=== PATIENT | male | born 1935 | race Caucasian/White ===

== ENCOUNTER → 2017-08-07 | Outpatient (CLI) | payer MEDICARE, OTHER | END | disposition home or self-care (01) | LOC: GMAH 10:33 | PROVIDERS: ATTEND Family Medicine | DX: E78.2 Mixed hyperlipidemia (principal); Z12.5 Encounter for screening for malignant neoplasm of prostate | CPT/HCPCS: 84443; 84550; G0103 ==

== ENCOUNTER → 2017-08-13 | Outpatient (CLI) | payer MEDICARE, OTHER ==
--- NOTE | 2017-08-14 10:39 | CT ---
EXAM DESCRIPTION: Chest w/o Contrast CLINICAL HISTORY: 82 years, Male, COPD W/ ACUTE EXACERBATION COMPARISON: August 04, 2016 TECHNIQUE: Thin-section noncontrast axial CT images are obtained according to our protocol. Reconstructed MPR images are created and reviewed as well. This exam was performed according to our departmental dose-optimization program, which includes automated exposure control, adjustment of the mA and/or kV according to patient size and/or use of iterative reconstruction technique. FINDINGS: Noncontrast imaging demonstrates advanced emphysema involving both lungs with modest volume loss in the right hemithorax suggesting prior surgical resection and small pericardial effusion is present with normal sized heart. Extensive vascular calcification without aortic aneurysm and extensive coronary calcification is noted. The thoracic inlet and superior mediastinum are unremarkable and no central hilar masses are seen. Pulmonary window images demonstrate slightly coarsened interstitial and fibrotic markings at the lung bases consistent with mild subpleural fibrotic change and mild bullous change, increased slightly from previous years study. Dense lobar or segmental consolidation or pleural effusion is not apparent. Tiny amount of bronchiectasis at the posterior lateral right lung base is evident. Stable postsurgical changes in the posterior right chest wall are suggested with partial resection of a posterior rib and some deformity of the next rib cephalad. IMPRESSION: 1. Diffuse bilateral advanced emphysematous changes with mild basilar of bullous changes in developing mild honeycombing at each lung base consistent with early basilar pulmonary fibrotic disease. 2. Slightly coarsened interstitial markings at the lung bases, more prominent than July 2016 study consistent with minimal inflammation but no lobar or segmental consolidation seen. 3. Interval development of small pericardial effusion. 4. Extensive aortic, great vessel, and coronary calcification. 5. No pulmonary mass or metastatic disease or cardiac decompensation seen. 6. Modest volume loss right hemithorax, unchanged and most consistent with prior right-sided thoracic surgery Electronically signed by: Walter Peace MD 08/14/2017 10:37 AM CDT
== END | disposition home or self-care (01) ==
LOC: CT 11:00
PROVIDERS: ATTEND Family Medicine
DX: J44.1 Chronic obstructive pulmonary disease with (acute) exacerbation (principal)

== ENCOUNTER → 2017-09-11 | Outpatient (CLI) | payer MEDICARE, OTHER ==
--- NOTE | 2017-09-14 08:18 | US ---
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 FINDINGS: The right carotid system demonstrates severe intimal thickening. The common carotid artery demonstrates severe amount of plaques throughout. And very irregular and mixed. With stenosis up to about 80% cross-sectional reduction at the proximal internal carotid artery. The left carotid system demonstrates severe intimal thickening. The common carotid artery demonstrates large amount irregular mixed plaques as well.. The internal carotid artery demonstrates large amount Plaques resulting up to about a 60-70% cross-sectional area reduction. The right carotid system demonstrates unremarkable waveforms. The right vertebral artery demonstrates antegrade flow. The left carotid system demonstrates unremarkable waveforms. The left vertebral artery demonstrates antegrade flow. On the right, the velocity in the proximal common carotid artery is 95 cm/sec. The proximal internal carotid artery is 148 cm/sec. The ICA/CCA ratio is 1.6 On the left, the velocity in the proximal common carotid artery is 101 cm/sec. The mid internal carotid artery is 132 cm/sec. The ICA/CCA ratio is 1.3. IMPRESSION: Large amount of irregular mixed plaque burden in both carotid systems. Resulting in about 80% cross-sectional reduction the right proximal internal carotid artery and about a 60-70% in the left. Although hemodynamically these do not measure as much. Recommend CT angiography for greater detailed evaluation. Electronically signed by: Renato Michael MD 09/14/2017 8:17 AM CDT
== END | disposition home or self-care (01) ==
LOC: US 10:09
PROVIDERS: ATTEND Family Medicine
DX: I65.23 Occlusion and stenosis of bilateral carotid arteries (principal)

== ENCOUNTER → 2017-10-22 | Outpatient (CLI) | payer MEDICARE, OTHER ==
--- NOTE | 2017-10-23 04:22 | RAD ---
Examination: XR SHOULDER 2 OR MORE VIEWS dated 10/22/2017 7:59 AM [facility] STAFF History: PAIN IN RIGHT SHOULDER Comparison: None Technique: Four views of the right shoulder FINDINGS AND IMPRESSION: Multiple suture anchors are seen within the humeral head. There are mild degenerative changes of the acromioclavicular and glenohumeral joints. No fracture or dislocation. Surgical sutures of the right lung. Electronically signed by: Nicko Nur MD 10/23/2017 4:20 AM [facility] STA[facility]
== END | disposition home or self-care (01) ==
LOC: RAD 08:00
PROVIDERS: ATTEND Orthopaedic Surgery
DX: M25.511 Pain in right shoulder (principal)

== ENCOUNTER → 2018-02-09 | Outpatient (CLI) | payer OTHER | LOC: GMAH 16:43 | PROVIDERS: ATTEND Family Medicine | DX: R07.82 Intercostal pain (principal); R07.89 Other chest pain ==

== ENCOUNTER 2018-05-13 12:02 | Emergency (ER) | payer OTHER ==
[2018-05-13 12:17] VITALS: TEMP 96.7
--- NOTE | 2018-05-13 12:49 | ED.PDOC ---
History of Present Illness - General Chief Complaint: Cardiovascular Problem Stated Complaint: Low heart rate, weakness Time Seen by Provider: 05/13/18 12:33 Source: patient Additional Information: 82 YEAR OLD WHITE MALE WITH KNOWN HISTORY OF CAD HAD STENT SUPPORTED ANGIOPLASTY FOLLOWED BY [facility]ER[facility] VALVULOPLASTY AT [facility] Thursday [place] FIRST 2 DAYS AFTER DISCHARGE SINCE THEN HE HAS BEEN FEELING WEAK DIZZY [place] ON AMBULATION AND HAS NO ENERGY TO MOVE AROUND HE ALSO REPORTS SHORTNESS OF BREATH WITH EXERTION NO SYNCOPAL EPISODE NO CHEST PAIN REPORTED NO SWELLING IN THE LEGS HE WAS SEEN AT HIS DOCTORS OFFICE THIS MORNING DR ROBBINS CALLED HERE AND EAS CONCERNED ABOUT POSSIBLE HEART BLOCK THE EKG DONE AT HIS OFFICE WAS EVIDENT FOR BRADYARRYTHMIA LEFT AXIS DEVIATION AND RBBB - History of Present Illness Timing/Duration: getting worse, changing over time Severity: moderate Associated Symptoms: shortness of breath, weakness Allergies/Adverse Reactions: Allergies NO KNOWN ALLERGY Allergy (Verified 05/13/18 12:17) Home Medications: Ambulatory Orders Allopurinol [Zyloprim] 300 mg PO DAILY 08/09/15 Aspirin [Baby Aspirin] 81 mg PO QD 08/09/15 Bisacodyl [Dulcolax] 5 mg PO BID 08/09/15 Estazolam 1 mg PO BEDTIME 08/09/15 Fiber [Fiber Formula] 1 cap PO QID 08/09/15 Fluticasone Furoate [Veramyst] 50 mcg NA BEDTIME 08/09/15 Gabapentin [Neurontin] 300 mg PO TID 08/09/15 Levothyroxine Sodium 50 mcg PO DAILY 08/09/15 Losartan Potassium 50 mg PO DAILY 08/09/15 Misc Natural Products [Saw [place] Plus] 2 cap PO DAILY 08/09/15 Multiple Vitamins W/ Minerals [Centrum Silver] 1 tab PO DAILY 08/09/15 Omeprazole 20 mg PO DAILY 08/09/15 Simvastatin 20 mg PO BEDTIME 08/09/15 Tamsulosin HCl [Flomax] 0.4 mg PO BEDTIME 08/09/15 Celecoxib 200 mg PO DAILY 08/10/16 Finasteride 5 mg PO BEDTIME 08/10/16 Nu Remedy Plus 1 each PO BEDTIME 08/10/16 Olopatadine HCl [Pataday] 1 drop BOTH_EYES DAILY 08/10/16 Olopatadine HCl [Pazeo] 1 drop BOTH_EYES DAILY 08/10/16 Columbia Xl 1 each PO QID 08/10/16 Ondansetron HCl [Zofran] 4 mg PO Q6H PRN #20 tab 08/10/16 Review of Systems - Review of Systems Constitutional: States: no symptoms reported, weakness EENTM: States: no symptoms reported Respiratory: States: short of breath Cardiology: States: no symptoms reported Gastrointestinal/Abdominal: States: no symptoms reported Genitourinary: States: no symptoms reported Musculoskeletal: States: no symptoms reported Skin: States: no symptoms reported Neurological: States: no symptoms reported Endocrine: States: no symptoms reported Past Medical History (General) - Patient Medical History Hx Seizures: No Hx Stroke: No Hx Dementia: No Hx of COPD: No Hx Cardiac Disorders: Yes - Aortic valve replacement 04/2018; hyperlipidemia Hx Congestive Heart Failure: No Hx Hypertension: Yes Hx Thyroid Disease: Yes Hx Diabetes: No Hx Gastroesophageal Reflux: Yes Hx Cancer: Yes - lung CA (R) 2010 with partial bilat upper lobectomies Hx MRSA: No Surgical History: other - Vaccination History Hx Influenza Vaccination: Yes - 2016 Hx Pneumococcal Vaccination: Yes - 2016 - Social History Hx Tobacco Use: No Family Medical History - Family History Father Family History: No Known Living Status: Cause of : Old age Physical Exam - Physical Exam General Appearance: Alert, Anxious Eye Exam: bilateral normal Ears, Nose, Throat: hearing grossly normal, normal ENT inspection, normal pharynx, abnormal TM (R) Neck: non-tender, full range of motion, supple Respiratory: chest non-tender, lungs clear, normal breath sounds, no respiratory distress, no accessory muscle use Cardiovascular/Chest: normal peripheral pulses, regular rate, rhythm, no edema, no gallop, no JVD, no murmur Peripheral Pulses: radial,right: 2+, radial,left: 2+, femoral,right: 2+, femoral ,left: 2+ Gastrointestinal/Abdominal: normal bowel sounds, non tender, soft, no organomegaly Back Exam: normal inspection, no CVA tenderness, no vertebral tenderness, CVA tenderness (R) Neurologic: city 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-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 nml as tested, no motor/sensory deficits, alert, normal mood/affect, oriented x 3 Progress - Results/Orders Results/Orders: Laboratory Tests 06/28/18 12:32 WBC 9.5 RBC 3.91 L Hgb 9.7 L Hct 30.2 L MCV 77.2 L MCH 24.8 L MCHC 32.2 L RDW 17.1 H Plt Count 117 L MPV 8.2 Absolute Neuts (auto) 6.20 Absolute Lymphs (auto) 2.10 Absolute Monos (auto) 1.00 H Absolute Eos (auto) 0.20 Absolute Basos (auto) 0.10 Neutrophils % 64.9 Lymphocytes % 22.2 Monocytes % 10.5 H Eosinophils % 1.6 Basophils % 0.8 PT 12.7 H INR 1.100 PTT (SP) 29.9 Sodium 139 Potassium 4.5 Chloride 108 Carbon Dioxide 26 Anion Gap 9.5 L BUN 26 H Creatinine 1.38 H BUN/Creatinine Ratio 18.8 Random Glucose 95 Serum Osmolality 282.1 Calcium 8.5 Magnesium 2.3 Creatine Kinase 73 CK-MB (CK-2) 1.3 CK-MB (CK-2) % Not Reportable Troponin I 0.05 B-Natriuretic Peptide 75.[address] DARIUS DAVIES WATER FITNESS INSTRUCTOR AT [facility] HE ACCECPTED THE PATIENT FOR TRANSFER FOR POSSIBLE PACE MAKER DISCUSSED WITH DR ROBBINS OF THE EVENTS WILL ARRANGE TRANSFER - EKG/XRAY/CT Comments: FIRST DEGREE AV BLOCK RBBB LAD XRAY: chest - normal Departure - Departure Clinical Impression: Bradyarrhythmia, First degree atrioventricular block Time of Disposition: 14:18 Disposition: Transfer to Hospital Condition: Good Departure Forms: ED Discharge - Pt. Copy, Patient Portal Self Enrollment Instructions: DI for Chest Pain Referrals: Josias Robbins MD [Primary Care Provider] - 1-2 Weeks Home Medications: Ambulatory Orders Allopurinol [Zyloprim] 300 mg PO DAILY 08/09/15 Aspirin [Baby Aspirin] 81 mg PO QD 08/09/15 Bisacodyl [Dulcolax] 5 mg PO BID 08/09/15 Estazolam 1 mg PO BEDTIME 08/09/15 Fiber [Fiber Formula] 1 cap PO QID 08/09/15 Fluticasone Furoate [Veramyst] 50 mcg NA BEDTIME 08/09/15 Gabapentin [Neurontin] 300 mg PO TID 08/09/15 Levothyroxine Sodium 50 mcg PO DAILY 08/09/15 Losartan Potassium 50 mg PO DAILY 08/09/15 Misc Natural Products [Saw [place] Plus] 2 cap PO DAILY 08/09/15 Multiple Vitamins W/ Minerals [Centrum Silver] 1 tab PO DAILY 08/09/15 Omeprazole 20 mg PO DAILY 08/09/15 Simvastatin 20 mg PO BEDTIME 08/09/15 Tamsulosin HCl [Flomax] 0.4 mg PO BEDTIME 08/09/15 Celecoxib 200 mg PO DAILY 08/10/16 Finasteride 5 mg PO BEDTIME 08/10/16 Nu Remedy Plus 1 each PO BEDTIME 08/10/16 Olopatadine HCl [Pataday] 1 drop BOTH_EYES DAILY 08/10/16 Olopatadine HCl [Pazeo] 1 drop BOTH_EYES DAILY 08/10/16 Columbia Xl 1 each PO QID 08/10/16 Ondansetron HCl [Zofran] 4 mg PO Q6H PRN #20 tab 08/10/16 Comments: PATIENT WILL BE TRANSFERED TO [facility] UNDER THE SERVICE OF WATER FITNESS INSTRUCTOR DR DAVIES
--- NOTE | 2018-05-13 13:13 | RAD ---
EXAM DESCRIPTION: Chest,1 View CLINICAL HISTORY: 82 years Male, Bradycardia, s/p aortic valve replacement COMPARISON: CT chest dated 08/05/2017. TECHNIQUE: AP radiograph of the chest was obtained. FINDINGS: Trachea is midline.The cardiomediastinal silhouette is normal in size. The pulmonary vasculature is within normal limits. Blunting of the right costophrenic secondary to pleural thickening and/or small pleural effusion. No acute consolidation. No evidence of pleural effusions. IMPRESSION: Blunting of the right costophrenic secondary to pleural thickening and/or small pleural effusion. Electronically signed by: Lilibeth Sims MD 05/13/2018 1:12 PM CDT
[2018-05-13 16:19] VITALS: BP 149/95; O2SAT 95
== END 2018-05-13 16:05 | disposition short-term general hospital (02) ==
LOC: ER 12:02
DX: I44.0 Atrioventricular block, first degree (principal); I49.8 Other specified cardiac arrhythmias; E78.5 Hyperlipidemia, unspecified; I10 Essential (primary) hypertension; E07.9 Disorder of thyroid, unspecified; K21.9 Gastro-esophageal reflux disease without esophagitis; Z95.5 Presence of coronary angioplasty implant and graft; Z95.2 Presence of prosthetic heart valve; Z79.82 Long term (current) use of aspirin; Z85.118 Personal history of other malignant neoplasm of bronchus and lung

== ENCOUNTER → 2019-01-19 | Outpatient (CLI) | payer OTHER | LOC: GMAH 10:44 | PROVIDERS: ATTEND Family Medicine | DX: I10 Essential (primary) hypertension (principal); Z12.5 Encounter for screening for malignant neoplasm of prostate | CPT/HCPCS: 84443; 84550; G0103 ==

== ENCOUNTER → 2019-05-10 | Outpatient (CLI) | payer OTHER | LOC: LAB.O 12:09 | PROVIDERS: ATTEND Internal Medicine Interventional Cardiology | DX: Q23.0 Congenital stenosis of aortic valve (principal) ==

== ENCOUNTER → 2020-03-20 | Outpatient (CLI) | payer OTHER | LOC: GMA MATASK 11:05 | PROVIDERS: ATTEND Family Medicine | DX: M79.602 Pain in left arm (principal) ==

== ENCOUNTER → 2020-03-23 | Outpatient (CLI) | payer OTHER | LOC: GMA MATASK 11:42 | PROVIDERS: ATTEND Family Medicine | DX: I11.0 Hypertensive heart disease with heart failure (principal); I50.32 Chronic diastolic (congestive) heart failure ==

== ENCOUNTER → 2020-03-27 | Outpatient (CLI) | payer OTHER | LOC: ECHO 15:56 | PROVIDERS: ATTEND Family Medicine | DX: I50.32 Chronic diastolic (congestive) heart failure (principal); I51.7 Cardiomegaly; Z95.2 Presence of prosthetic heart valve; Z95.0 Presence of cardiac pacemaker ==

== ENCOUNTER 2020-03-29 01:54 | Observation (INO) | payer OTHER ==
[2020-03-29] MEDS ORDERED: ASPIRIN (ENTERIC COATED) 325 MG TAB PO ONE (02:15)
[2020-03-29] MEDS ORDERED: NITROGLYCERIN 0.4 MG 25 EA TAB SL ONE (02:15)
--- NOTE | 2020-03-29 02:19 | ED.PDOC ---
History of Present Illness - General Chief Complaint: Chest Pain/OK Stated Complaint: chest pain to left chest wall and back Time Seen by Provider: 03/29/20 02:15 Additional Information: This is an 84-year-old male patient, with history of coronary artery disease, with history of stents and valve replacement, patient presents to the ER with left-sided chest pain, that woke him up from his sleep, this pain is been an ongoing problem is been going on for 10 days, but today it woke him up from his sleep so he decided to come in and get himself checked Pain is gotten better Patient does not appear in distress Patient denies any nausea vomiting chills shortness of breath no diaphoresis denies any dizziness or headaches or any other concerns - History of Present Illness Severity/Quality: sharp Location: other Chest Pain Radiation: no radiation Activities at Onset: sleep Prior Chest Pain/Cardiac Workup: echocardiography Improving Factors: nothing Worsening Factors: nothing Nitro Today/Relief: no nitro taken today Aspirin Treatment Today: no aspirin today Allergies/Adverse Reactions: Allergies NO KNOWN ALLERGY Allergy (Verified 05/13/18 12:17) Home Medications: Ambulatory Orders Allopurinol [Zyloprim] 300 mg PO DAILY 08/09/15 Aspirin [Baby Aspirin] 81 mg PO QD 08/09/15 Bisacodyl [Dulcolax] 5 mg PO BID 08/09/15 Estazolam 1 mg PO BEDTIME 08/09/15 Fiber [Fiber Formula] 1 cap PO QID 08/09/15 Fluticasone Furoate [Veramyst] 50 mcg NA BEDTIME 08/09/15 Gabapentin [Neurontin] 300 mg PO TID 08/09/15 Levothyroxine Sodium 50 mcg PO DAILY 08/09/15 Losartan Potassium 50 mg PO DAILY 08/09/15 Misc Natural Products [Saw [place] Plus] 2 cap PO DAILY 08/09/15 Multiple Vitamins W/ Minerals [Centrum Silver] 1 tab PO DAILY 08/09/15 Omeprazole 20 mg PO DAILY 08/09/15 Simvastatin 20 mg PO BEDTIME 08/09/15 Tamsulosin HCl [Flomax] 0.4 mg PO BEDTIME 08/09/15 Celecoxib 200 mg PO DAILY 08/10/16 Finasteride 5 mg PO BEDTIME 08/10/16 Nu Remedy Plus 1 each PO BEDTIME 08/10/16 Olopatadine HCl [Pataday] 1 drop BOTH_EYES DAILY 08/10/16 Olopatadine HCl [Pazeo] 1 drop BOTH_EYES DAILY 08/10/16 Lena Xl 1 each PO QID 08/10/16 Ondansetron HCl [Zofran] 4 mg PO Q6H PRN #20 tab 08/10/16 Review of Systems - Review of Systems Constitutional: States: no symptoms reported EENTM: States: no symptoms reported Respiratory: States: no symptoms reported Cardiology: States: chest pain Gastrointestinal/Abdominal: States: no symptoms reported Genitourinary: States: no symptoms reported Musculoskeletal: States: no symptoms reported Skin: States: no symptoms reported Neurological: States: no symptoms reported Endocrine: States: no symptoms reported Hematologic/Lymphatic: States: no symptoms reported Past Medical History (General) - Patient Medical History Hx Seizures: No Hx Stroke: No Hx Dementia: No Hx Asthma: No Hx of COPD: No Hx Cardiac Disorders: Yes - Aortic valve replacement 04/2018; hyperlipidemia, stents Hx Congestive Heart Failure: No Hx Pacemaker: Yes Hx Hypertension: Yes Hx Thyroid Disease: Yes Hx Diabetes: No Hx Gastroesophageal Reflux: Yes Hx Renal Disease: No Hx Cancer: Yes - lung CA (R) 2010 with partial bilat upper lobectomies Hx of HIV: No Hx Hepatitis C: No Hx MRSA: No - Vaccination History Hx Tetanus, Diphtheria Vaccination: Yes - unknown date Hx Influenza Vaccination: Yes - 2016 Hx Pneumococcal Vaccination: Yes - 2017 - Social History Hx Tobacco Use: No Family Medical History - Family History Father Family History: No Known Living Status: Cause of : Old age Physical Exam - Physical Exam General Appearance: Anxious, Well Developed, Well Groomed Eyes, Ears, Nose, Throat Exam: PERRL/EOMI, normal ENT inspection, TMs normal Neck: non-tender, full range of motion, supple, normal inspection Respiratory: chest non-tender, lungs clear, normal breath sounds, no respiratory distress, no accessory muscle use Cardiovascular/Chest: normal peripheral pulses, regular rate, rhythm, no edema, no gallop, no JVD, no murmur Peripheral Pulses: radial,right: 2+, radial,left: 2+ Gastrointestinal/Abdominal: normal bowel sounds, non tender, soft, no organomegaly, no pulsatile mass Extremity: normal range of motion, non-tender, normal inspection, no pedal edema, no calf tenderness, normal capillary refill Neurologic: 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 TECHNIQUE: XR CHEST 1 VIEW 03/29/2020 2:09 AM CDT FINDINGS: The heart is mildly enlarged. Left dual- chamber pacemaker is present. Lungs are clear without consolidation, atelectasis, mass or edema. There is no pleural effusion. There is no pneumothorax. There are no acute osseous findings. IMPRESSION: Clear lungs. 03/29/20 02:35 03/29/20 02:40 This a patient presents to the ER with chest pain, patient has multiple risk factor for coronary artery disease including stents including valve replacement, patient pain got better with aspirin and nitro went from a 7 to a 5, patient chest x-ray did not show evidence of whether we will start him no cephalization no pleural effusions for serial troponins were negative, patient does not appear any distress did receive aspirin nitro in the ER will consult with the hospitalist for admission for chest pain work-up will get a second set of troponin at the 2-hour shanika 03/29/20 02:42 Patient will be admitted for chest pain work-up Departure - Departure Clinical Impression: Chest pain Qualifiers: Chest pain type: unspecified Qualified Code(s): R07.9 - Chest pain, unspecified Disposition: Admit Patient Departure Forms: ED Discharge - Pt. Copy, Patient Portal Self Enrollment Instructions: DI for Chest Pain Referrals: Jamison Malin MD [Primary Care Provider] - 1-2 Weeks Home Medications: Ambulatory Orders Allopurinol [Zyloprim] 300 mg PO DAILY 08/09/15 Aspirin [Baby Aspirin] 81 mg PO QD 08/09/15 Bisacodyl [Dulcolax] 5 mg PO BID 08/09/15 Estazolam 1 mg PO BEDTIME 08/09/15 Fiber [Fiber Formula] 1 cap PO QID 08/09/15 Fluticasone Furoate [Veramyst] 50 mcg NA BEDTIME 08/09/15 Gabapentin [Neurontin] 300 mg PO TID 08/09/15 Levothyroxine Sodium 50 mcg PO DAILY 08/09/15 Losartan Potassium 50 mg PO DAILY 08/09/15 Misc Natural Products [Saw [place] Plus] 2 cap PO DAILY 08/09/15 Multiple Vitamins W/ Minerals [Centrum Silver] 1 tab PO DAILY 08/09/15 Omeprazole 20 mg PO DAILY 08/09/15 Simvastatin 20 mg PO BEDTIME 08/09/15 Tamsulosin HCl [Flomax] 0.4 mg PO BEDTIME 08/09/15 Celecoxib 200 mg PO DAILY 08/10/16 Finasteride 5 mg PO BEDTIME 08/10/16 Nu Remedy Plus 1 each PO BEDTIME 08/10/16 Olopatadine HCl [Pataday] 1 drop BOTH_EYES DAILY 08/10/16 Olopatadine HCl [Pazeo] 1 drop BOTH_EYES DAILY 08/10/16 Lena Xl 1 each PO QID 08/10/16 Ondansetron HCl [Zofran] 4 mg PO Q6H PRN #20 tab 08/10/16 Decision To Admit - Decistion To Admit Decision to Admit Reason: Admit from ER Decision to Admit Date: 03/29/20 Decision to Admit Time: 02:41
--- NOTE | 2020-03-29 02:28 | RAD ---
CLINICAL HISTORY: chest pain COMPARISON: 05/05/2018. TECHNIQUE: XR CHEST 1 VIEW 03/29/2020 2:09 AM CDT FINDINGS: The heart is mildly enlarged. Left dual-chamber pacemaker is present. Lungs are clear without consolidation, atelectasis, mass or edema. There is no pleural effusion. There is no pneumothorax. There are no acute osseous findings. IMPRESSION: Clear lungs. Electronically signed by: Kota Caban MD 03/29/2020 2:27 AM CDT
[2020-03-29] MEDS ORDERED: ACETAMINOPHEN 325 MG TAB PO PRN (05:18)
[2020-03-29] MEDS ORDERED: NITROGLYCERIN 0.4 MG 25 EA TAB SL PRN (05:18)
[2020-03-29] MEDS ORDERED: MORPHINE SULFATE INJ 10 MG/ML VIAL IV PRN (05:18)
[2020-03-29] MEDS ORDERED: SODIUM CHLORIDE 0.9% (FLUSH) 10 ML SYG IV PRN (05:18)
[2020-03-29] MEDS ORDERED: ALBUTEROL SULFATE 2.5 MG/3 ML VIAL NEB PRN (05:27)
[2020-03-29] MEDS ORDERED: IV SET AND CAP CHANGE INJ INJ SCH (05:30)
[2020-03-29] MEDS ORDERED: GABAPENTIN 400 MG CAP ONE (07:27)
[2020-03-29] MEDS ORDERED: LEVOTHYROXINE SODIUM 0.075 MG TAB ONE (07:27)
[2020-03-29] MEDS ORDERED: BISACODYL TAB 5 MG TAB PO SCH (09:00)
[2020-03-29] MEDS ORDERED: SODIUM CHLORIDE 0.9% (FLUSH) 10 ML SYG IV SCH (09:00)
[2020-03-29] MEDS ORDERED: CLOPIDOGREL 75 MG TAB PO SCH (09:00)
[2020-03-29] MEDS ORDERED: POLYETHYLENE GLYCOL 3350 17 GM PCKT PO SCH (09:00)
[2020-03-29] MEDS ORDERED: ENOXAPARIN SODIUM 40 MG/0.4 ML SYG SUBCU SCH (09:00)
[2020-03-29] MEDS ORDERED: ALLOPURINOL 300 MG TAB PO SCH (09:00)
[2020-03-29] MEDS ORDERED: ASPIRIN (CHEWABLE) 81 MG TAB PO SCH (09:00)
[2020-03-29] MEDS ORDERED: LEVOTHYROXINE SODIUM 0.075 MG TAB PO SCH (09:00)
[2020-03-29] MEDS: GABAPENTIN 400 MG CAP PO SCH ×2 (09:19→14:30)
[2020-03-29 14:51] VITALS: BP 126/78; TEMP 98.1; O2SAT 94
[2020-03-29] MEDS ORDERED: FINASTERIDE 5 MG TAB PO SCH (21:00)
[2020-03-29] MEDS ORDERED: FLUTICASONE FUROATE 50 MCG SCH (21:00)
[2020-03-29] MEDS ORDERED: CETIRIZINE HCL 10 MG TAB PO SCH (21:00)
[2020-03-29] MEDS ORDERED: TAMSULOSIN 0.4 MG CAP PO SCH (21:00)
[2020-03-29] MEDS ORDERED: SIMVASTATIN 20 MG TAB PO SCH (21:00)
[2020-03-30] MEDS ORDERED: ASPIRIN TABLET 325 MG TAB PO SCH (09:00)
--- NOTE | 2020-04-10 14:09 | SSS ---
SUPERVISING PHYSICIAN: Quique Meléndez MD DATE OF ADMISSION: 03/29/20 DATE OF DISCHARGE: 03/29/20 DISCHARGE DIAGNOSIS: 1. Left sided chest pain. Acute coronary syndrome has been ruled out with negative serial cardiac enzymes and no EKG changes as well as his chest pain has resolved. 2. Congestive heart failure with mild diastolic etiology. He has an ejection fraction of 50-55% on his echocardiogram completed on 03/27/20. 3. Hypertension on medication. 4. Coronary artery stenosis. 5. Hypothyroidism. HISTORY OF PRESENT ILLNESS: This is an 84-year-old male patient who presented to the Emergency Room due to left sided chest pain. It has been going off and on for several days, but it woke him up during the night and was much worse than it has been. It actually woke him up during his sleep. He presented to the Emergency Room. He actually had an echocardiogram done several days before, but he had not heard the results from it. There was no diaphoresis, nausea or vomiting. He did say that it did radiate up to his left neck, but was not in his back. His initial vital signs showed temperature 98.1, heart rate 80, blood pressure 185/113, respiratory rate 18, O2 saturation 94%. His lab studies showed CBC that was basically unremarkable. Electrolytes were unremarkable with a creatinine of 1.72. His baseline creatinine is 1.2. His initial cardiac enzymes were negative. He had followup cardiac enzymes in 2 hours and were also negative. His urinalysis was unremarkable. His chest x-ray showed clear lungs. His EKG showed normal sinus rhythm with a left bundle branch block. I was called by the ER physician to place the patient in observation. PAST MEDICAL HISTORY: 1. Coronary artery stenosis. 2. Hypertension. 3. Hyperlipidemia. 4. Hypothyroidism. 5. Gout. PAST SURGICAL HISTORY: 1. Right total knee arthroplasty. 2. Rotator cuff repair, bilaterally. 3. Back surgery. 4. Hemorrhoidectomy. 5. Valve replacement. 7. Pacemaker insertion. OUTPATIENT MEDICATIONS: 1. Albuterol sulfate. 2. Ascorbic acid. 3. Fiber. 4. New Remedy Plus. 5. [place] 3 fatty acids. 6. Allopurinol. 7. Aspirin. 8. Bisacodyl. 9. Plavix. 10. Finasteride. 11. Fluticasone nasal spray. 12. Gabapentin. 13. Levothyroxine. 14. Simvastatin. 15. Tamsulosin. ALLERGIES: NO KNOWN DRUG ALLERGIES. FAMILY HISTORY: Noncontributory. SOCIAL HISTORY: He quit smoking in 1995. He denies any ETOH or illicit drug use. He lives at home with his in [place]. REVIEW OF SYSTEMS: GENERAL: Negative for fever, fatigue or weight changes. HEENT: Negative for sinus symptoms, ear pain or sore throat. RESPIRATORY: Negative for wheezing, coughing or shortness of breath. CARDIAC: As per history of present illness. GASTROINTESTINAL: Negative for nausea, vomiting, diarrhea, constipation. MUSCULOSKELETAL: Negative for arthralgias, myalgias. NEUROLOGIC: Negative for headache, dizziness or seizures. PHYSICAL EXAMINATION: VITAL SIGNS: Temperature 98.1. Heart rate 82. Blood pressure 126/78. Respiratory rate 16. O2 saturation 94% on room air. GENERAL: This is an 84-year-old male patient sitting up in his hospital bed. He is in no acute distress. HEENT: Normocephalic, atraumatic. Pupils are equal and reactive. Oropharynx is clear. NECK: Supple without mass. RESPIRATORY: Essentially clear to auscultation bilaterally. CARDIOVASCULAR: Regular rate and rhythm. GASTROINTESTINAL: Abdomen is soft, nondistended, nontender. Bowel sounds are positive. NEUROLOGIC: Awake, alert and oriented times three. Cranial nerves II-XII are grossly intact as tested. SKIN: Warm and dry. LABORATORY: Labs and films are as per history of present illness. His followup serial cardiac enzymes were all negative. His echocardiogram from 03/27/20 shows 1) Mild left atrial enlargement. 2) Mild right atrial enlargement. 3) Pacer wire is noted in the right atrium. 4) Mild concentric left ventricular hypertrophy. 5) Left ventricular ejection fraction 50-55%. 6) Abnormal septal wall motion due to postoperative state. 7) Mechanical valve in the aortic position with normal function, but study was technically difficult. HOSPITAL COURSE: The patient was placed in observation. There were no further complaints of chest pain. Initially, he did not have his echocardiogram report and was quite concerned with that. We were able to get his echocardiogram with results and those have been sent to Dr. Malin's office. He will need further workup by Dr. Malin as well as his orthopaedic surgeon. He will be discharged home in stable condition. DISCHARGE PLAN: The patient will be discharged home in stable condition. He is to resume his previous diet and increase his activity as tolerated. He has a followup with Dr. Malin on 04/02/20 at 9:45 am. He is to resume his home medications. He is to return to the hospital or followup with Dr. Malin for any problems or complications. DISCHARGE MEDICATIONS: 1. Fiber. 2. Aspirin. 3. Levothyroxine. 4. Tamsulosin. 5. Simvastatin. 6. Allopurinol. 7. Gabapentin. 8. Fluticasone nasal spray. 9. Finasteride. 10. [place] 3 fatty acids. 11. New Remedy Plus. 12. Levocetirizine. 13. Plavix. 14. Albuterol sulfate nebulizers. 15. Dulcolax. 16. Vitamin C. #[id number] [facility]
== END 2020-03-29 15:59 | disposition home or self-care (01) ==
LOC: ER 01:54 → MS 04:45
PROVIDERS: ADMIT Nurse Practitioner Acute Care; ATTEND Nurse Practitioner Acute Care
DX: R07.89 Other chest pain (principal); I11.0 Hypertensive heart disease with heart failure; I50.32 Chronic diastolic (congestive) heart failure; I25.10 Atherosclerotic heart disease of native coronary artery without angina pectoris; E03.9 Hypothyroidism, unspecified; E78.5 Hyperlipidemia, unspecified; M10.9 Gout, unspecified; K21.9 Gastro-esophageal reflux disease without esophagitis; I44.7 Left bundle-branch block, unspecified; Z79.02 Long term (current) use of antithrombotics/antiplatelets; Z79.82 Long term (current) use of aspirin; Z79.899 Other long term (current) drug therapy; Z95.2 Presence of prosthetic heart valve; Z95.0 Presence of cardiac pacemaker; Z96.651 Presence of right artificial knee joint; Z87.891 Personal history of nicotine dependence; Z85.118 Personal history of other malignant neoplasm of bronchus and lung; Z90.2 Acquired absence of lung [part of]
CPT/HCPCS: 96372; J1650; 82553 ×4; 80053; 36415 ×2; 81001; 85025; 82550 ×4; 84484 ×4; 83880; 71045; 94760 ×2; 99285; 93005 ×2; G0378

== ENCOUNTER → 2020-05-25 | Outpatient (CLI) | payer OTHER ==
--- NOTE | 2020-05-25 10:30 | CT ---
EXAM DESCRIPTION: Chest w/o Contrast CLINICAL HISTORY: 84 years, Male, THORACIC SPINE PAIN COMPARISON: Previous chest x-ray March 29, 2020, previous CT chest August 13, 2017 TECHNIQUE: Thin-section noncontrast axial CT images are obtained according to our protocol. Reconstructed MPR images are created and reviewed as well. FINDINGS: Lungs: Infiltrative changes are seen in the anterior aspect of the left upper lobe adjacent to extrapleural mass involving the anterior left second rib with subtle cortical erosive changes. The mass involving the anterior chest wall measures 7.5 x 3.8 cm on the axial images. On sagittal reformatted images, this measures approximately 6.2 cm in craniocaudal dimension. The adjacent abnormal lung could be pneumonia or could be infiltration of the lung by neoplastic mass. Lung cancer with chest wall invasion would be a major consideration. Nonmalignant mass such as no cardiac infection might be considered. Metastatic lesion of the rib from elsewhere or lymphoma of the chest wall might also be considered. Correlate with results of biopsy. This abnormality is new compared to the previous chest CT in July 2017 no lung infiltrate was seen at that time. Severe emphysema was present in July 2017. Subpleural fibrotic changes are seen in the upper lobes bilaterally. Infiltrate is seen in the left upper lobe with a reticular pattern with some airspace disease. Cavitary changes are seen in the anterior left upper lobe. Severe emphysema is seen throughout both lungs. Rib deformities on the right consistent with previous thoracic surgery or trauma. Mediastinum: Lymph nodes are normal in size. Cardiac pacer is in place. Prosthetic aortic valve in the heart. Normal vascular contours. Heart size is prominent with no pericardial effusion. Extensive coronary arterial calcification. Lower neck/supraclavicular: No mass or adenopathy. Thyroid gland is small. Upper abdomen: Unremarkable upper abdominal viscera. Coronal and sagittal reformatted images confirm the findings. Patient has a history of T-spine pain. Advanced degenerative disc disease in lower cervical spine and lower thoracic spine. No spinal canal compromise. No bony destructive lesion of the spine or sternum. On the coronal images, the left anterior chest wall tumor is anterior and lateral to the usual site of the pain post tumor and no involvement of the brachial plexus is evident. I called the office and left message on Dr. Malin's office answering machine at the time of image interpretation 10:27 AM on 05/25/2020. 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 Contiguous left upper lobe infiltrate could be malignant or infectious. See above. This exam was performed according to our departmental dose-optimization program, which includes automated exposure control, adjustment of the mA and/or kV according to patient size and/or use of iterative reconstruction technique. Total DLP equals 670.88 mGycm. Electronically signed by: Eduardo Lagos MD 05/25/2020 10:29 AM CDT
== END ==
LOC: CT 09:17
PROVIDERS: ATTEND Family Medicine
DX: R22.2 Localized swelling, mass and lump, trunk (principal); M89.9 Disorder of bone, unspecified

== ENCOUNTER 2020-08-01 09:10 | Inpatient (IN) | payer MEDICARE ==
[2020-08-01] MEDS ORDERED: SODIUM CHLORIDE 0.9% 1000ML 1,000 ML ONE (09:36)
[2020-08-01] MEDS ORDERED: SODIUM CHLORIDE 0.9% 1000ML 1,000 ML IVS ONE (09:37)
[2020-08-01] MEDS ORDERED: metroNIDAZOLE IV PREMIX 500MG 500 MG in PREMIX BAG 1 BAG IVPB ONE (09:38)
[2020-08-01] MEDS ORDERED: SUCRALFATE 1 GM/10 ML 1 GM UD PO ONE (09:50)
[2020-08-01] MEDS ORDERED: ONDANSETRON ODT 8 MG TAB SL ONE (09:50)
--- NOTE | 2020-08-01 11:21 | ED.PDOC ---
History of Present Illness - General Chief Complaint: General Stated Complaint: gen. weakness, N/V, diarrhea Time Seen by Provider: 08/01/20 09:34 Source: patient Exam Limitations: no limitations - History of Present Illness Initial Comments: The patient is a 84-year-old male presented emergency room secondary to persistent diarrhea that started Thursday night or Thursday morning. He is also had a couple episodes of nausea and vomiting. He is feeling dehydrated and a little bit weak. He does have numerous chronic other medical problems including COPD and is oxygen dependent. The patient tested positive for C. difficile colitis Thursday night. He has not yet started treatment for it. No fever. No blood in the stool or the vomitus. No real abdominal pain, just queasiness. No syncope. Questionable near syncopal event however. No chest pain. Chronic shortness of breath. No runny nose or sore throat. Timing/Duration: other - 3 or 4 days Severity: moderate Improving Factors: nothing Worsening Factors: eating Associated Symptoms: loss of appetite, malaise, nausea/vomiting, weakness Allergies/Adverse Reactions: Allergies Morphine Allergy (Verified 08/01/20 09:27) Home Medications: Ambulatory Orders Allopurinol [Zyloprim] 300 mg PO DAILY 08/09/15 Aspirin [Baby Aspirin] 81 mg PO QD 08/09/15 Fiber [Fiber Formula] 1 cap PO .5TIMESDAILY 08/09/15 Fluticasone Furoate [Veramyst] 50 mcg NA BEDTIME 08/09/15 Gabapentin [Neurontin] 400 mg PO TID 08/09/15 Levothyroxine Sodium 75 mcg PO QAM 08/09/15 Simvastatin 20 mg PO BEDTIME 08/09/15 Tamsulosin HCl [Flomax] 0.4 mg PO BEDTIME 08/09/15 Finasteride 5 mg PO BEDTIME 08/10/16 Nu Remedy Plus 1 each PO BEDTIME 08/10/16 [place] Xl 1 each PO QID 08/10/16 Albuterol Sulfate Nebs [Proventil Nebs] 2.5 mg INH PRN 03/29/20 Ascorbic Acid [Vitamin C 500 mg] 1,000 mg PO DAILY 03/29/20 Bisacodyl [Dulcolax] 5 mg PO DAILY 03/29/20 Clopidogrel Bisulfate [Plavix] 75 mg PO QD 03/29/20 Levocetirizine Dihydrochloride [Levocetirizine Dihydrochl] 5 mg PO BEDTIME 03/29/20 Metronidazole 500 mg PO TID #45 tab 08/01/20 Ondansetron Odt [Zofran ODT] 4 mg PO Q8HR PRN #10 tab 08/01/20 Sucralfate Tab [Carafate Tab] 1 gm PO QID #120 tab 08/01/20 Review of Systems - Review of Systems Constitutional: States: malaise, weakness - Generalized EENTM: States: no symptoms reported Respiratory: States: no symptoms reported Cardiology: States: no symptoms reported Gastrointestinal/Abdominal: States: see HPI, diarrhea, nausea Musculoskeletal: States: no symptoms reported Skin: States: no symptoms reported Neurological: States: no symptoms reported - Occasional dizziness Endocrine: States: no symptoms reported All other Systems: No Change from Baseline Past Medical History (General) - Patient Medical History Hx Seizures: No Hx Stroke: No Hx Dementia: No Hx Asthma: No Hx of COPD: No Hx Cardiac Disorders: Yes - Aortic valve replacement 04/2018; hyperlipidemia, stents Hx Congestive Heart Failure: No Hx Pacemaker: Yes Hx Hypertension: Yes Hx Thyroid Disease: Yes Hx Diabetes: No Hx Gastroesophageal Reflux: Yes Hx Renal Disease: No Hx Cancer: Yes - lung CA (R) 2010 with partial bilat upper lobectomies Hx of HIV: No Hx Hepatitis C: No Hx MRSA: No - Vaccination History Hx Tetanus, Diphtheria Vaccination: Yes - unknown date Hx Influenza Vaccination: Yes - 2016 Hx Pneumococcal Vaccination: Yes - 2017 - Social History Hx Tobacco Use: No Hx Alcohol Use: No Hx Substance Use: No Hx Physical Abuse: No Hx Emotional Abuse: No - Activities of Daily Living Hospice Agency (if applicable):: None - Female History Patient is a Female of Child Bearing Age (10 -59 yrs old): No Family Medical History - Family History Father Family History: No Known Living Status: Cause of : Old age Physical Exam - Physical Exam General Appearance: Alert, Ill Appearing Eye Exam: bilateral normal Ears, Nose, Throat: hearing grossly normal, normal pharynx Neck: non-tender, supple Respiratory: lungs clear, normal breath sounds, no respiratory distress, no accessory muscle use Cardiovascular/Chest: normal peripheral pulses, regular rate, rhythm, no edema Peripheral Pulses: radial,right: 2+, radial,left: 2+ Gastrointestinal/Abdominal: soft, other - No rebound or peritoneal signs. No obvious palpable mass. No point tenderness. 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 difficile colitis and dehydration related to it. Laboratory work is reassuring. The patient has responded well to IV fluids and nausea medications. He is going to be placed on metronidazole for 14 days. I do want him to follow back up with his primary care doctor either before the weekend or just after the weekend for repeat evaluation. The patient will likely not be able to attend his chemotherapy tomorrow. It will of course be the decision of him and his oncologist when to resume that. The patient does need to maintain a bland diet. He will be written for Zofran to control nausea and vomiting and he will also be written for Carafate to reduce acid. Obviously if the patient is worsening rather than improving in spite of above measures, then repeat and additional evaluation would be warranted and possibly inpatient treatment. The patient does understand this and agrees to this. ER warnings are given. the patient has been offered admission here today but defers. mireya cochran [id number] - Results/Orders Results/Orders: 08/01/20 09:37 Telemetry .CONTINUOUS Vital Signs-Tilt PRN tilt vitals positive by pulse and drop in blood pressure. 08/01/20 09:45 EKG STAT shows a sinus rhythm with a ventricularly paced beat. 91 bpm. Wider QRS complex. No obvious acute new pathology. Laboratory Results - last 24 hr 08/01/20 08/01/20 09:30 09:30 WBC 6.1 RBC 4.11 L Hgb 11.5 L Hct 34.1 L MCV 83.0 MCH 28.1 MCHC 33.8 RDW 14.9 H Plt Count 258 MPV 7.2 L Absolute Neuts (auto) 4.40 Absolute Lymphs (auto) 1.20 Absolute Monos (auto) 0.40 Absolute Eos (auto) 0.10 Absolute Basos (auto) 0.00 Neutrophils % 72.4 Lymphocytes % 19.2 L Monocytes % 7.0 Eosinophils % 1.1 Basophils % 0.3 Sodium 136 Potassium 3.7 Chloride 103 Carbon Dioxide 24 Anion Gap 12.7 BUN 13 Creatinine 0.96 BUN/Creatinine Ratio 13.5 Random Glucose 138 H Serum Osmolality 274.3 L Calcium 8.3 L Magnesium 1.9 Total Bilirubin 0.6 AST 26 ALT 26 Alkaline Phosphatase 53 D Creatine Kinase 14 L CK-MB (CK-2) 0.8 CK-MB (CK-2) % Not Reportable Troponin I 0.04 B-Natriuretic Peptide 120.0 H Serum Total Protein 6.3 L Albumin 2.6 L Globulin 3.7 H Albumin/Globulin Ratio 0.7 L Amylase 27 L Lipase 26 Departure - Departure Clinical Impression: C. difficile colitis, Orthostasis Disposition: Discharge to Home or Self Care Condition: Fair Departure Forms: ED Discharge - Pt. Copy, Patient Portal Self Enrollment Diet: bland diet Activity: increase activity as tolerated Referrals: Jamison Malin MD [Primary Care Provider] - 1-5 Days Prescriptions: Ondansetron Odt [Zofran ODT] 4 mg PO Q8HR PRN #10 tab PRN Reason: Nausea--Moderate Sucralfate Tab [Carafate Tab] 1 gm PO QID #120 tab Metronidazole 500 mg PO TID #45 tab Home Medications: Ambulatory Orders Allopurinol [Zyloprim] 300 mg PO DAILY 08/09/15 Aspirin [Baby Aspirin] 81 mg PO QD 08/09/15 Fiber [Fiber Formula] 1 cap PO .5TIMESDAILY 08/09/15 Fluticasone Furoate [Veramyst] 50 mcg NA BEDTIME 08/09/15 Gabapentin [Neurontin] 400 mg PO TID 08/09/15 Levothyroxine Sodium 75 mcg PO QAM 08/09/15 Simvastatin 20 mg PO BEDTIME 08/09/15 Tamsulosin HCl [Flomax] 0.4 mg PO BEDTIME 08/09/15 Finasteride 5 mg PO BEDTIME 08/10/16 Nu Remedy Plus 1 each PO BEDTIME 08/10/16 [place] Xl 1 each PO QID 08/10/16 Albuterol Sulfate Nebs [Proventil Nebs] 2.5 mg INH PRN 03/29/20 Ascorbic Acid [Vitamin C 500 mg] 1,000 mg PO DAILY 03/29/20 Bisacodyl [Dulcolax] 5 mg PO DAILY 03/29/20 Clopidogrel Bisulfate [Plavix] 75 mg PO QD 03/29/20 Levocetirizine Dihydrochloride [Levocetirizine Dihydrochl] 5 mg PO BEDTIME 03/29/20 Metronidazole 500 mg PO TID #45 tab 08/01/20 Ondansetron Odt [Zofran ODT] 4 mg PO Q8HR PRN #10 tab 08/01/20 Sucralfate Tab [Carafate Tab] 1 gm PO QID #120 tab 08/01/20 Additional Instructions: The patient is an 84-year-old male presented emergency room secondary to symptoms consistent with his C. difficile colitis and dehydration related to it. Laboratory work is reassuring. The patient has responded well to IV fluids and nausea medications. He is going to be placed on metronidazole for 14 days. I do want him to follow back up with his primary care doctor either before the weekend or just after the weekend for repeat evaluation. The patient will likely not be able to attend his chemotherapy tomorrow. It will of course be the decision of him and his oncologist when to resume that. The patient does need to maintain a bland diet. He will be written for Zofran to control nausea and vomiting and he will also be written for Carafate to reduce acid. Obviously if the patient is worsening rather than improving in spite of above measures, then repeat and additional evaluation would be warranted and possibly inpatient treatment. The patient does understand this and agrees to this. ER warnings are given.
--- NOTE | 2020-08-01 12:20 | HP ---
SUPERVISING PHYSICIAN: Walter Morales M.D. CHIEF COMPLAINT: Nausea and diarrhea. HISTORY OF PRESENT ILLNESS: This is an 84 year-old male patient who came to the Emergency Room secondary to persistent diarrhea that started about Thursday or Thursday. He actually had a pretty bad day on Thursday with multiple loose watery stools as well as some nausea with occasional vomiting. He has a history of several years ago having C-Difficile but he was recently diagnosed with lung cancer and he actually started his radiation treatments on July 18, and started chemotherapy the following week. When he was seeing his interventional radiologist last week he had some complaints of some mild upper respiratory issues with some drainage and some mild coughing. The interventional radiologist prescribed him some Amoxicillin and he took the Amoxicillin for 2 to 3 days when his symptoms started with diarrhea. In the Emergency Room his vital signs showed a temperature of 96.7, heart rate 92, blood pressure 160/76, respiratory rate 22 with an O2 saturation of 89%. Lab studies showed a WBC of 6.1 with a hemoglobin of 11.5, hematocrit of 34.1. Electrolytes are basically within normal limits with the exception of his calcium was slightly low at 8.3. Liver function tests were unremarkable. He does have an albumin of 2.6, serum total protein of 6.3. Amylase is 27, lipase of 26. He actually had had a stool study done on the and he was positive for C-Diff antigen and C-Diff toxin. He had not started any treatment yet. He was given some Flagyl in the Emergency Room as well as some fluids. I was called for hospital admission. PAST MEDICAL HISTORY: 1. Coronary artery stenosis. 2. Hypertension. 3. Hyperlipidemia. 4. Hypothyroidism. 5. Gout. 6. Recent diagnosis of lung cancer. PAST SURGICAL HISTORY: 1. Right total knee arthroplasty. 2. Bilateral rotator cuff repair. 3. Back surgery. 4. Hemorrhoidectomy. 5. Valve replacement. 7. Pacemaker insertion. OUTPATIENT MEDICATIONS: 1. Albuterol sulfate. 2. Ascorbic acid. 3. Fiber. 4. New Remedy Plus. 5. [place] 3 fatty acids. 6. Aspirin. 7. Bisacodyl. 8. Plavix. 9. Finasteride. 10. Fluticasone nasal spray. 11. Gabapentin. 12. Hydrocodone. 13. Levocetirizine. 14. Levothyroxine. 15. Simvastatin. 16. Tamsulosin. ALLERGIES: MORPHINE. FAMILY HISTORY: Noncontributory. SOCIAL HISTORY: He quit smoking in 1995. He denies any ETOH or illicit drug use. He lives in [place]. He is . REVIEW OF SYSTEMS: GENERAL: Positive for fatigue. Negative for fever or weight changes. HEENT: Negative for sinus symptoms, ear pain, vision changes or sore throat. He did have some mild coughing and drippy nose last but has not had any since that time. RESPIRATORY: Negative for wheezing, coughing or shortness of breath. CARDIAC: Negative for chest pain, palpitations or tachycardia. GASTROINTESTINAL: As per History of Present Illness. GENITOURINARY: Negative for hematuria, dysuria or polyuria. MUSCULOSKELETAL: Negative for arthralgias, myalgias. SKIN: Negative for lesions or rashes. NEUROLOGIC: Negative for headaches, weakness or seizures. PHYSICAL EXAMINATION: VITAL SIGNS: Temperature 97.6, heart rate 92, blood pressure 164/67, respiratory rate 22, O2 saturation 98% on 2 liters nasal cannula. GENERAL: This is an 84 year-old male patient lying in his hospital bed. He looks to be moderately sick. HEENT: Normocephalic, atraumatic. Pupils are equal and reactive. Oral mucous membranes are dry. Oropharynx is clear. NECK: Supple without mass. RESPIRATORY: Diminished breath sounds throughout, otherwise clear to auscultation bilaterally. He is a little bit tachypneic and at times is somewhat short of breath, especially with speaking. He speaks in 2 to 3 word phrases. CARDIOVASCULAR: Regular rate and rhythm. GASTROINTESTINAL: Abdomen is soft, nondistended. It is mildly but diffusely tender. Bowel sounds are hyperactive. SKIN: Warm and dry. GENITOURINARY: Deferred. BACK: Deferred. NEUROLOGIC: He is awake, slightly lethargic. Oriented times three. LABORATORY: Labs and films are as per History of Present Illness. ASSESSMENT: 1. C-Difficile colitis with concerns for developing sepsis with a normal white count in a patient with lung cancer. He does have an elevated respiratory rate at 22 and O2 saturation of 89% on room air, and a heart rate grater than 90. 2. Recently diagnosed with lung cancer presently on chemotherapy and radiation. 3. Upper respiratory symptoms approximately 1 week ago that he was treated with Amoxicillin. 4. History of C-Difficile colitis. 5. Hypertension. 6. Hyperlipidemia. 7. Carotid artery stenosis. 8. Hypothyroidism. 9. Gout. PLAN: The patient has been admitted to the hospital. He will have gentle fluids overnight and will treat him with oral Vancomycin and IV Flagyl. He will be on a clear liquid diet and we will adjust that as he tolerates his diet. Will have antiemetics as well as I will resume his home medications. He will have Lovenox for DVT prophylaxis as well as a PPI for ulcer prophylaxis. I have also continued his Albuterol as needed. His will contact Dr. Cao, his oncologist, to reschedule his radiation and chemotherapy treatments. Hopefully he can be discharged in 48 to 72 hours. Will continue to monitor closely and follow as needed. #[id number] [facility]
[2020-08-01] MEDS ORDERED: ALBUTEROL SULFATE 2.5 MG/3 ML VIAL NEB PRN (14:23)
[2020-08-01] MEDS ORDERED: ONDANSETRON INJ 4 MG/2 ML VIAL IV PRN (14:23)
[2020-08-01] MEDS ORDERED: SODIUM CHLORIDE 0.9% (FLUSH) 10 ML SYG IV PRN (14:23)
[2020-08-01] MEDS ORDERED: IV SET AND CAP CHANGE INJ INJ SCH (14:30)
[2020-08-01] MEDS ORDERED: VANCOMYCIN ORAL LIQUID 2,000 MG/80 ML BOTTLE PO SCH (14:30)
[2020-08-01] MEDS: KCL 20MEQ/0.45% NS 1,000 ML IVS PRN (15:13)
[2020-08-01] MEDS: ALBUTEROL SULFATE 2.5 MG/3 ML VIAL NEB SCH ×2 (16:30→20:00)
[2020-08-01] MEDS: VANCOMYCIN ORAL LIQUID 2,000 MG/80 ML BOTTLE PO SCH (17:11)
[2020-08-01] MEDS: metroNIDAZOLE IV PREMIX 500MG 500 MG in PREMIX BAG 1 BAG IVPB SCH (17:30)
[2020-08-01] MEDS: HYDROcodone 5MG/APAP 325MG 1 EA TAB PO PRN ×2 (17:30→22:02)
[2020-08-01] MEDS ORDERED: GABAPENTIN 400 MG CAP ONE (20:06)
[2020-08-01] MEDS: TAMSULOSIN 0.4 MG CAP PO SCH (20:16)
[2020-08-01] MEDS: CETIRIZINE HCL 10 MG TAB PO SCH (20:17)
[2020-08-01] MEDS: GABAPENTIN 300 MG CAP PO SCH (20:17)
[2020-08-01] MEDS: SIMVASTATIN 20 MG TAB PO SCH (20:17)
[2020-08-01] MEDS: ENOXAPARIN SODIUM 40 MG/0.4 ML SYG SUBCU SCH (20:18)
[2020-08-01] MEDS: SODIUM CHLORIDE 0.9% (FLUSH) 10 ML SYG IV SCH (20:18)
[2020-08-01] MEDS: FINASTERIDE 5 MG TAB PO SCH (20:18)
[2020-08-01] MEDS: FLUTICASONE PROP 0.05% NASAL 16 GM BTTL BNAS SCH (20:21)
[2020-08-01] MEDS ORDERED: FLUTICASONE FUROATE 50 MCG SCH (21:00)
[2020-08-01] MEDS ORDERED: NON-FORMULARY MEDICATION 1 EA MIS (Levocetirizine Dihydrochloride [Levocetirizine Dihydroc PO SCH (21:00)
[2020-08-02] MEDS: VANCOMYCIN ORAL LIQUID 2,000 MG/80 ML BOTTLE PO SCH ×5 (00:33→23:34)
[2020-08-02] MEDS: metroNIDAZOLE IV PREMIX 500MG 500 MG in PREMIX BAG 1 BAG IVPB SCH ×3 (01:55→18:14)
[2020-08-02] MEDS: HYDROcodone 5MG/APAP 325MG 1 EA TAB PO PRN ×3 (01:59→20:39)
[2020-08-02] MEDS: KCL 20MEQ/0.45% NS 1,000 ML IVS PRN ×2 (02:10→14:55)
[2020-08-02] MEDS: PANTOPRAZOLE SODIUM IV 40 MG VIAL IV SCH (06:25)
[2020-08-02] MEDS: LEVOTHYROXINE SODIUM 0.075 MG TAB PO SCH (06:26)
[2020-08-02] MEDS ORDERED: LEVOTHYROXINE SODIUM 75 MCG PO SCH (06:30)
[2020-08-02] MEDS ORDERED: GABAPENTIN 400 MG CAP ONE (08:21)
[2020-08-02] MEDS: ALBUTEROL SULFATE 2.5 MG/3 ML VIAL NEB SCH ×4 (08:35→20:20)
[2020-08-02] MEDS: ASPIRIN (CHEWABLE) 81 MG TAB PO SCH (08:48)
[2020-08-02] MEDS: GABAPENTIN 300 MG CAP PO SCH (08:48)
[2020-08-02] MEDS: BISACODYL TAB 5 MG TAB PO SCH (08:48)
[2020-08-02] MEDS: CLOPIDOGREL 75 MG TAB PO SCH (08:48)
[2020-08-02] MEDS: ALLOPURINOL 300 MG TAB PO SCH (08:48)
[2020-08-02] MEDS: SODIUM CHLORIDE 0.9% (FLUSH) 10 ML SYG IV SCH ×2 (08:49→21:25)
[2020-08-02] MEDS: BIFIDOBACTERIUM INFANTIS 4 MG CAP PO SCH (10:32)
[2020-08-02] MEDS: GABAPENTIN 400 MG CAP PO SCH ×2 (14:53→20:39)
[2020-08-02] MEDS: ACETAMINOPHEN 325 MG TAB PO PRN (17:07)
[2020-08-02] MEDS ORDERED: SODIUM CHL 0.9% 50ML MIN-BAG+ 50 ML IVPB ONE (20:27)
[2020-08-02] MEDS ORDERED: cefTRIAXone SODIUM 1 GM VIAL ONE (20:27)
[2020-08-02] MEDS ORDERED: AZITHROMYCIN IV 500 MG in SODIUM CHLORIDE 0.9% 250ML 250 ML IVPB SCH (20:30)
[2020-08-02] MEDS ORDERED: cefTRIAXone SODIUM 1 GM in SODIUM CHL 0.9% 50ML MIN-BAG+ 50 ML IVPB SCH (20:30)
[2020-08-02] MEDS: CETIRIZINE HCL 10 MG TAB PO SCH (20:38)
[2020-08-02] MEDS: TAMSULOSIN 0.4 MG CAP PO SCH (20:38)
[2020-08-02] MEDS: ENOXAPARIN SODIUM 40 MG/0.4 ML SYG SUBCU SCH (20:39)
[2020-08-02] MEDS: FINASTERIDE 5 MG TAB PO SCH (20:39)
[2020-08-02] MEDS: SIMVASTATIN 20 MG TAB PO SCH (20:39)
[2020-08-02] MEDS ORDERED: AZITHROMYCIN IV 500 MG VIAL IVPB ONE (21:17)
[2020-08-02] MEDS ORDERED: SODIUM CHLORIDE 0.9% 250ML 250 ML ONE (21:18)
[2020-08-02] MEDS: KCL 20MEQ/D5NS 1,000 ML IVS PRN (21:33)
[2020-08-02] MEDS ORDERED: FLUTICASONE PROP 0.05% NASAL 16 GM BTTL ONE (21:43)
[2020-08-02] MEDS: FLUTICASONE PROP 0.05% NASAL 16 GM BTTL BNAS SCH (21:44)
--- NOTE | 2020-08-02 22:19 | RAD ---
EXAM DESCRIPTION: Chest,1 View CLINICAL HISTORY: 84 years Male fever, C-Diff positive , s/p chemo. rad for Lung CA COMPARISON: 07/30/2020 FINDINGS: Cardiac size appears unchanged. Aortic valve noted. There is volume loss in the right chest with elevation the right hemidiaphragm and areas of fibrosis similar to the previous. IJ catheter on the right with the tip at the junction of the innominate and SVC. Pacemaker. No interval change. IMPRESSION: Post surgical changes and probable fibrosis in the right hemithorax No evidence of acute process Electronically signed by: Shweta Hernandez MD 08/02/2020 10:17 PM CDT
--- NOTE | 2020-08-02 22:30 | PN ---
SUPERVISING PHYSICIAN: Walter Morales M.D. DATE: 08/02/20 SUBJECTIVE: The patient continues to have multiple frequent stools. He is not really having any abdominal pains, but he continues to have copious amounts of stool at this point. He had run a fever. Discussed with him the plan of care to cover for underlying infection and done multiple cultures, including a chest x-ray and urinalysis to ensure there is not another source for the fever. He has not had any chest pains. Denies any nausea or vomiting. OBJECTIVE: VITAL SIGNS: T max temperature 101.0, pulse 96, blood pressure 122/59, respirations 20, satting 96% on 2 liters nasal cannula. GENERAL: The patient does look ill and tired, but he does not appear to be in any distress. CHEST: Lung sounds were fairly clear with some diminished sounds, more so present on the left compared to the right. No obvious wheezing or rhonchi are noted. HEART: Regular rate and rhythm. ABDOMEN: Soft, non-tender. Positive bowel sounds with bowel sounds being hyperactive. EXTREMITIES: Without any edema. NEUROLOGIC: He is alert and oriented times three. LABORATORY: White count 5,400, hemoglobin 9.2, hematocrit 27.0. There is no left shift noted at this point. Chemistries are showing a little low potassium. Sodium was 134, potassium 3.5, chloride normal at 22, anion gap was a little low at 10.5. BUN 9, creatinine 0.92, lactic acid 1.3, calcium 7.5 corrected for 2.1 albumin up to 8.3. Liver functions were all within normal limits this morning. Urinalysis was still pending. MICROBIOLOGY: Blood cultures are pending. Stool cultures are pending. COVID respiratory panel pending. RADIOLOGY: Chest x-ray is pending. ASSESSMENT: 1. C-Difficile colitis. 2. Sepsis probably related to #1 with the patient being febrile with pancultures completed and pending with the patient having immunocompromised system due to recent chemotherapy and radiation therapy for underlying lung cancer. 3. Left sided lung cancer recently started on chemotherapy and radiation. 4. History of recent use of antibiotics of Amoxicillin for treatment of upper respiratory symptoms at the start of his chemotherapy. 5. Past history of C-Difficile colitis. 6. Chronic hypertension. 7. Hyperlipidemia. 8. Carotid artery stenosis. 9. Hypothyroidism. 10. Gout. PLAN: Will with current plan with oral Vancomycin and IV Flagyl, but given that he is running 101 fever I did panculture him. Will await those results, but I think at this point until I can touch base with Dr. Loza given his immunocompromise from his recent chemotherapy and radiation for treatment of the lung cancer, I am going to give him a dose of Rocephin and azithromycin. Will get a chest x-ray in the morning. Will treat his diarrhea with fluids and hopefully this will start to slow down and resolve with the underlying Vancomycin treatment. He is on breathing treatments and aggressive pulmonary hygiene. I will see if I can talk to Dr. Cao tomorrow after I talk to Dr. Loza just to followup with him and let him know that he was running a low-grade fever and has underlying C-Diff infection. Will also start him on Align due to underlying treatment with antibiotics for C-Difficile infection. Until we can transition to outpatient management will continue to monitor and treat as needed. #[id number] [facility]
[2020-08-03] MEDS: metroNIDAZOLE IV PREMIX 500MG 500 MG in PREMIX BAG 1 BAG IVPB SCH ×3 (01:36→17:34)
[2020-08-03] MEDS: VANCOMYCIN ORAL LIQUID 2,000 MG/80 ML BOTTLE PO SCH ×4 (05:53→23:49)
[2020-08-03] MEDS: LEVOTHYROXINE SODIUM 0.075 MG TAB PO SCH (06:07)
[2020-08-03] MEDS: PANTOPRAZOLE SODIUM IV 40 MG VIAL IV SCH (06:07)
[2020-08-03] MEDS: ALBUTEROL SULFATE 2.5 MG/3 ML VIAL NEB SCH ×4 (08:50→20:00)
[2020-08-03] MEDS ORDERED: ALLOPURINOL 300 MG TAB PO SCH (09:00)
[2020-08-03] MEDS: CLOPIDOGREL 75 MG TAB PO SCH (09:22)
[2020-08-03] MEDS: GABAPENTIN 400 MG CAP PO SCH ×3 (09:22→21:18)
[2020-08-03] MEDS: BIFIDOBACTERIUM INFANTIS 4 MG CAP PO SCH (09:22)
[2020-08-03] MEDS: ALLOPURINOL 300 MG TAB PO SCH (09:22)
[2020-08-03] MEDS: ASPIRIN (CHEWABLE) 81 MG TAB PO SCH (09:22)
[2020-08-03] MEDS: SODIUM CHLORIDE 0.9% (FLUSH) 10 ML SYG IV SCH ×2 (09:23→21:31)
[2020-08-03] MEDS: ACETAMINOPHEN 325 MG TAB PO PRN (09:23)
[2020-08-03] MEDS: BISACODYL TAB 5 MG TAB PO SCH (09:55)
[2020-08-03] MEDS: KCL 20MEQ/D5NS 1,000 ML IVS PRN (19:54)
[2020-08-03] MEDS: HYDROcodone 5MG/APAP 325MG 1 EA TAB PO PRN (19:59)
[2020-08-03] MEDS: ENOXAPARIN SODIUM 40 MG/0.4 ML SYG SUBCU SCH (21:17)
[2020-08-03] MEDS: TAMSULOSIN 0.4 MG CAP PO SCH (21:17)
[2020-08-03] MEDS: SIMVASTATIN 20 MG TAB PO SCH (21:18)
[2020-08-03] MEDS: CETIRIZINE HCL 10 MG TAB PO SCH (21:18)
[2020-08-03] MEDS: FINASTERIDE 5 MG TAB PO SCH (21:18)
[2020-08-03] MEDS: FLUTICASONE PROP 0.05% NASAL 16 GM BTTL BNAS SCH (21:19)
--- NOTE | 2020-08-03 22:49 | PN ---
SUPERVISING PHYSICIAN: Walter Morales M.D. DATE: 08/03/20 SUBJECTIVE: The patient has done well overnight. He has not run a fever now for a little over 18 hours. All of his cultures and lab work were essentially unremarkable that were collected during the fever. He notes his stools numbers have significantly decreased. He is able to tolerate a diet at this point. No other complaints. OBJECTIVE: VITAL SIGNS: T max 101 and that was on 08/02/20. Blood pressure 90/60, heart rate 96, respirations 18, satting 97% on 2 liters nasal cannula. GENERAL: The patient does look ill and tired, but he does not appear to be in any distress. CHEST: Lung sounds were fairly clear with some diminished sounds, more so present on the left compared to the right. No obvious wheezing or rhonchi are noted. HEART: Regular rate and rhythm. ABDOMEN: Soft, non-tender. Positive bowel sounds with bowel sounds being hyperactive. EXTREMITIES: Without any edema. NEUROLOGIC: He is alert and oriented times three. LABORATORY STUDIES: White count is showing to be stable at 5,400, so we did repeat that yesterday. A repeat of his chemistry today showed his potassium was 3.4, normalized on sodium at 134. Creatinine remains stable at 0.86. MICROBIOLOGY: Blood cultures are still negative at 24 hours. Stool culture is still pending. RADIOLOGY: Chest x-ray yesterday again showed no signs of pneumonia. ASSESSMENT: 1. C-Difficile colitis. 2. Sepsis probably related to #1 with the patient being febrile with pancultures completed and pending with the patient having immunocompromised system due to recent chemotherapy and radiation therapy for underlying lung cancer. 3. Left sided lung cancer recently started on chemotherapy and radiation. 4. History of recent use of antibiotics of Amoxicillin for treatment of upper respiratory symptoms at the start of his chemotherapy. 5. Past history of C-Difficile colitis. 6. Chronic hypertension. 7. Hyperlipidemia. 8. Carotid artery stenosis. 9. Hypothyroidism. 10. Gout. PLAN: Will continue with antibiotic coverage with oral Vancomycin and IV Flagyl. He did get 1 dose of Rocephin and azithromycin given the findings on x- ray otherwise administered and his clinical presentation, and the fact that he does have C-Diff, I have not continued those today. Still trying to get hold of Dr. Loza and discuss the case with her, but I have made arrangements to have Vancomycin continued orally with the Pharmacy here in [place]. I discussed with him that if he continues to show good clinical progress overnight, will hopefully be able to discharge home tomorrow. Until we can discharge to transition to outpatient management will continue to monitor and treat as needed. [facility][id number] [facility]
[2020-08-04] MEDS: metroNIDAZOLE IV PREMIX 500MG 500 MG in PREMIX BAG 1 BAG IVPB SCH ×2 (01:49→10:45)
[2020-08-04] MEDS: VANCOMYCIN ORAL LIQUID 2,000 MG/80 ML BOTTLE PO SCH ×2 (05:45→12:25)
[2020-08-04] MEDS: PANTOPRAZOLE SODIUM IV 40 MG VIAL IV SCH (06:01)
[2020-08-04] MEDS: LEVOTHYROXINE SODIUM 0.075 MG TAB PO SCH (06:02)
[2020-08-04] MEDS: BIFIDOBACTERIUM INFANTIS 4 MG CAP PO SCH (09:34)
[2020-08-04] MEDS: CLOPIDOGREL 75 MG TAB PO SCH (09:34)
[2020-08-04] MEDS: ASPIRIN (CHEWABLE) 81 MG TAB PO SCH (09:34)
[2020-08-04] MEDS: GABAPENTIN 400 MG CAP PO SCH (09:34)
[2020-08-04] MEDS: ALLOPURINOL 300 MG TAB PO SCH (09:34)
[2020-08-04] MEDS: BISACODYL TAB 5 MG TAB PO SCH (09:34)
[2020-08-04 09:40] VITALS: BP 95/53; TEMP 97.8; O2SAT 93
[2020-08-04] MEDS: SODIUM CHLORIDE 0.9% (FLUSH) 10 ML SYG IV SCH (09:40)
--- NOTE | 2020-08-06 11:21 | DS ---
SUPERVISING PHYSICIAN: Walter Morales MD ADMISSION DIAGNOSIS: 1. C. difficile colitis with concerns for developing sepsis with a normal white count in a patient with lung cancer. He does have an elevated respiratory rate at 22 and O2 saturation of 89% on room air, and a heart rate grater than 90. 2. Recently diagnosed with lung cancer presently on chemotherapy and radiation. 3. Upper respiratory symptoms approximately 1 week ago that he was treated with Amoxicillin. 4. History of C-Difficile colitis. 5. Hypertension. 6. Hyperlipidemia. 7. Carotid artery stenosis. 8. Hypothyroidism. 9. Gout. DISCHARGE DIAGNOSIS: 1. C. difficile colitis, treated with oral vancomycin. 2. Sepsis secondary to #1, resolving with oral vancomycin. 3. Left sided lung cancer recently started on chemotherapy and radiation. 4. History of recent use of antibiotics of Amoxicillin for treatment of upper respiratory symptoms at the start of his chemotherapy. 5. Past history of C. difficile colitis. 6. Chronic hypertension. 7. Hyperlipidemia. 8. Carotid artery stenosis. 9. Hypothyroidism. 10. Gout. REASON FOR HOSPITALIZATION: This is an 84 year-old male patient who came to the Emergency Room secondary to persistent diarrhea that started about Thursday or Thursday. He actually had a pretty bad day on Thursday with multiple loose watery stools as well as some nausea with occasional vomiting. He has a history of several years ago having C-Difficile but he was recently diagnosed with lung cancer and he actually started his radiation treatments on July 18, and started chemotherapy the following week. When he was seeing his interventional radiologist last week he had some complaints of some mild upper respiratory issues with some drainage and some mild coughing. The interventional radiologist prescribed him some Amoxicillin and he took the Amoxicillin for 2 to 3 days when his symptoms started with diarrhea. In the Emergency Room his vital signs showed a temperature of 96.7, heart rate 92, blood pressure 160/76, respiratory rate 22 with an O2 saturation of 89%. Lab studies showed a WBC of 6.1 with a hemoglobin of 11.5, hematocrit of 34.1. Electrolytes are basically within normal limits with the exception of his calcium was slightly low at 8.3. Liver function tests were unremarkable. He does have an albumin of 2.6, serum total protein of 6.3. Amylase is 27, lipase of 26. He actually had had a stool study done on the and he was positive for C-Diff antigen and C-Diff toxin. He had not started any treatment yet. He was given some Flagyl in the Emergency Room as well as some fluids. I was called for hospital admission. LABORATORY: White count on discharge was 5,400. Left shift was not apparent. Absolute neutrophil count was within normal limits. Hemoglobin 9.2, hematocrit 27.0 and stable. Platelet count 209,000. Chemistries showed sodium 137, potassium 3.4, otherwise other electrolytes were within normal limits. Creatinine 0.86. Calcium 7.8 corrected for 2.1 albumin to 8.2. Urinalysis was within normal limits. MICROBIOLOGY: Blood cultures remained negative after 3 days. Stool cultures showed no enteric pathogens. Respiratory panel was negative for all bacterial and viral targets as tested including COVID and influenza. C. difficile was positive for both antigen and toxin that was done in the ER on 07/30/20. RADIOLOGY: Chest x-ray per radiologic interpretation showed post surgical changes and probable fibrosis in right hemithorax. No acute processes noted. Please see reports for details. HOSPITAL COURSE: Mr. Mcdaniel was admitted for C. difficile colitis. He was started on oral vancomycin and Flagyl IV. He did have near resolution of his loose stools. He was feeling much better, showing to be stable. He did run a mild fever, but blood cultures were negative. He was pancultured, but everything was negative. It was felt that he had received adequate treatment and was clinically stable to continue outpatient management with oral vancomycin. PLAN: Mr. Mcdaniel was discharged on 08/04/20 with instructions to followup with his primary care provider, Dr. Malin on one to five days. He is to call on Thursday to get an appointment. He was given oral vancomycin for a total of 10 days treatment at 125 mg. I did talk to Dr. Loza, Infectious Disease, and she recommended we not continue the Flagyl. He to encourage fluids to prevent dehydration and given instructions and warnings to return to the Emergency Department if he had any concerning symptoms. Diet was to resume usual diet as tolerated. Activity to increase as tolerated. MEDICATIONS PRESCRIBED ON DISCHARGE: 1. Zofran ODT 8 mg tablets as needed, #10, q.8h. 2. Vancomycin 125 mg 4 times a day for a total of 7 days plus hospitalization to equal 10 days, #28 tablets, no refills. All other medications prior to his hospitalization were continued. He was not to take any more antibiotics if he had any left at home from previous treatment. He is to call Dr. Malin's office on Thursday. CONDITION ON DISCHARGE: Stable and improved. DISPOSITION: The patient was discharged home to continue with outpatient management and followup with Dr. Malin. #[id number] [facility]
== END 2020-08-04 13:25 | disposition home or self-care (01) | DRG 872 ==
LOC: ER 09:10 → MS 12:16 → OBSVTOIN 12:16
PROVIDERS: ADMIT Nurse Practitioner Acute Care; ATTEND Nurse Practitioner Family
DX: A41.9 Sepsis, unspecified organism (principal); A04.71 Enterocolitis due to Clostridium difficile, recurrent; C34.92 Malignant neoplasm of unspecified part of left bronchus or lung; E86.0 Dehydration; I10 Essential (primary) hypertension; E78.5 Hyperlipidemia, unspecified; E03.9 Hypothyroidism, unspecified; M10.9 Gout, unspecified; Z96.651 Presence of right artificial knee joint; Z95.2 Presence of prosthetic heart valve; Z95.0 Presence of cardiac pacemaker; Z88.5 Allergy status to narcotic agent; Z79.82 Long term (current) use of aspirin; Z79.02 Long term (current) use of antithrombotics/antiplatelets; Z79.891 Long term (current) use of opiate analgesic; Z79.899 Other long term (current) drug therapy; Z87.891 Personal history of nicotine dependence

== ENCOUNTER → 2020-08-07 | Outpatient (CLI) | payer MEDICARE ==
[~2020-08-07] MED LIST: SODIUM CHLORIDE 0.9% 1000ML 1,000 ML IVS ONE
[2020-08-07 10:47] VITALS: BP 100/60; TEMP 97.9; O2SAT 94
== END ==
LOC: INFRM 09:57
PROVIDERS: ATTEND Family Medicine
DX: E86.0 Dehydration (principal); A04.72 Enterocolitis due to Clostridium difficile, not specified as recurrent
CPT/HCPCS: 96360; 96361; J7030

== ENCOUNTER 2020-08-09 15:27 | Observation (INO) | payer MEDICARE ==
--- NOTE | 2020-08-09 15:28 | HP ---
SUPERVISING PHYSICIAN: PAWEL FRANCISCO MD CHIEF COMPLAINT: Persistent diarrhea, dehydration. HISTORY OF PRESENT ILLNESS: Mr. Mcdaniel is an 84 year-old male patient of Dr. Francisco's who has a previous medical history of recent diagnosis of lung cancer and started on chemo and radiation within the last 30 days. He was in the hospital on 08/01 for C-Difficile colitis and was started on oral vancomycin and discharged home after a few days of hospitalization. He was seen in followup on Thursday after discharge and again the middle part of this week, requiring some fluids because he was having persistent diarrhea. Today, he was once again seen in the clinic and on physical examination was noted to be significant weakened and continues to have multiple episodes of diarrhea and is obviously dehydrated. Dr. Francisco requested the patient be placed in observation overnight for continued fluids and further evaluation in the morning. The patient was admitted in stable condition. PAST MEDICAL HISTORY: 1. Recent diagnosis of lung cancer, on chemo and radiation. 2. Recent diagnosis of C-difficile colitis, currently on treatment with oral vancomycin. 3. Coronary artery stenosis. 4. Hypertension. 5. Hyperlipidemia. 6. Hypothyroidism. 7. Gout. PAST SURGICAL HISTORY: 1. Right total knee arthroplasty. 2. Bilateral rotator cuff repair. 3. Back surgery. 4. Hemorrhoidectomy. 5. Valve replacement. 7. Pacemaker insertion. OUTPATIENT MEDICATIONS: 1. Vancomycin 125 mg b.i.d. p.o. 2. Flomax 0.4 mg. 3. Nystatin 20 mg daily. 4. Zofran as needed, 4 mg. 5. Joshua XL 1 tablet q.i.d. 6. Nu Remedy Plus, 1 at bedtime. 7. Levothyroxine 75 mcg daily. 8. Levocetirizine 5 mg at bedtime. 9. Gabapentin 400 mg daily. 10. Onia 5, one capsule every 4 hours as needed. 11. Veramyst 50 mcg nasal at bedtime. 12. Finasteride 5 mg at bedtime. 13. Fiber capsules, 1 t.i.d. 14. Plavix 75 mg daily. 15. Aspirin 81 mg daily. 16. Vitamin C 500 mg, 1000 g dl. 17. Allopurinol 300 mg daily. 18. Albuterol nebulizer, 3 mLs as needed p.r.n.. ALLERGIES: MORPHINE. FAMILY HISTORY: Noncontributory. SOCIAL HISTORY: He quit smoking in 1995. He denies any alcohol or illicit drug use. He lives in [place]. He is . REVIEW OF SYSTEMS: GENERAL: Positive for general fatigue. Denies fevers or unintentional weight changes. HEENT: Negative for earache, sore throat, nasal congestion, headaches, vision changes.. RESPIRATORY: Negative for wheezing, coughing or shortness of breath. CARDIAC: Negative for chest pain, palpitations or tachycardia. GASTROINTESTINAL: Persistent diarrhea, denies abdominal pains. MUSCULOSKELETAL: Negative for arthralgias, myalgias. SKIN: Negative for lesions or rashes. Right forearm is noted to be swollen with some blistering, possibly related to previous IV infusions. NEUROLOGIC: Negative for headaches, weakness or seizures. HEMATOLOGIC: Denies unexplained bleeding or bruising, no transfusion reactions. PHYSICAL EXAMINATION: VITAL SIGNS: Temperature 98.3, pulse 98, blood pressure 118/73, respiratory rate 22, O2 saturation 99% on 2 liters nasal cannula. GENERAL: The patient does look exhausted and ill. He does not look to be in any distress. HEENT: Tympanic membranes clear bilaterally. Oropharynx is pink, moist, without lesions. Mucous membranes were dry. NECK: Supple, non-tender, full range of motion. No jugular venous distention. RESPIRATORY: Lung sounds a little bit diminished towards the bases, otherwise clear. CARDIOVASCULAR: Regular rate and rhythm without any appreciable murmurs, rubs, or gallops. GASTROINTESTINAL: Abdomen is soft, nondistended. Bowel sounds are hyperactive. SKIN: Warm, pink and dry. Right arm with some blistering, bullous type reaction from the hand to the elbow. EXTREMITIES: Right arm shows some swelling with some mild edema, not pitting, compared to the left involving the hand and elbow with some skin blistering, a bullous reaction. No obvious drainage. NEUROLOGIC: He is alert and oriented 3. Cranial nerves II through XII are grossly intact. LABORATORY: White count 4,500, hemoglobin 10.9, hematocrit 32.3, platelet count 259,000, differential shows to be without a left shift. Chemistries show a potassium of 3.2, otherwise sodium is normal, BUN 10, creatinine 0.84, glucose 120, calcium 7.7 corrected to 8.2 with an albumin of 2.3. Liver functions all within normal limits. RADIOLOGY: None at time of admission. ASSESSMENT: 1. Persistent C-Difficile colitis. . 2. Moderate dehydration secondary to #1. 3. Right upper extremity, right forearm with swelling, etiology uncertain, possibly from previous IV fusions from hospitalization earlier this week. 4. Past history of C-difficile colitis. 5. Hypertension. 6. Hyperlipidemia. 7. Carotid artery stenosis. 8. Hypothyroidism. 9. Gout. PLAN: The patient is going to be placed in observation overnight given his history, his age and underlying comorbidities along with the recent infection and his ongoing chemo and radiation. He will be given fluids overnight cautiously to prevent any fluid overload. He is encouraged oral intake as well. Will continue to his home medications including his oral vancomycin. He will be on breathing treatments as needed with albuterol. He will be on Lovenox for DVT prophylaxis as well as a PPI for ulcer prophylaxis. We will reevaluate him in the morning and possibly getting a CT of his abdomen, certainly evaluate the ongoing colitis and diarrhea as well as possibly get an ultrasound of his right upper extremity given the swelling in his forearm. Until we can transition patient to outpatient management which hopefully will be within the next 24-48 hours, we will continue to monitor and treat as needed #[id number] [facility]
[2020-08-09] MEDS ORDERED: ACETAMINOPHEN 325 MG TAB PO PRN (16:20)
[2020-08-09] MEDS ORDERED: SODIUM CHLORIDE 0.9% (FLUSH) 10 ML SYG IV PRN (16:20)
[2020-08-09] MEDS ORDERED: ONDANSETRON INJ 4 MG/2 ML VIAL IV PRN (16:20)
[2020-08-09] MEDS ORDERED: IV SET AND CAP CHANGE INJ INJ SCH (16:30)
[2020-08-09] MEDS ORDERED: ALBUTEROL SULFATE 2.5 MG/3 ML VIAL NEB PRN (17:02)
[2020-08-09] MEDS ORDERED: HYDROcodone 5MG/APAP 325MG 1 EA TAB PO PRN (17:02)
[2020-08-09] MEDS ORDERED: CLOPIDOGREL 75 MG TAB PO SCH (17:30)
[2020-08-09] MEDS ORDERED: ASPIRIN (CHEWABLE) 81 MG TAB PO SCH (17:30)
[2020-08-09] MEDS: KCL 20MEQ/D5NS 1,000 ML IVS PRN (18:40)
[2020-08-09] MEDS ORDERED: GABAPENTIN 400 MG CAP ONE (19:10)
[2020-08-09] MEDS ORDERED: FLUTICASONE PROP 0.05% NASAL 16 GM BTTL ONE (19:11)
[2020-08-09] MEDS ORDERED: [UNRECOGNIZED DRUG - OTHER] PO SCH (21:00)
[2020-08-09] MEDS ORDERED: ENOXAPARIN SODIUM 40 MG/0.4 ML SYG SUBCU SCH (21:00)
[2020-08-09] MEDS: FLUTICASONE FUROATE 50 MCG SCH ×2 (21:00→21:02)
[2020-08-09] MEDS ORDERED: TAMSULOSIN 0.4 MG CAP PO SCH (21:00)
[2020-08-09] MEDS ORDERED: FINASTERIDE 5 MG TAB PO SCH (21:00)
[2020-08-09] MEDS ORDERED: NON-FORMULARY MEDICATION 1 EA MIS (Levocetirizine Dihydrochloride [Levocetirizine Dihydroc PO SCH (21:00)
[2020-08-09] MEDS ORDERED: SIMVASTATIN 20 MG TAB PO SCH (21:00)
[2020-08-09] MEDS: GABAPENTIN 300 MG CAP PO SCH (21:01)
[2020-08-09] MEDS: FIBER PO SCH (21:02)
[2020-08-09] MEDS: OMEGA PO SCH (21:03)
[2020-08-09] MEDS: VANCOMYCIN HCL 125 MG PO SCH (21:35)
[2020-08-10] MEDS: KCL 20MEQ/D5NS 1,000 ML IVS PRN (03:49)
[2020-08-10] MEDS ORDERED: POTASSIUM CHLORIDE 20 MEQ TAB PO ONE (08:14)
[2020-08-10] MEDS ORDERED: LEVOTHYROXINE SODIUM 0.075 MG TAB ONE (08:40)
[2020-08-10] MEDS ORDERED: GABAPENTIN 400 MG CAP ONE (08:40)
[2020-08-10] MEDS ORDERED: VANCOMYCIN HCL 125 MG PO SCH ×4 (09:00→13:00)
[2020-08-10] MEDS ORDERED: LEVOTHYROXINE SODIUM 75 MCG PO SCH (09:00)
[2020-08-10] MEDS ORDERED: ALLOPURINOL 300 MG TAB PO SCH (09:00)
[2020-08-10] MEDS ORDERED: ASCORBIC ACID 500 MG TAB PO SCH (09:00)
[2020-08-10] MEDS ORDERED: BIFIDOBACTERIUM INFANTIS 4 MG CAP PO SCH (09:00)
[2020-08-10] MEDS: OMEGA PO SCH ×2 (09:29→12:49)
[2020-08-10] MEDS: GABAPENTIN 300 MG CAP PO SCH (09:29)
[2020-08-10] MEDS: FIBER PO SCH ×2 (09:30→14:30)
[2020-08-10] MEDS ORDERED: DAPTOMYCIN 500 MG VIAL IVPB ONE (09:32)
[2020-08-10] MEDS: VANCOMYCIN HCL 125 MG PO SCH (09:33)
[2020-08-10] MEDS ORDERED: HYDROcodone 5MG/APAP 325MG 1 EA TAB ONE (09:54)
[2020-08-10] MEDS ORDERED: LEVOTHYROXINE SODIUM 0.075 MG TAB PO SCH (10:00)
[2020-08-10] MEDS ORDERED: ASPIRIN (CHEWABLE) 81 MG TAB PO SCH (10:00)
[2020-08-10] MEDS ORDERED: CLOPIDOGREL 75 MG TAB PO SCH (10:00)
[2020-08-10] MEDS: GABAPENTIN 400 MG CAP PO SCH ×2 (10:24→14:41)
[2020-08-10] MEDS: HYDROcodone 5MG/APAP 325MG 1 EA TAB PO PRN ×2 (10:25→14:41)
[2020-08-10] MEDS ORDERED: LORATADINE 10 MG TAB PO SCH ×2 (11:00→21:00)
--- NOTE | 2020-08-10 15:57 | US ---
EXAM DESCRIPTION: Venous,Upper Extremity RT: ULTRASOUND. CLINICAL HISTORY: RE edema COMPARISON: None Available. TECHNIQUE: Two -dimensional and doppler sonographic evaluation of the deep venous system of the right upper extremity. FINDINGS: Doppler evaluation shows normal color flow and normal phasicity and augmentation of the right subclavian, jugular, axillary, basilic, cephalic, brachial, radial vein and ulnar vein. The right upper extremity deep veins showed normal occlusion with transducer pressure. Two-dimensional survey showed no echogenic thrombus within these veins. IMPRESSION: Duplex ultrasound evaluation of the right upper extremity deep venous system showing no thrombosis . Electronically signed by: Tawanda Vasquez MD 08/10/2020 3:55 PM CDT
[2020-08-10 17:59] VITALS: BP 122/74; TEMP 97.8; O2SAT 95
[2020-08-10] MEDS ORDERED: FLUTICASONE PROP 0.05% NASAL 16 GM BTTL BNAS SCH (21:00)
--- NOTE | 2020-08-13 10:57 | DS ---
SUPERVISING PHYSICIAN: Jamison Malin MD ADMISSION DIAGNOSIS: 1. Persistent C. difficile colitis. 2. Moderate dehydration secondary to #1. 3. Right upper extremity, right forearm with swelling, etiology uncertain, possibly from previous IV infusions from hospitalization earlier this week. 4. Past history of C. difficile colitis. 5. Hypertension. 6. Hyperlipidemia. 7. Carotid artery stenosis. 8. Hypothyroidism. 9. Gout. DISCHARGE DIAGNOSIS: 1. C. difficile colitis, persistent, on oral therapy. 2. Moderate dehydration secondary to #1, resolved with fluids. 3. Right upper extremity, right forearm swelling, likely from previous IV infusions with ultrasound showing no acute deep venous thrombosis. 4. Past history of C. difficile colitis. 5. Hypertension. 6. Hyperlipidemia. 7. Carotid artery stenosis. 8. Hypothyroidism. 9. Gout. REASON FOR HOSPITALIZATION: Mr. Mcdaniel is an 84 year-old male patient of Dr. Malin's who has a previous medical history of recent diagnosis of lung cancer and started on chemo and radiation within the last 30 days. He was in the hospital on 08/01 for C-Difficile colitis and was started on oral vancomycin and discharged home after a few days of hospitalization. He was seen in followup on Thursday after discharge and again the middle part of this week, requiring some fluids because he was having persistent diarrhea. Today, he was once again seen in the clinic and on physical examination was noted to be significant weakened and continues to have multiple episodes of diarrhea and is obviously dehydrated. Dr. Malin requested the patient be placed in observation overnight for continued fluids and further evaluation in the morning. The patient was admitted in stable condition. LABORATORY: CBC showed a white count of 4,000, hemoglobin 9.7, hematocrit 28.5 on discharge. Platelet count 214,000. Differential was without a left shift. Chemistries showed potassium 3.2, BUN 6, creatinine 0.84. Liver functions were all within normal limits. Calcium 7.3, correct to 8.2 for albumin of 2.3. Urinalysis was within normal limits. MICROBIOLOGY: No specimens were submitted. RADIOLOGY: He had an upper extremity Doppler on the right which showed no thrombus. HOSPITAL COURSE: Mr. Mcdaniel was admitted for dehydration secondary to ongoing C. difficile colitis. He was given fluids overnight and showed good response to treatment. His vital signs were stable. Discharge vital signs showed pulse 84, blood pressure 122/74, respirations 16, saturation 95% on 2 liters nasal cannula. It was felt that he had improved well enough with his dehydration status with fluids overnight to discharge home and he was taking adequate oral intake and could maintain hydration at home. Dr. Malin was able to visit with the patient and further discuss the plan of care. The patient was in agreement to discharge home to continue with outpatient management. It should be noted that he also had 5 days of radiation therapy and weekly chemotherapy which was exacerbating his symptoms and he had hospitalization and missed nearly 2 weeks of therapy. PLAN: The patient was discharged home to followup in the outpatient setting with Dr. Malin. He is to call Dr. Malin's office on Thursday. He was to continue all his previous medications including oral vancomycin. He is to resume his activity as tolerated. He is to wear oxygen as tolerated at home. He was given warnings to return to the ER or call Dr. Malin's office should he have any worsening of symptoms. MEDICATIONS PRESCRIBED ON DISCHARGE: None. All medications as prior to hoarseness were continued. CONDITION ON DISCHARGE: Stable and improved. DISPOSITION: The patient is discharged home with home health. [facility][id number] [facility]
== END 2020-08-10 16:00 | disposition home health service (06) ==
LOC: INTOOBSV 15:27 → MS 15:27
PROVIDERS: ADMIT Nurse Practitioner Family; ATTEND Family Medicine
DX: A04.72 Enterocolitis due to Clostridium difficile, not specified as recurrent (principal); E86.0 Dehydration; R60.0 Localized edema; C34.90 Malignant neoplasm of unspecified part of unspecified bronchus or lung; I10 Essential (primary) hypertension; E78.5 Hyperlipidemia, unspecified; I65.29 Occlusion and stenosis of unspecified carotid artery; E03.9 Hypothyroidism, unspecified; M10.9 Gout, unspecified; I25.10 Atherosclerotic heart disease of native coronary artery without angina pectoris; Z79.82 Long term (current) use of aspirin; Z79.02 Long term (current) use of antithrombotics/antiplatelets; Z79.899 Other long term (current) drug therapy; Z92.21 Personal history of antineoplastic chemotherapy; Z92.3 Personal history of irradiation; Z86.19 Personal history of other infectious and parasitic diseases; Z88.6 Allergy status to analgesic agent; Z95.0 Presence of cardiac pacemaker; Z95.2 Presence of prosthetic heart valve; Z96.651 Presence of right artificial knee joint; Z87.891 Personal history of nicotine dependence
CPT/HCPCS: 96366 ×2; 96365; 96375; 96376; 96372; J2405; J1650; A4216; 80048; 80053; 36415 ×3; 81001; 85025 ×2; 83735; 83605; 93971; 94760 ×2; 97530; 97162; G0378

== ENCOUNTER → 2020-09-24 | Outpatient (CLI) | payer MEDICARE ==
--- NOTE | 2020-09-24 16:42 | RAD ---
EXAM DESCRIPTION: Hip,Left 2 Views CLINICAL HISTORY: pain in left hip COMPARISON: AP pelvis dated 09 May 2016 TECHNIQUE: 2 views left FINDINGS: Acetabular osteophyte formation is observed. Mild loss of joint space is noted. No fracture is detected. The pelvis is intact. IMPRESSION: Degenerative changes are observed in the left hip. No fracturing is detected. Electronically signed by: Renato Russo MD 09/24/2020 4:40 PM [facility]
--- NOTE | 2020-09-24 16:44 | RAD ---
EXAM DESCRIPTION: Chest,2 Views CLINICAL HISTORY: 85 years Male, pain in chest COMPARISON: 02 August 2020 TECHNIQUE: PA/lateral FINDINGS: A pacemaker is observed in place on the left. An [id number] catheter seen with the distal tip in the region of the superior vena cava. Chronic basilar parenchymal changes are observed. There is right-sided volume loss. The heart is within range of normal. No pleural fluid is seen. TAVR is observed in place. No acute parenchymal infiltrate is seen. IMPRESSION: Chronic parenchymal changes are observed in the lung bases. No acute cardiopulmonary pathology is seen. Electronically signed by: Renato Russo MD 09/24/2020 4:42 PM [facility]
== END ==
LOC: RAD 10:23
PROVIDERS: ATTEND Internal Medicine
DX: C34.11 Malignant neoplasm of upper lobe, right bronchus or lung (principal); R91.8 Other nonspecific abnormal finding of lung field; M16.12 Unilateral primary osteoarthritis, left hip

== ENCOUNTER → 2020-11-01 | Outpatient (CLI) | payer MEDICARE ==
--- NOTE | 2020-11-02 16:54 | US ---
EXAM DESCRIPTION: Soft Tissue,Extremity: ULTRASOUND. CLINICAL HISTORY: 85 years Male SWELLING. Palpable for one month. COMPARISON: None Available. TECHNIQUE: Transcutaneous scanning: Bonds-scale and Doppler modes.. Right upper arm, palpable site. FINDINGS: Subcutaneous hypoechoic tissue which is heterogeneous and possible posterior extension. Dimensions are 1.5 x 1.4 x 0.7 cm. Minimally vascular. No distinct cyst or fluid collection. No large calcifications. IMPRESSION: Cellulitis versus early abscess upper right arm. Palpable. Electronically signed by: Tawanda Vasquez MD 11/02/2020 4:52 PM [employer]ITY [employer]
== END ==
LOC: US 13:23
PROVIDERS: ATTEND Family Medicine
DX: R22.31 Localized swelling, mass and lump, right upper limb (principal)

== ENCOUNTER → 2020-11-13 | Outpatient (CLI) | payer MEDICARE ==
--- NOTE | 2020-11-13 15:43 | CT ---
EXAM DESCRIPTION: Head w/wo Contrast CLINICAL HISTORY: PISANO, LUNG CA, UNSTEADY GAIT COMPARISON: Previous CT head November 03, 2013 TECHNIQUE: CT brain is performed prior to and following IV administration of routine adult dose of nonionic iodinated IV contrast. FINDINGS: Ventricles and sulci are prominent on the precontrast images consistent with age-related cerebral volume loss. Extensive chronic white matter ischemic changes of the cerebral white matter. Abnormal left TMJ may be old trauma. Deformity of the nasal skeleton consistent with old fractures. Compared to previous study, nasal skeleton was not included in October 2013. Marked thinning of the soft tissues of the scalp in the right posterior frontal and anterior parietal region. There is no hemorrhage or mass. After IV contrast, repeat axial CT imaging of the brain shows normal enhancement of intracranial vessels. Normal holbrook-white matter differentiation. No enhancing mass within the brain to suggest brain metastasis. The calvarium is unremarkable. The visualized paranasal sinuses and the mastoids are clear. Coronal and sagittal reformatted images postcontrast show no evidence of brain metastasis. Positive intracranial internal carotid arterial calcification. IMPRESSION: No acute intracranial pathologic process. Senescent brain with extensive chronic microvascular ischemic disease of the cerebral white matter. This exam was performed according to our departmental dose-optimization program, which includes automated exposure control, adjustment of the mA and/or kV according to patient size and/or use of iterative reconstruction technique. Electronically signed by: Eduardo Lagos MD 11/13/2020 3:41 PM PARTS DELIVERY DRIVER
--- NOTE | 2020-11-13 21:13 | US ---
EXAM DESCRIPTION: Venous,Upper Extremity RT: ULTRASOUND. CLINICAL HISTORY: LOC SWELLING, MASS AND LUMP, RIGHT UPPER LIMB COMPARISON: None Available. TECHNIQUE: Two -dimensional and doppler sonographic evaluation of the deep venous system of the right upper extremity. FINDINGS: Doppler evaluation shows normal color flow and normal phasicity and augmentation of the right subclavian, jugular, axillary, basilic, cephalic, brachial, radial vein and ulnar vein. The right upper extremity deep veins showed normal occlusion with transducer pressure. Two-dimensional survey showed no echogenic thrombus within these veins. Well-circumscribed hypoechoic mass lateral right wrist measuring 1.2 x 1.1 x 0.5 cm nonvascular. Wider than tall orientation with posterior acoustic enhancement. IMPRESSION: Duplex ultrasound evaluation of the right upper extremity deep venous system showing no thrombosis . Possible ganglion cyst in the lateral right wrist. Electronically signed by: Tawanda Vasquez MD 11/13/2020 9:11 PM CROSS TIE CUTTER
== END ==
LOC: MRI 10:51
PROVIDERS: ATTEND Internal Medicine Medical Oncology
DX: Z01.812 Encounter for preprocedural laboratory examination (principal); R51.9 Headache, unspecified; G31.9 Degenerative disease of nervous system, unspecified; I67.82 Cerebral ischemia; R22.31 Localized swelling, mass and lump, right upper limb; M25.9 Joint disorder, unspecified; C34.11 Malignant neoplasm of upper lobe, right bronchus or lung

== ENCOUNTER 2020-11-27 12:07 | Observation (INO) | payer MEDICARE, OTHER ==
--- NOTE | 2020-11-27 13:07 | ED.PDOC ---
History of Present Illness - General Chief Complaint: General Stated Complaint: cough, stiff neck, dyspnea with activity Time Seen by Provider: 11/27/20 12:14 - History of Present Illness Initial Comments: PATIENT WITH CHRONIC XIAO DUE TO COPD, LUNG CANCER, CHRONIC NECK PAIN AND NOW A HEADACHE FOR 3 WEEKS. HIS DOCTOR OFFICE SENT HIM OVER TO THE ER FOR A COVID TEST ACCORDING TO HIS . DENIES F/C. Quality: mild Recent Head Trauma: no recent headache/trauma Improving Factors: nothing Worsening Factors: nothing Allergies/Adverse Reactions: Allergies Morphine Allergy (Verified 11/27/20 12:37) Home Medications: Ambulatory Orders Aspirin [Baby Aspirin] 81 mg PO QD 08/09/15 Fiber [Fiber Formula] 1 cap PO TID 08/09/15 Fluticasone Furoate [Veramyst] 50 mcg NA BEDTIME 08/09/15 Gabapentin [Neurontin] 400 mg PO TID 08/09/15 Levothyroxine Sodium 75 mcg PO QAM 08/09/15 Simvastatin 20 mg PO BEDTIME 08/09/15 Tamsulosin HCl [Flomax] 0.4 mg PO BEDTIME 08/09/15 Finasteride 5 mg PO BEDTIME 08/10/16 Nu Remedy Plus 1 each PO BEDTIME 08/10/16 [place] Xl 1 each PO QID 08/10/16 Ascorbic Acid [Vitamin C 500 mg] 1,000 mg PO DAILY 03/29/20 Clopidogrel Bisulfate [Plavix] 75 mg PO QD 03/29/20 Levocetirizine Dihydrochloride [Levocetirizine Dihydrochl] 5 mg PO BEDTIME 03/16 03/05 Albuterol Sulfate Nebs [Proventil Nebs] 3 ml NEB QID PRN 08/01/20 Allopurinol 300 mg PO DAILY 08/01/20 HYDROcodone 5MG/APAP 325MG [[place] 5/325] 1 tablet PO Q4HR PRN 08/01/20 Ondansetron Odt [Zofran Odt] 4 mg PO Q8HR PRN #10 tab 08/01/20 Review of Systems - Review of Systems Constitutional: States: no symptoms reported EENTM: States: no symptoms reported Respiratory: States: see HPI Cardiology: States: no symptoms reported Gastrointestinal/Abdominal: States: no symptoms reported Genitourinary: States: no symptoms reported Musculoskeletal: States: no symptoms reported Skin: States: no symptoms reported Neurological: States: no symptoms reported Endocrine: States: no symptoms reported Past Medical History (General) - Patient Medical History Hx Seizures: No Hx Stroke: No Hx Dementia: No Hx Asthma: No Hx of COPD: No Hx Cardiac Disorders: Yes - Aortic valve replacement 04/2018; hyperlipidemia, stents Hx Congestive Heart Failure: No Hx Pacemaker: Yes - 2018 Hx Hypertension: Yes Hx Thyroid Disease: Yes Hx Diabetes: No Hx Gastroesophageal Reflux: Yes Hx Renal Disease: No Hx Cancer: Yes - lung cancer Hx of HIV: No Hx Hepatitis C: No Hx MRSA: No - Vaccination History Hx Tetanus, Diphtheria Vaccination: Yes - unknown date Hx Influenza Vaccination: Yes - 2016 Hx Pneumococcal Vaccination: Yes - 2017 - Social History Hx Tobacco Use: No Hx Alcohol Use: No Hx Substance Use: No Hx Physical Abuse: No Hx Emotional Abuse: No - Activities of Daily Living Hospice Agency (if applicable):: None - Female History Patient is a Female of Child Bearing Age (10 -59 yrs old): No Family Medical History - Family History Father Family History: No Known Living Status: Cause of : Old age Physical Exam - Physical Exam General Appearance: Alert, Comfortable, Well Developed, Well Groomed, Well Hydrated, Well Nourished Eyes, Ears, Nose, Throat Exam: PERRL/EOMI, normal ENT inspection, TMs normal Neck: non-tender, full range of motion, normal inspection, trachea midline Cardiovascular/Chest: normal peripheral pulses, no edema, no gallop, tachycardia Respiratory: chest non-tender, lungs clear, normal breath sounds, no respiratory distress Extremity: normal range of motion, non-tender 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 Copy, Patient Portal Self Enrollment Referrals: Jamison Malin MD [Primary Care Provider] - 1-2 Weeks Home Medications: Ambulatory Orders Aspirin [Baby Aspirin] 81 mg PO QD 08/09/15 Fiber [Fiber Formula] 1 cap PO TID 08/09/15 Fluticasone Furoate [Veramyst] 50 mcg NA BEDTIME 08/09/15 Gabapentin [Neurontin] 400 mg PO TID 08/09/15 Levothyroxine Sodium 75 mcg PO QAM 08/09/15 Simvastatin 20 mg PO BEDTIME 08/09/15 Tamsulosin HCl [Flomax] 0.4 mg PO BEDTIME 08/09/15 Finasteride 5 mg PO BEDTIME 08/10/16 Nu Remedy Plus 1 each PO BEDTIME 08/10/16 [place] Xl 1 each PO QID 08/10/16 Ascorbic Acid [Vitamin C 500 mg] 1,000 mg PO DAILY 03/29/20 Clopidogrel Bisulfate [Plavix] 75 mg PO QD 03/29/20 Levocetirizine Dihydrochloride [Levocetirizine Dihydrochl] 5 mg PO BEDTIME 03/29/20 Albuterol Sulfate Nebs [Proventil Nebs] 3 ml NEB QID PRN 08/01/20 Allopurinol 300 mg PO DAILY 08/01/20 HYDROcodone 5MG/APAP 325MG [[place] 5/325] 1 tablet PO Q4HR PRN 08/01/20 Ondansetron Odt [Zofran Odt] 4 mg PO Q8HR PRN #10 tab 08/01/20
--- NOTE | 2020-11-27 13:08 | RAD ---
XR CHEST 1 VIEW HISTORY: 85 years Male COVID COMPARISON: None. TECHNIQUE: Single AP view of the chest. FINDINGS: Lungs: Hazy attenuation in the lateral right lower lung compatible with airspace disease. Blunting of the right costophrenic angle may represent a small right pleural effusion. Coarse interstitial markings throughout the lungs appears similar. Heart/Mediastinum: Cardiac silhouette again appears mildly enlarged. Atherosclerotic changes are present in the thoracic aorta. Bones: No acute abnormality detected. IMPRESSION: Right lower lobe airspace disease consistent with reported history. Possible small right pleural effusion. Electronically signed by: Eddy Segundo MD 11/27/2020 1:06 PM [facility]
[2020-11-27] MEDS ORDERED: LACTATED RINGERS 1,000 ML IVS ONE (13:38)
[2020-11-27] MEDS ORDERED: cefTRIAXone SODIUM 2 GM in SODIUM CHL 0.9% 100ML MINI-BAG 100 ML IVPB ONE (13:39)
--- NOTE | 2020-11-27 14:47 | CT ---
EXAM DESCRIPTION: Chest w/o Contrast CLINICAL HISTORY: 85 years, Male, LUNG INFILTRATE VERSES MASS COMPARISON: May 25, 2020 CT examination, November 27, 2020 chest x-ray TECHNIQUE: Thin-section noncontrast axial CT images are obtained according to our protocol. Reconstructed MPR images are created and reviewed as well. This exam was performed according to our departmental dose-optimization program, which includes automated exposure control, adjustment of the mA and/or kV according to patient size and/or use of iterative reconstruction technique. FINDINGS: Advanced emphysematous bolus and fibrotic changes in both lungs have significantly involved since prior May examination. Greater degree of tenting of the right hemidiaphragm laterally and elevation of the right lung base noted. Permanent cardiac pacer from a left subclavian route is in place as well as a aortic valve replacement likely on a percutaneous basis. Heart size is within the limits of normal. On the right there is a new pleural-based 1 x 1.5 cm nodule in the posterior right lung base. Additionally a small spiculated nodule in the right lower lobe 1 cm in diameter is new from prior study. Early pleural and/or pulmonary metastatic disease should be considered. On the left partial but incomplete resolution of the left anterior chest wall mass superiorly is noted with adjacent bullous changes in the adjoining lung. Significant reduction in mass effect present. A small pleural-based 1 cm nodule posterior laterally in the left upper lung noted. There is new irregular consolidation with cavitation or a necrotic nodule approximately 1.5 x 3.5 cm at the anterior left lung base and chronic inflammatory or neoplastic disease should be considered. Additionally in the posterior left lung base a spiculated 2 cm nodule suspicious for neoplasm just below the inferior posterior aspect of the left hilum. IMPRESSION: 1. Marked if evolution of pulmonary changes in both lungs with significant resolution of the chest wall mass in the anterior left upper chest wall with underlying bullous changes in the adjacent lung. 2. New small pleural-based nodules both lungs without pleural effusion suspicious for pleural-based metastatic disease. 3. Small 1 cm nodule in the right lower lung field laterally and at least two areas of irregular density suspicious for spiculated primary neoplasms in the left lung one in the anterior lung base and one in the posterior lung base. 4. Significant hilar or mediastinal Central adenopathy is not apparent. Indwelling pacer with aortic valve replacement and extensive coronary calcification noted. 5. Advanced bullous and emphysematous disease throughout both lungs with increased tenting of the right hemidiaphragm laterally. 6. Old defect in right posterior rib, unchanged from prior study. Electronically signed by: Walter Peace MD 11/27/2020 2:46 PM [facility]
--- NOTE | 2020-11-27 15:50 | CT ---
EXAM DESCRIPTION: CTA Chest CLINICAL HISTORY: 85 years Male, R/O PE COMPARISON: 27 November 2020 TECHNIQUE: Transaxial images were obtained with intravenous contrast media. Sagittal and coronal reconstruction was performed. No 3-D reconstruction was performed.This exam was performed according to our departmental dose-optimization program, which includes automated exposure control, adjustment of the mA and/or kV according to patient size and/or use of iterative reconstruction technique. FINDINGS: The thyroid is normal in appearance. A pacemaker is seen in place. No evidence for pulmonary embolus is detected. No pleural fluid is seen. No adrenal masses are detected. Bullous emphysema is observed bilaterally. Fibrotic changes are observed in the right lower lobe. Pleural-based plaque is observed on the left. IMPRESSION: 1. No evidence of pulmonary embolus seen. 2. Advanced bullous emphysema is observed unchanged from the previous exam. Electronically signed by: Renato Russo MD 11/27/2020 3:48 PM [facility]
[2020-11-27] MEDS ORDERED: ACETAMINOPHEN 325 MG TAB PO ONE (15:51)
--- NOTE | 2020-11-27 17:03 | HP ---
SUPERVISING PHYSICIAN: Walter Morales M.D. CHIEF COMPLAINT: General malaise. HISTORY OF PRESENT ILLNESS: This is an 85 year-old male patient who has lung cancer and currently on chemotherapy for this. Apparently somehow the nurse saw him today and thought that he did not look good, so they sent him to the Emergency Room. They actually sent him for a COVID test which was negative. He was tachycardic in the Emergency Room with a low-grade fever. CT scan of the chest was done as well as chest x-ray. There was noted on the CT scan of the chest that he had significant resolution of the chest wall mass in the anterior left upper chest, with underlying bullous changes adjacent to the lung. However, there was a concern for a 1.5 x 3.5 anterior left lung base area that could be inflammatory/infectious process. He did have an elevated D-dimer and therefore he went back and had another CAT scan but it was negative for PE. Due to his tachycardia in the 120s, he was referred for admission. At time of examination, the patient is quite [id number], but alert and does not complain of any significant shortness of breath at this point. PAST MEDICAL HISTORY: 1. Lung cancer currently on chemotherapy and he has finished radiation. 2. Prior C-Diff colitis infection. 3. Coronary artery disease. 4. Hypertension. 5. Hyperlipidemia. 6. Hypothyroidism. 7. Gout. PAST SURGICAL HISTORY: 1. Right total knee arthroplasty. 2. Bilateral rotator cuff surgery. 3. Back surgery. 4. Hemorrhoidectomy. 5. Aortic valve replacement. 6. Pacemaker. CURRENT MEDICATIONS: Please see Med. Rec. list once verified in the computer. ALLERGIES: MORPHINE. FAMILY HISTORY: Reviewed and noncontributory. SOCIAL HISTORY: He quit smoking in 1995. No alcohol and no illicit drugs. REVIEW OF SYSTEMS: CONSTITUTIONAL: Positive for fever, chills and fatigue. No weight loss or weight gain. HEENT: No headaches, vision changes, ear pain, nasal congestion or throat pain. RESPIRATORY: Positive for cough and shortness of breath. No hemoptysis or pleuritic chest pain. CARDIOVASCULAR: No chest pain, palpitations or peripheral edema. GASTROINTESTINAL: No nausea, vomiting, diarrhea, constipation or abdominal pain. GENITOURINARY: No dysuria, frequency or flank pain. SKIN: No rashes or wounds, but he does have an area on the right forearm in the anterior aspect of the right upper arm which is a cyst that he says is going to be removed this week. NEUROLOGIC: No headaches, syncope, paresthesias or seizures. PHYSICAL EXAMINATION: VITAL SIGNS: Blood pressure 121/80, heart rate 93, respiratory rate 16, temperature 98.4, oxygen saturation 98%. GENERAL: Mr. Mcdaniel is an 85 year-old male patient who is in no active distress currently. NEUROLOGIC: The patient is alert but very [id number]. LUNGS: Pretty diminished bilaterally. I do not appreciate any wheezing or rhonchi. CARDIOVASCULAR: Regular rate and rhythm currently which is sinus per the personnel monitor. ABDOMEN: Soft. Positive bowel sounds. EXTREMITIES: Lower extremities with no edema, 2+ pulses. Capillary refill is less than 2 seconds. LABORATORY: As stated before, D-dimer is 3510, hemoglobin 12.8, hematocrit 39.1. White blood cell count 7.7, but he does have 81.9% left shift neutrophils. Chemistry is unremarkable. Lactic acid initially was 2.5 which improved to 1.3. Troponin 0.09 which improved to 0.08. No complaints of chest pain. CRP was 11.6, BNP 973. Chest x-ray and CT scans were reviewed. The chest x-ray showed right lower lobe airspace disease and small right pleural effusion. CT of the chest showed marked evolution of pulmonary changes in both lungs with significant resolution of the chest wall mass in the anterior left upper chest wall with underlying bullous changes in the adjacent lung as well as a few small pleural based nodules in both lungs without pleural effusion suspicious for pleural based metastatic disease. Small 1 cm nodule in the right lower lung field laterally and at least 2 areas of irregular density suspicious for spiculated primary neoplasms in the left lung, one in the anterior lung base and one in the posterior lung base. No significant hilar or mediastinal adenopathy. He did have advanced bullous and emphysematous changes throughout both lungs. CTA of the chest was negative for pulmonary embolism. No other acute changes. ASSESSMENT: 1. Left lower lobe pneumonia. 2. Chronic obstructive pulmonary disease with no exacerbation. 3. Lung cancer on chemotherapy. 4. Neck pain. 5. History of coronary artery disease with no evidence of acute myocardial infarction at this time. 6. Hypertension. PLAN: The patient will be admitted and placed on Levaquin and nebulizer therapies. No need for any kind of steroids at this time due to lack of wheezing. No evidence of exacerbation. Will place him on DVT and GI prophylaxis. Bronchial hygiene has been ordered as well. I am going to go ahead and x-ray his neck in the morning. He states for the last 3 weeks or so he has had some neck pain. He is actually wearing a neck brace as he says it takes some of the strain off of his neck. He has not had any imaging yet, so will start with x-rays. Resume his home medications one they are verified in the computer. Recheck chest x-ray and labs tomorrow as well. #[id number] [facility]
[2020-11-27] MEDS ORDERED: SODIUM CHLORIDE 0.9% (FLUSH) 10 ML SYG IV PRN (19:09)
[2020-11-27] MEDS ORDERED: HYDROcodone 5MG/APAP 325MG 1 EA TAB PO PRN (19:10)
[2020-11-27] MEDS ORDERED: CLOPIDOGREL 75 MG TAB PO SCH (19:30)
[2020-11-27] MEDS ORDERED: levoFLOXacin 750MG IV 750 MG in PREMIX BAG 1 BAG IVPB SCH (19:30)
[2020-11-27] MEDS ORDERED: IV SET AND CAP CHANGE INJ INJ SCH (19:30)
[2020-11-27] MEDS ORDERED: ASPIRIN (CHEWABLE) 81 MG TAB PO SCH (19:30)
[2020-11-27] MEDS ORDERED: ENOXAPARIN SODIUM 40 MG/0.4 ML SYG SUBCU SCH (19:30)
[2020-11-27] MEDS ORDERED: GABAPENTIN 400 MG CAP ONE (19:47)
[2020-11-27] MEDS: GABAPENTIN 300 MG CAP PO SCH (20:02)
[2020-11-27] MEDS ORDERED: OMEGA PO SCH (21:00)
[2020-11-27] MEDS ORDERED: [UNRECOGNIZED DRUG - OTHER] PO SCH (21:00)
[2020-11-27] MEDS ORDERED: TAMSULOSIN 0.4 MG CAP PO SCH (21:00)
[2020-11-27] MEDS ORDERED: FLUTICASONE FUROATE 50 MCG SCH (21:00)
[2020-11-27] MEDS ORDERED: NON-FORMULARY MEDICATION 1 EA MIS (Levocetirizine Dihydrochloride [Levocetirizine Dihydroc PO SCH (21:00)
[2020-11-27] MEDS ORDERED: FINASTERIDE 5 MG TAB PO SCH (21:00)
[2020-11-27] MEDS ORDERED: SIMVASTATIN 20 MG TAB PO SCH (21:00)
[2020-11-27] MEDS: IPRATROPIUM/ALBUTEROL 3 ML VIAL NEB SCH (22:00)
[2020-11-27] MEDS ORDERED: CALCIUM CARBONATE (ANTACID) 500 MG CHEWABLE TAB PO PRN (22:09)
[2020-11-28] MEDS ORDERED: ACETAMINOPHEN 325 MG TAB PO PRN (04:40)
[2020-11-28] MEDS ORDERED: PANTOPRAZOLE SODIUM IV 40 MG VIAL IV SCH (06:30)
--- NOTE | 2020-11-28 07:54 | RAD ---
EXAM DESCRIPTION: Chest,2 Views CLINICAL HISTORY: Pneumonia COMPARISON: November 27, 2020 FINDINGS: Two-view chest x-ray shows mild enlargement of the cardiac silhouette without pulmonary vascular congestion. Left subclavian dual-lead transvenous cardiac pacemaker and right subclavian Mediport are stable.. Aortic valve stent is again seen. The lungs are normally aerated. Peripheral interstitial infiltrates throughout the lungs are similar to slightly increased from previous.. Costophrenic angles are sharp. Moderate disc degenerative changes of the spine are seen. IMPRESSION: Mild interval worsening of bilateral pulmonary infiltrates compatible with pneumonia Electronically signed by: Rusty Weldon MD 11/28/2020 7:52 AM [employer] OFFICER
--- NOTE | 2020-11-28 07:56 | RAD ---
EXAM: Cervical Spine Radiography COMPARISON: None. INDICATION: MAIN neck pain TECHNIQUE: 3 views of the cervical spine. FINDINGS: Odontoid appears intact on the open-mouth view. The lateral masses are in normal anatomic alignment. C1 through C6 are well visualized. C7 is partially visualized. No evidence of acute fracture. Mild loss of normal cervical lordosis may be positional or due to muscular strain or spasm. There is 2 mm anterolisthesis C3 on C4 and C4 on C5. Disc space height loss is greatest at C6-C7. No suspicious osseous lesions. The prevertebral soft tissues are unremarkable. The visualized lung isaacs are unremarkable. A right chest port and left chest pacemaker are noted. Aortic atherosclerosis is present. IMPRESSION: 1. No acute fracture. 2. Chronic-appearing 2 mm anterolisthesis C3 on C4 and C4 on C5. 3. Mild loss of normal cervical lordosis may be positional or due to muscular strain or spasm. 4. Cervical spondylosis. Electronically signed by: Valdez Rodriguez MD 11/28/2020 7:54 AM [facility]
[2020-11-28] MEDS: IPRATROPIUM/ALBUTEROL 3 ML VIAL NEB SCH (08:33)
[2020-11-28 08:38] VITALS: TEMP 98.2
[2020-11-28] MEDS: GABAPENTIN 300 MG CAP PO SCH (08:54)
[2020-11-28] MEDS ORDERED: ALLOPURINOL 300 MG TAB PO SCH (09:00)
[2020-11-28] MEDS ORDERED: LEVOTHYROXINE SODIUM 75 MCG PO SCH (09:00)
[2020-11-28] MEDS ORDERED: ASCORBIC ACID 500 MG TAB PO SCH (09:00)
[2020-11-28] MEDS ORDERED: FLUTICASONE PROP 0.05% NASAL 16 GM BTTL BNAS SCH (10:00)
[2020-11-28 12:17] VITALS: BP 110/81
[2020-11-28 17:09] VITALS: O2SAT 95
[2020-11-28] MEDS ORDERED: BIFIDOBACTERIUM INFANTIS 4 MG CAP PO SCH (21:00)
[2020-11-28] MEDS ORDERED: guaiFENesin ER TAB 600 MG TAB PO SCH (21:00)
[2020-11-28] MEDS ORDERED: LORATADINE 10 MG TAB PO SCH (21:00)
[2020-11-29] MEDS ORDERED: LEVOTHYROXINE SODIUM 0.075 MG TAB PO SCH (10:00)
--- NOTE | 2020-11-29 11:30 | DS ---
SUPERVISING PHYSICIAN: Walter Morales MD DISCHARGE DIAGNOSIS: 1. Left lower lobe pneumonia. 2. Chronic obstructive pulmonary disease with no exacerbation. 3. Lung cancer on chemotherapy. 4. Neck pain. 5. History of coronary artery disease with no evidence of acute myocardial infarction. 6. Hypertension. HISTORY OF PRESENT ILLNESS: This is an 85-year-old male patient who has lung cancer and currently on chemotherapy for this. His nurse saw him on the date of admission and thought that he did not look good, so they sent him to the Emergency Room. They set him up for a COVID test which was negative. He was tachycardic in the Emergency Room with a low-grade fever. CT scan of the chest was done as well as chest x-ray. There was noted on the CT scan of the chest that he had significant resolution of the chest wall mass in the anterior left upper chest, with underlying bullous changes adjacent to the lung. However, there was a concern for a 1.5 x 3.5 cm anterior left lung base area that could be inflammatory/infectious process. He did have an elevated D-dimer and therefore he went back and had another CAT scan but it was negative for PE. Due to his tachycardia, he was referred for admission. At time of admission, had no complaints of shortness of breath, chest pain, nausea or vomiting. HOSPITAL COURSE: The patient was admitted and placed on Levaquin as well as nebulizers. He was placed on DVT and GI prophylaxis. He also had aggressive pulmonary hygiene. His neck was x-rayed due to the complaints of neck pain. His home medications were resumed. Overnight, the patient had no problems. His vital signs remained stable with O2 saturation 94%. He does have oxygen, but he uses oxygen at home. Labs have been stable. He will be discharged home today in stable condition. LABORATORY: WBCs on admission were 7.7 and today 5.9. Yesterday, he had a left shift on his differential. Today, that has normalized. Hemoglobin 10.5, hematocrit 32.5. D-dimer on admission was 3,510. Electrolytes are within normal limits with the exception of his chloride is low at 100 and calcium low at 8.3. Initially, he did have an elevated lipase of 2.5 and after fluids it came to 1.3. Troponin 0.08. C-reactive protein. 11.6 BNP 973. Urinalysis was unremarkable. RADIOLOGY: Cervical spine x-rays shows no acute fracture, chronic appearing 2 mm anterolisthesis, C3 on C4 and C4 on C5. Mild loss of normal cervical lordosis, may be positional or due to muscular strain or spasm. Cervical spondylosis. His chest CTA was negative for pulmonary embolism. His chest x- ray this morning shows mild interval worsening of bilateral pulmonary infiltrates compatible with pneumonia. DISCHARGE PLAN: The patient expressed his wishes to go home and he felt much better. He no longer complained of weakness. He will be discharged home with [facility]. He is in stable condition. He is to resume his previous diet and increase his activity as tolerated. He is to followup with his primary care physician, Dr. Malin in the next 1 to 2 weeks. In addition to his routine home medications, he is to have Levaquin for 5 additional days. He is to return to the hospital or followup with Dr. Malin for any problems or complications. DISCHARGE MEDICATIONS: 1. Aspirin. 2. Levothyroxine. 3. Flomax. 4. Simvastatin. 5. Gabapentin. 6. Veramyst. 7. Finasteride. 8. [place] XL. 9. Nu Remedy. 10. Levocetirizine. 11. Plavix. 12. Vitamin C. 13. Hydrocodone. 14. Albuterol. 15. Allopurinol. 16. Align. 17. Levaquin. 18. Guaifenesin. #[id number] [facility]
== END 2020-11-28 13:50 | disposition home health service (06) ==
LOC: ER 12:07 → MS 17:02
PROVIDERS: ADMIT Nurse Practitioner; ATTEND Nurse Practitioner Acute Care
DX: J18.9 Pneumonia, unspecified organism (principal); J44.9 Chronic obstructive pulmonary disease, unspecified; C34.90 Malignant neoplasm of unspecified part of unspecified bronchus or lung; M47.812 Spondylosis without myelopathy or radiculopathy, cervical region; I25.10 Atherosclerotic heart disease of native coronary artery without angina pectoris; I10 Essential (primary) hypertension; E87.8 Other disorders of electrolyte and fluid balance, not elsewhere classified; E83.51 Hypocalcemia; I45.2 Bifascicular block; E78.5 Hyperlipidemia, unspecified; E03.9 Hypothyroidism, unspecified; M10.9 Gout, unspecified; Z20.822 Contact with and (suspected) exposure to COVID-19; Z92.21 Personal history of antineoplastic chemotherapy; Z92.3 Personal history of irradiation; Z79.02 Long term (current) use of antithrombotics/antiplatelets; Z79.82 Long term (current) use of aspirin; Z79.899 Other long term (current) drug therapy; Z88.6 Allergy status to analgesic agent; Z95.2 Presence of prosthetic heart valve; Z95.0 Presence of cardiac pacemaker; Z95.5 Presence of coronary angioplasty implant and graft; Z96.651 Presence of right artificial knee joint; Z87.891 Personal history of nicotine dependence
CPT/HCPCS: 96365; 96375 ×2; 96372; J0696; J1650 ×2; J7620 ×3; J1956; J7050; J7120; 85379; 80048; 80053; 36415 ×3; 81001; 86140; 85025 ×2; 87040 ×2; 85730; 85610; 84484 ×2; 83880; 83605 ×2; 71045; 71046; 72040; 71250; 71275; 94640 ×3; 94762; 99285; 93005; G0378; 87502; 87635

== ENCOUNTER 2020-11-29 17:31 | Emergency (ER) | payer OTHER ==
--- NOTE | 2020-11-29 18:43 | CT ---
EXAM: Cervical Spine CLINICAL INDICATION: Trauma, patient fell, pain COMPARISON: There is no previous study for comparison. TECHNIQUE: CT scan of the cervical spine was done using contiguous axial 3mm sections through the cervical spine with sagittal and coronal reconstructions. This exam was performed according to our departmental dose-optimization program, which includes automated exposure control, adjustment of the mA and/or kV according to patient size and/or use of iterative reconstruction technique. Findings: There is a lytic lesion within the right lateral mass of the C2 vertebra measuring up to 1.8 x 1.9 cm. There is pathologic fracture through the lytic lesion, see series 3, image 23 and 24. No other fracture or subluxation is identified in the cervical spine. Moderate multilevel degenerative changes are seen in the cervical spine. At C2-C3, there is a diffuse disc bulge and uncovertebral osteophytes leading to moderate left neural foramen narrowing, the central canal and right neural foramen are patent. At C3-C4 there is a diffuse disc bulge, facet arthropathy and uncovertebral osteophytes leading to severe left neural foramen narrowing, the central canal and right neural foramen are patent. At C4-C5 there is a diffuse disc bulge, uncovertebral osteophyte and facet arthropathy leading to severe bilateral neural foramen narrowing with no central stenosis. At C5-C6 there is a diffuse disc bulge, uncovertebral osteophytes and facet arthropathy leading to moderate central canal stenosis with severe bilateral neural foramen narrowing. At C6-C7 there is a diffuse disc bulge, uncovertebral osteophytes and facet arthropathy leading to moderate central canal stenosis and severe bilateral neural foramen narrowing. IMPRESSION: 1. Lytic lesion within the right aspect of the C2 vertebra with associated nondisplaced pathologic fracture. Follow-up MRI of the cervical spine is recommended. 2. Multilevel degenerative changes as described in detail above. No other acute process is identified. I telephoned these findings to Dr. Pandya at 6:41 PM central time on 11/29/2020. Electronically signed by: Meño Quiroz MD 11/29/2020 6:41 PM [facility]
--- NOTE | 2020-11-29 19:04 | ED.PDOC ---
History of Present Illness - General Chief Complaint: Trauma Stated Complaint: fall, worsened neck pain Time Seen by Provider: 11/29/20 17:43 Source: patient, family Exam Limitations: no limitations - History of Present Illness Occurred: just prior to arrival Severity: moderate Pain Location: neck Method of Injury: fall Improving Factors: nothing Worsening Factors: nothing Loss of Consciousness: no loss of consciousness Associated Symptoms (Fall): neck pain Allergies/Adverse Reactions: Allergies Morphine Allergy (Verified 11/27/20 12:37) Zolpidem [From Ambien] Adverse Reaction (Verified 11/29/20 10:55) adhesive tape Allergy (Uncoded 11/29/20 10:55) Home Medications: Ambulatory Orders Aspirin [Baby Aspirin] 81 mg PO QD 08/09/15 Fluticasone Furoate [Veramyst] 50 mcg NA BEDTIME 08/09/15 Gabapentin [Neurontin] 400 mg PO TID 08/09/15 Levothyroxine Sodium 75 mcg PO QAM 08/09/15 Simvastatin 20 mg PO BEDTIME 08/09/15 Tamsulosin HCl [Flomax] 0.4 mg PO BEDTIME 08/09/15 Finasteride 5 mg PO BEDTIME 08/10/16 Nu Remedy Plus 1 each PO BEDTIME 08/10/16 [place] Xl 1 each PO QID 08/10/16 Ascorbic Acid [Vitamin C 500 mg] 1,000 mg PO DAILY 03/29/20 Clopidogrel Bisulfate [Plavix] 75 mg PO QD 03/29/20 Levocetirizine Dihydrochloride [Levocetirizine Dihydrochl] 5 mg PO BEDTIME 03/29/20 Albuterol Sulfate Nebs [Proventil Nebs] 3 ml NEB QID PRN 08/01/20 Allopurinol 300 mg PO DAILY 08/01/20 HYDROcodone 5MG/APAP 325MG [[place] 5/325] 1 tablet PO Q6HR PRN 08/01/20 Bifidobacterium Infantis [Align] 4 mg PO BID cap 11/28/20 guaiFENesin ER TAB [Mucinex Tab] 600 mg PO BID tab 11/28/20 levoFLOXacin [Levaquin] 500 mg PO DAILY #5 tab 11/28/20 Bisacodyl [Dulcolax] 5 mg PO DAILY 11/29/20 Fiber [Fiber Formula] 3 cap PO DAILY 11/29/20 Review of Systems - Review of Systems Constitutional: Denies: chills, fever EENTM: States: other - neck pain . Denies: tearing, nose pain, nose congestion Respiratory: Denies: cough, stridor Cardiology: Denies: chest pain, palpitations, syncope Gastrointestinal/Abdominal: Denies: abdominal pain, diarrhea, nausea Genitourinary: Denies: discharge, frequency, hematuria Musculoskeletal: Denies: back pain, gout, muscle pain, muscle stiffness Skin: Denies: change in color, dryness, lesions Neurological: Denies: anxiety, depressed, headache, numbness, paresthesia, tingling, tremors, weakness Endocrine: Denies: excessive sweating, flushing Hematologic/Lymphatic: Denies: anemia, easy bruising Past Medical History (General) - Patient Medical History Hx Seizures: No Hx Stroke: No Hx Dementia: No Hx Asthma: No Hx of COPD: Yes Hx Cardiac Disorders: No Hx Congestive Heart Failure: No Hx Pacemaker: Yes - 2018 Hx Hypertension: Yes Hx Thyroid Disease: No Hx Diabetes: No Hx Gastroesophageal Reflux: Yes Hx Renal Disease: No Hx Cancer: Yes - lung cancer Hx of HIV: No Hx Hepatitis C: No Hx MRSA: No - Vaccination History Hx Tetanus, Diphtheria Vaccination: Yes - unknown date Hx Influenza Vaccination: Yes - 2017 Hx Pneumococcal Vaccination: Yes - 2017 - Social History Hx Tobacco Use: No Hx Alcohol Use: No Hx Substance Use: No Hx Physical Abuse: No Hx Emotional Abuse: No Family Medical History - Family History Father Family History: No Known Living Status: Cause of : Old age Physical Exam - Physical Exam General Appearance: Alert, Comfortable Head Injury: no evidence of injury Eye Exam: bilateral normal ENT Exam: hearing grossly normal, no evidence of ENT injury, no dental injury Neck Exam: normal alignment, spinous processes tender, tenderness, tender midline Cardiovascular/Respiratory: regular rate, rhythm, normal peripheral pulses, no JVD, normal breath sounds Gastrointestinal/Abdominal: normal bowel sounds, non tender, soft, no organomegaly, no pulsatile mass Genitalia: normal genital exam, normal rectal exam Back Exam: normal inspection, no CVA tenderness, no vertebral tenderness Extremity Exam: no evidence of injury, normal range of motion, non-tender 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 Had prior injury neck x-ray that was normal. States his pain is really bad and cannot move his neck from side to side. CT of the neck showedA lytic lesion and a fracture as described on CT report. Radiologist recommends outpatient follow-up with MRI. C Collar in place . No neurological deficits. Educated on the importance of outpatient follow-up he verbalized understanding 11/29/20 19:00 11/29/20 19:05 E - EKG/XRAY/CT CT Ordered: Yes CT Interpretation Call Back: Yes - XAM: Cervical Spine CLINICAL INDICATION: Trauma, patient fell, pain AJITH - Additional EKG/XRAY/Consults Comments: XAM: Cervical Spine CLINICAL INDICATION: Trauma, patient fell, pain AJITH Departure - Departure Clinical Impression: Cervical vertebral fracture, Lytic lesion of bone on x-ray Disposition: Discharge to Home or Self Care Condition: Fair Departure Forms: ED Discharge - Pt. Copy, Patient Portal Self Enrollment Instructions: DI for Trauma Referrals: Jamison Malin MD [Primary Care Provider] - 1-2 Weeks Home Medications: Ambulatory Orders Aspirin [Baby Aspirin] 81 mg PO QD 08/09/15 Fluticasone Furoate [Veramyst] 50 mcg NA BEDTIME 08/09/15 Gabapentin [Neurontin] 400 mg PO TID 08/09/15 Levothyroxine Sodium 75 mcg PO QAM 08/09/15 Simvastatin 20 mg PO BEDTIME 08/09/15 Tamsulosin HCl [Flomax] 0.4 mg PO BEDTIME 08/09/15 Finasteride 5 mg PO BEDTIME 08/10/16 Nu Remedy Plus 1 each PO BEDTIME 08/10/16 [place] Xl 1 each PO QID 08/10/16 Ascorbic Acid [Vitamin C 500 mg] 1,000 mg PO DAILY 03/29/20 Clopidogrel Bisulfate [Plavix] 75 mg PO QD 03/29/20 Levocetirizine Dihydrochloride [Levocetirizine Dihydrochl] 5 mg PO BEDTIME 03/29/20 Albuterol Sulfate Nebs [Proventil Nebs] 3 ml NEB QID PRN 08/01/20 Allopurinol 300 mg PO DAILY 08/01/20 HYDROcodone 5MG/APAP 325MG [[place] 5/325] 1 tablet PO Q6HR PRN 08/01/20 Bifidobacterium Infantis [Align] 4 mg PO BID cap 11/28/20 guaiFENesin ER TAB [Mucinex Tab] 600 mg PO BID tab 11/28/20 levoFLOXacin [Levaquin] 500 mg PO DAILY #5 tab 11/28/20 Bisacodyl [Dulcolax] 5 mg PO DAILY 11/29/20 Fiber [Fiber Formula] 3 cap PO DAILY 11/29/20 Additional Instructions: -Please follow-up with a spine surgeon 1 to 2 days with referral given to you in the emergency department today -As discussed in the ED need an outpatient MRI for follow-up of your lytic lesion in your cervical spine. -Continue pain regimen at home. -Return to the emergency department as needed. -Return to Ed as needed -keep C Collar in place until cleared by spine surgeon [facility] [address] [facility], [address] Telephone [phone]
[2020-11-29] MEDS ORDERED: cloNIDine HCL 0.1 MG TAB PO ONE (19:57)
[2020-11-29] MEDS ORDERED: hydrALAZINE HCl 20 MG/ML VIAL IV ONE (19:58)
[2020-11-29 20:48] VITALS: BP 136/92; O2SAT 97
[2020-11-29 20:50] VITALS: TEMP 97.2
== END 2020-11-29 20:50 | disposition home or self-care (01) ==
LOC: ER 17:31
DX: M84.48XA Pathological fracture, other site, initial encounter for fracture (principal); M89.9 Disorder of bone, unspecified; M54.2 Cervicalgia; M47.812 Spondylosis without myelopathy or radiculopathy, cervical region; J44.9 Chronic obstructive pulmonary disease, unspecified; I10 Essential (primary) hypertension; K21.9 Gastro-esophageal reflux disease without esophagitis; Z85.118 Personal history of other malignant neoplasm of bronchus and lung; Z95.0 Presence of cardiac pacemaker; Z79.02 Long term (current) use of antithrombotics/antiplatelets; Z79.899 Other long term (current) drug therapy; Z79.82 Long term (current) use of aspirin; Z88.5 Allergy status to narcotic agent; Z88.8 Allergy status to other drugs, medicaments and biological substances
CPT/HCPCS: 72125; J0360

== ENCOUNTER 2020-12-11 18:40 | Inpatient (IN) | payer OTHER ==
[2020-12-11] MEDS ORDERED: SODIUM CHLORIDE 0.9% (FLUSH) 10 ML SYG IV PRN ×2 (18:51→21:52)
[2020-12-11] MEDS ORDERED: cefTRIAXone SODIUM 2 GM in SODIUM CHL 0.9% 100ML MINI-BAG 100 ML IVPB ONE (18:51)
[2020-12-11] MEDS ORDERED: SODIUM CHLORIDE 0.9% 1000ML 1,000 ML IVS ONE (18:51)
--- NOTE | 2020-12-11 18:57 | ED.PDOC ---
History of Present Illness - General Chief Complaint: Neuro Symptoms/Deficits Stated Complaint: AMS Time Seen by Provider: 12/11/20 18:44 Source: patient, RN notes reviewed, Vital Signs reviewed, EMS notes reviewed, old records Exam Limitations: no limitations - History of Present Illness Initial Comments: Pt is a 85 yo male with PMH of COPD, lung CA on home oxygen that presents by EMS for altered mental status x 1 day. Per EMS, pt has been confused at home since noon today. He fell 10 days ago and has been wearing a soft C collar since that time. Pt is able to tell me his name and where he is, but states the year is [birth year]. He denies fever, SOB, PISANO, cough or any pain. Allergies/Adverse Reactions: Allergies Morphine Allergy (Verified 12/11/20 22:21) Zolpidem [From Ambien] Adverse Reaction (Verified 12/11/20 22:21) adhesive tape Allergy (Uncoded 12/11/20 18:51) Home Medications: Ambulatory Orders Aspirin [Baby Aspirin] 81 mg PO QD 08/09/15 Fluticasone Furoate [Veramyst] 50 mcg NA BEDTIME 08/09/15 Gabapentin [Neurontin] 400 mg PO TID 08/09/15 Levothyroxine Sodium 75 mcg PO 0700 08/09/15 Simvastatin 20 mg PO BEDTIME 08/09/15 Tamsulosin HCl [Flomax] 0.4 mg PO BEDTIME 08/09/15 Finasteride 5 mg PO BEDTIME 08/10/16 Nu Remedy Plus 1 each PO BEDTIME 08/10/16 [place] Xl 1 each PO QID 08/10/16 Ascorbic Acid [Vitamin C 500 mg] 1,000 mg PO DAILY 03/29/20 Clopidogrel Bisulfate [Plavix] 75 mg PO QD 03/29/20 Levocetirizine Dihydrochloride [Levocetirizine Dihydrochl] 5 mg PO BEDTIME 03/29/20 Albuterol Sulfate Nebs [Proventil Nebs] 3 ml NEB BID PRN 08/01/20 Allopurinol 300 mg PO DAILY 08/01/20 HYDROcodone 5MG/APAP 325MG [[place] 5/325] 1 tablet PO Q4HR PRN 08/01/20 Bifidobacterium Infantis [Align] 4 mg PO BID cap 11/28/20 guaiFENesin ER TAB [Mucinex Tab] 600 mg PO BID tab 11/28/20 Bisacodyl [Dulcolax] 5 mg PO DAILY 11/29/20 Fiber [Fiber Formula] 3 cap PO DAILY 11/29/20 Review of Systems - Review of Systems Constitutional: Denies: chills, fever EENTM: Denies: nose congestion, throat pain Respiratory: Denies: cough, short of breath Cardiology: Denies: chest pain, palpitations, syncope Gastrointestinal/Abdominal: Denies: abdominal pain, diarrhea, nausea, vomiting Genitourinary: States: no symptoms reported Musculoskeletal: Denies: back pain Skin: Denies: rash Neurological: Denies: headache, paresthesia All other Systems: Reviewed and Negative Past Medical History (General) - Patient Medical History Hx Seizures: No Hx Stroke: No Hx Dementia: No Hx Asthma: No Hx of COPD: Yes Hx Cardiac Disorders: No Hx Congestive Heart Failure: No Hx Pacemaker: Yes - 2018 Hx Hypertension: Yes Hx Thyroid Disease: No Hx Diabetes: No Hx Gastroesophageal Reflux: Yes Hx Renal Disease: No Hx Cancer: Yes - lung cancer Hx of HIV: No Hx Hepatitis C: No Hx MRSA: No - Vaccination History Hx Tetanus, Diphtheria Vaccination: Yes - unknown date Hx Influenza Vaccination: Yes - 2017 Hx Pneumococcal Vaccination: Yes - 2017 - Social History Hx Tobacco Use: No Hx Alcohol Use: No Hx Substance Use: No Hx Physical Abuse: No Hx Emotional Abuse: No Family Medical History - Family History Father Family History: No Known Living Status: Cause of : Old age Physical Exam - Physical Exam General Appearance: Alert, Comfortable, No apparent distress, Other - Lying on gurney in no distress Eye Exam: bilateral normal - PERRL Neck: other - soft collar in place Respiratory: chest non-tender, lungs clear, normal breath sounds, no respiratory distress Cardiovascular/Chest: regular rate, rhythm, no edema, no murmur Gastrointestinal/Abdominal: non tender, soft, no pulsatile mass Back Exam: no CVA tenderness, no vertebral tenderness Extremity: normal range of motion, non-tender, normal inspection Neurologic: other - alert, oriented x2. Answers questions appropriately. CN intact Skin Exam: normal color, warm/dry Progress - Progress Progress: 12/11/20 19:34 now at bedside and provides additional history. She states he was at his baseline this morning, then took a nap after lunch and when he awoke he seemed "out of it." She states that his arms would occasionally twitch and seemed for fatigued that usual. She thinks he is much better know and more conversational in ED. 12/11/20 20:33 Pt presents with decreased LOC. Found to have leukocytosis and pneumonia. Troponin is chronically elevated and at his baseline today. Lactic normal and CT brain unremarkable. Will plan to admit for pneumonia given recent diagnosis of pneumonia and no improvement on outpt antibiotics and continued evaluation. SRP given. I have d/w hospitalist, Michell, will admit. - Results/Orders Results/Orders: EKG- ventricular paced rhythm, tachycardia, rate 105, wide QRS interval, nonspecific T wave abnormality CT BRAIN No acute process CHEST XRAY Stable mild bibasilar infiltrates, unchanged from previous on 11/28/20 12/11/20 18:51 IV Care:Saline Lock per Protoc QSHIFT Telemetry .ONCE Sodium Chloride 0.9% (Flush) [Saline Flush Syringe] 10 ml IV PRN PRN URINE CULTURE W/COLONY COUNT Stat EKG Stat Pulse Ox Stat URINALYSIS Stat 12/11/20 18:52 Pulse Oximetry Assessment DAILY 12/11/20 19:20 BLOOD CULTURE Stat Laboratory Results - last 24 hr 12/11/20 12/11/20 12/11/20 19:00 19:00 19:00 WBC 17.6 H RBC 4.10 L Hgb 10.7 L Hct 33.1 L MCV 80.6 MCH 26.1 L MCHC 32.3 L RDW 15.6 H Plt Count 282 MPV 6.7 L Absolute Neuts (auto) 15.50 H Absolute Lymphs (auto) 0.70 L Absolute Monos (auto) 1.30 H Absolute Eos (auto) 0.00 Absolute Basos (auto) 0.10 Neutrophils % 88.3 H Lymphocytes % 3.8 L Monocytes % 7.4 Eosinophils % 0.0 L Basophils % 0.5 PT 11.1 H INR 1.12 PTT (SP) 29.4 Sodium 136 Potassium 4.4 Chloride 101 Carbon Dioxide 26 Anion Gap 13.4 BUN 27 H Creatinine 1.21 BUN/Creatinine Ratio 22.3 H Random Glucose 143 H Serum Osmolality 279.5 Lactic Acid Calcium 8.4 Total Bilirubin 0.4 AST 14 ALT 10 Alkaline Phosphatase 52 Creatine Kinase 14 L CK-MB (CK-2) 0.6 CK-MB (CK-2) % Not Reportable Troponin I 0.09 H* Serum Total Protein 6.5 Albumin 2.6 L Globulin 3.9 H Albumin/Globulin Ratio 0.7 L 12/11/20 12/11/20 19:00 20:50 WBC RBC Hgb Hct MCV MCH MCHC RDW Plt Count MPV Absolute Neuts (auto) Absolute Lymphs (auto) Absolute Monos (auto) Absolute Eos (auto) Absolute Basos (auto) Neutrophils % Lymphocytes % Monocytes % Eosinophils % Basophils % PT INR PTT (SP) Sodium Potassium Chloride Carbon Dioxide Anion Gap BUN Creatinine BUN/Creatinine Ratio Random Glucose Serum Osmolality Lactic Acid 1.4 1.0 Calcium Total Bilirubin AST ALT Alkaline Phosphatase Creatine Kinase CK-MB (CK-2) CK-MB (CK-2) % Troponin I Serum Total Protein Albumin Globulin Albumin/Globulin Ratio Departure - Departure Clinical Impression: Pneumonia Qualifiers: Pneumonia type: due to unspecified organism Laterality: bilateral Lung location: lower lobe of lung Qualified Code(s): J18.9 - Pneumonia, unspecified organism Altered mental state Qualifiers: Altered mental status type: unspecified Qualified Code(s): R41.82 - Altered mental status, unspecified Leukocytosis, unspecified Qualifiers: Leukocytosis type: unspecified Qualified Code(s): D72.829 - Elevated white blood cell count, unspecified Time of Disposition: 20:33 Disposition: Admit Patient Activity: increase activity as tolerated Home Medications: Ambulatory Orders Aspirin [Baby Aspirin] 81 mg PO QD 08/09/15 Fluticasone Furoate [Veramyst] 50 mcg NA BEDTIME 08/09/15 Gabapentin [Neurontin] 400 mg PO TID 08/09/15 Levothyroxine Sodium 75 mcg PO 0700 08/09/15 Simvastatin 20 mg PO BEDTIME 08/09/15 Tamsulosin HCl [Flomax] 0.4 mg PO BEDTIME 08/09/15 Finasteride 5 mg PO BEDTIME 08/10/16 Nu Remedy Plus 1 each PO BEDTIME 08/10/16 [place] Xl 1 each PO QID 08/10/16 Ascorbic Acid [Vitamin C 500 mg] 1,000 mg PO DAILY 03/29/20 Clopidogrel Bisulfate [Plavix] 75 mg PO QD 03/29/20 Levocetirizine Dihydrochloride [Levocetirizine Dihydrochl] 5 mg PO BEDTIME 03/29/20 Albuterol Sulfate Nebs [Proventil Nebs] 3 ml NEB BID PRN 08/01/20 Allopurinol 300 mg PO DAILY 08/01/20 HYDROcodone 5MG/APAP 325MG [[place] 5/325] 1 tablet PO Q4HR PRN 08/01/20 Bifidobacterium Infantis [Align] 4 mg PO BID cap 11/28/20 guaiFENesin ER TAB [Mucinex Tab] 600 mg PO BID tab 11/28/20 Bisacodyl [Dulcolax] 5 mg PO DAILY 11/29/20 Fiber [Fiber Formula] 3 cap PO DAILY 11/29/20 Decision To Admit - Decistion To Admit Decision to Admit Date: 12/11/20 Decision to Admit Time: 20:32
--- NOTE | 2020-12-11 19:14 | RAD ---
EXAM: Chest,1 View CLINICAL INDICATION: Altered mental status COMPARISON: 11/28/2020 FINDINGS: A single view of the chest was obtained. The heart size is mildly enlarged. There is a left-sided pacemaker. There is a right subclavian port with its tip in the SVC. Mild infiltrates in both lung bases are stable from prior. The pulmonary vessels are unremarkable. There is no pneumothorax. IMPRESSION: Stable mild bibasilar infiltrates suggesting pneumonia. Mild cardiomegaly. Electronically signed by: Meño Quiroz MD 12/11/2020 7:13 PM [employer]
--- NOTE | 2020-12-11 19:37 | CT ---
EXAM: CT head CLINICAL INDICATION: Altered mental status COMPARISON: There is no previous study for comparison. TECHNIQUE: CT scan was done using contiguous axial 2.5 mm sections through the brain. This exam was performed according to our departmental dose-optimization program, which includes automated exposure control, adjustment of the mA and/or kV according to patient size and/or use of iterative reconstruction technique. FINDINGS: There is no midline shift, mass effect, or extraaxial fluid collection. There is no evidence of acute intracranial hemorrhage, mass lesion, or cerebral edema. Moderate diffuse atrophy and nonspecific chronic ischemic changes are identified. Bone window images reveal no evidence of a skull fracture. There is redemonstration of a partially visualized lytic lesion involving the right lateral mass of the C2 vertebra IMPRESSION: No evidence of an acute intracranial process. Electronically signed by: Meño Quiroz MD 12/11/2020 7:36 PM [facility]
[2020-12-11] MEDS ORDERED: CEFEPIME 2 GM in SODIUM CHL 0.9% 100ML MINI-BAG 100 ML IVPB ONE (20:31)
--- NOTE | 2020-12-11 21:26 | HP ---
SUPERVISING PHYSICIAN: Maurisio Rubin MD CHIEF COMPLAINT: Altered mental status and shortness of breath. HISTORY OF PRESENT ILLNESS: This is an 85-year-old male who has a past medical history of chronic obstructive pulmonary disease and lung cancer who presented to the Emergency Room due to altered mental status. It was reported that he had been confused since earlier in the day. He was wearing a C-collar and had fallen and had some neck pain from 11/29/20. There was a C2 lytic, nondisplaced fracture but were no other known injuries at that time. Initially, he was a very poor historian due to his mental status. His came in somewhat later and clarified some of his health history. She did report that his neuro status had improved in the ER. He was given some fluids and started on ceftriaxone in the Emergency Room. After coming to the Floor, he was changed to cefepime and Levaquin. In the ER, his heart rate was up to 108 and his respiratory rate was 24. His other vital signs were within normal limits. His labs showed WBC 17,600, hemoglobin 10.7, hematocrit 33.1. He had a left shift on differential. Electrolytes were basically within normal limits. Lactic acid was 1.4. Troponin was elevated at 0.09, but there were no complaints of chest pain. BUN 27, creatinine 1.21 and his baseline creatinine is usually 0.8. The patient was admitted to the hospital. PAST MEDICAL HISTORY: 1. Lung cancer. He has completed radiation and continues on chemotherapy. 2. Prior C. difficile infection. 3. Coronary artery disease. 4. Hypertension. 5. Hyperlipidemia. 6. Hypothyroidism. 7. Gout. PAST SURGICAL HISTORY: 1. Right total knee arthroplasty. 2. Bilateral rotator cuff surgery. 3. Back surgery. 4. Hemorrhoidectomy. 5. Aortic valve replacement. 6. Pacemaker. CURRENT MEDICATIONS: Per the EMR. ALLERGIES: MORPHINE. FAMILY HISTORY: Reviewed and noncontributory. SOCIAL HISTORY: He quit smoking in 1995. There is no history of ETOH or illicit drug use. REVIEW OF SYSTEMS: GENERAL: Positive for chills and fatigue. Negative for fever or weight loss. HEENT: Negative for ear pain, vision changes or sore throat. RESPIRATORY: Positive fro coughing and shortness of breath. Negative for wheezing. CARDIAC: Negative for chest pain, palpitations or tachycardia. GASTROINTESTINAL: Negative for nausea, vomiting, diarrhea, constipation. SKIN: Negative for lesions or rashes. NEUROLOGIC: Positive for altered mental status that has improved. Negative for headache or seizures. PHYSICAL EXAMINATION: VITAL SIGNS: Temperature 98.2, heart rate 96, blood pressure 93/59, respiratory rate 24, O2 saturation 100% on 2 liters nasal cannula. GENERAL: This is an 85-year-old male patient who is lying in his hospital bed. He is in no acute distress. HEENT: Normocephalic, atraumatic. Pupils are equal and reactive. Oropharynx is clear. NECK: Soft collar is present. He does move his neck without complaints of pain. RESPIRATORY: Diminished bilaterally with a few scattered rhonchi. He does get tachypneic with exertion. CHEST: There is equal rise and fall of the chest with inspiration and expiration. CARDIOVASCULAR: Regular rate and rhythm. GASTROINTESTINAL: Abdomen is soft, nondistended, nontender. Bowel sounds are positive. EXTREMITIES: No cyanosis, clubbing or edema. NEUROLOGIC: Awake, alert and oriented times three. He is very hard of hearing. Cranial nerves II-XII are grossly intact as tested. LABORATORY: Followup labs show electrolytes are basically within normal limits with exception of his calcium is 8.2. Creatinine is improved to 1.01. WBCs 13,400, hemoglobin 9.6, hematocrit 30.2. MICROBIOLOGY: Blood cultures pending. Urine culture pending. RADIOLOGY: Chest x-ray shows airspace opacities present throughout the right lung as well as the left lung base. Overall, no significant change from prior. Head CT shows no evidence of an acute intracranial process. All other labs and films have been reviewed via the EMR. IMPRESSION: 1. Sepsis related to bilateral pneumonia, most likely community acquires. Heart rate is 108, respiratory rate 24, WBCs 17,600. 2. Altered mental status, most likely secondary to #1, improved. 3. Acute renal insufficiency with baseline creatinine of 0.8. Admitting creatinine was 1.21, slowly improving. 4. Neck pain secondary to a recent fall on 11/29/20. He has a C2 lytic, nondisplaced fracture. There are no other know injuries. 5. Lung cancer. He has finished radiation. He continues on chemotherapy. 6. Hypertension. PLAN: The patient has been admitted to the hospital. He has been started on the pneumonia guidelines. He was COVID negative. We will continue on the cefepime and Levaquin. His mental status is mostly baseline, but we will continue to monitor that closely. He will have aggressive pulmonary hygiene including nebulizer both p.r.n. and scheduled. I ordered lab, chest x-ray for the morning. We will continue to monitor closely and follow as needed. #[id number] [facility]
[2020-12-11] MEDS ORDERED: ACETAMINOPHEN 325 MG TAB PO PRN (21:52)
[2020-12-11] MEDS ORDERED: SODIUM CHLORIDE 0.9% 1000ML 1,000 ML IVS PRN (21:52)
[2020-12-11] MEDS ORDERED: IV SET AND CAP CHANGE INJ INJ SCH (22:00)
[2020-12-11] MEDS ORDERED: SODIUM CHLORIDE 0.9% 1000ML 1,000 ML ONE (22:24)
[2020-12-11] MEDS: levoFLOXacin 750MG IV 750 MG in PREMIX BAG 1 BAG IVPB SCH (22:28)
[2020-12-11] MEDS: ENOXAPARIN SODIUM 40 MG/0.4 ML SYG SUBCU SCH (22:28)
[2020-12-12] MEDS: OMEPRAZOLE CAP 20 MG CAP PO SCH (06:00)
--- NOTE | 2020-12-12 07:14 | RAD ---
EXAMINATION: Chest x-ray one view. INDICATION: Pneumonia COMPARISON: 12/11/2020 TECHNIQUE: Frontal radiograph chest. FINDINGS: Left chest wall cardiac device with leads unchanged. Right Mediport with tip in the SVC. Overlying EKG leads and wires obscure portions of the lungs. The cardiac silhouette is enlarged and stable Right pleural effusion with overlying airspace opacities. There are scattered airspace opacities throughout the entire right lung as well as at the left lung base. There is no pneumothorax. IMPRESSION: Airspace opacities are present throughout the right lung as well as at the left lung base. Overall, no significant change from prior. Electronically signed by: Theo France MD 12/12/2020 7:12 AM [facility]
[2020-12-12] MEDS ORDERED: CEFEPIME 2 GM VIAL ONE (08:17)
[2020-12-12] MEDS ORDERED: SODIUM CHL 0.9% 100ML MINI-BAG 100 ML IVPB ONE (08:17)
[2020-12-12] MEDS: CEFEPIME 2 GM in SODIUM CHL 0.9% 50ML MIN-BAG+ 50 ML IVPB SCH ×2 (08:51→20:05)
[2020-12-12] MEDS: guaiFENesin ER TAB 600 MG TAB PO SCH ×2 (08:53→20:13)
[2020-12-12] MEDS: IPRATROPIUM/ALBUTEROL 3 ML VIAL INH SCH ×4 (09:39→20:35)
[2020-12-12] MEDS: CLOPIDOGREL 75 MG TAB PO SCH (09:55)
[2020-12-12] MEDS: ASPIRIN (CHEWABLE) 81 MG TAB PO SCH (09:55)
[2020-12-12] MEDS: ALLOPURINOL 300 MG TAB PO SCH (09:55)
[2020-12-12] MEDS ORDERED: GABAPENTIN 300 MG CAP PO SCH (15:00)
[2020-12-12] MEDS ORDERED: GABAPENTIN 400 MG CAP ONE ×2 (15:57→19:57)
[2020-12-12] MEDS ORDERED: FINASTERIDE 5 MG TAB ONE (19:56)
[2020-12-12] MEDS ORDERED: BIFIDOBACTERIUM INFANTIS 4 MG CAP ONE (19:56)
[2020-12-12] MEDS ORDERED: SIMVASTATIN 20 MG TAB ONE (19:56)
[2020-12-12] MEDS ORDERED: LORATADINE 10 MG TAB PO ONE (19:56)
[2020-12-12] MEDS ORDERED: TAMSULOSIN 0.4 MG CAP ONE (19:56)
[2020-12-12] MEDS ORDERED: FLUTICASONE PROP 0.05% NASAL 16 GM BTTL ONE (19:57)
[2020-12-12] MEDS: GABAPENTIN 400 MG CAP PO SCH (20:13)
[2020-12-12] MEDS: LORATADINE 10 MG TAB PO SCH (20:13)
[2020-12-12] MEDS: FINASTERIDE 5 MG TAB PO SCH (20:13)
[2020-12-12] MEDS: BIFIDOBACTERIUM INFANTIS 4 MG CAP PO SCH (20:13)
[2020-12-12] MEDS: FLUTICASONE PROP 0.05% NASAL 16 GM BTTL BNAS SCH (20:13)
[2020-12-12] MEDS: TAMSULOSIN 0.4 MG CAP PO SCH (20:14)
[2020-12-12] MEDS: SIMVASTATIN 20 MG TAB PO SCH (20:14)
[2020-12-12] MEDS ORDERED: NON-FORMULARY MEDICATION 1 EA MIS (Levocetirizine Dihydrochloride [Levocetirizine Dihydroc PO SCH (21:00)
[2020-12-12] MEDS ORDERED: FLUTICASONE FUROATE 50 MCG SCH (21:00)
[2020-12-12] MEDS: levoFLOXacin 750MG IV 750 MG in PREMIX BAG 1 BAG IVPB SCH (21:22)
[2020-12-12] MEDS: ENOXAPARIN SODIUM 40 MG/0.4 ML SYG SUBCU SCH (21:24)
[2020-12-13] MEDS ORDERED: ALBUTEROL SULFATE 2.5 MG/3 ML VIAL NEB ONE (02:59)
[2020-12-13] MEDS ORDERED: LEVOTHYROXINE SODIUM 0.075 MG TAB ONE (04:45)
[2020-12-13] MEDS: OMEPRAZOLE CAP 20 MG CAP PO SCH (05:33)
[2020-12-13] MEDS: LEVOTHYROXINE SODIUM 0.075 MG TAB PO SCH (05:33)
[2020-12-13] MEDS ORDERED: LEVOTHYROXINE SODIUM 75 MCG PO SCH (07:00)
[2020-12-13] MEDS: CEFEPIME 2 GM in SODIUM CHL 0.9% 50ML MIN-BAG+ 50 ML IVPB SCH ×2 (07:24→20:32)
--- NOTE | 2020-12-13 07:27 | RAD ---
EXAM: X-RAY CHEST, 2 VIEWS HISTORY: Pneumonia. COMPARISON: Chest x-ray from 12/12/2020. TECHNIQUE: PA and lateral views of the chest. FINDINGS: Lungs: Stable confluent peripheral groundglass opacities in both lungs. Slight asymmetric right lung volume loss and elevation of the right hemidiaphragm due to lateral pleural thickening or prior partial lobectomy. Pleural space: No pneumothorax or pleural effusion is present. Heart: Mildly enlarged. Bones: No acute bone abnormality. IMPRESSION: Stable exam. Stable mostly peripheral airspace opacities in both lungs. Electronically signed by: Malik Barreto MD 12/13/2020 7:25 AM INFORMATION CLERK [employer]
--- NOTE | 2020-12-13 07:33 | CT ---
EXAM DESCRIPTION: Cervical Spine 12/13/2020 7:24 AM BROKERAGE COORDINATOR CLINICAL HISTORY: 85 years, Male, c2 fx COMPARISON: 11/29/2020 PROCEDURE: Multiple axial CT images through the cervical spine were obtained at 2 mm slice thickness at 2 mm interval reconstruction. In addition 2-D multiplanar reformats and the sagittal coronal plane were performed and reviewed. An individualized dose optimization technique, Automated Exposure Control, was utilized for the performed procedure. FINDINGS: There is mild diffuse bony osteopenia. There is diffuse degenerative disc disease anterior arch of the C1 and dens. Degenerative disc disease with anterior posterior osteophyte complex and decreased intervertebral disc height at C3/C4 C4/C5 C5/C6 C6/C7. Significant posterior osteophyte complex with calcification along the posterior ligament at C5/C6. There is spinal canal narrowing C5/C6 of approximately 8.5 mm and C6/C7 of approximately 8 mm. The alignment, vertebral body heights are normal. There is again identified the presence of lytic lesion within the right lateral mass of C2 vertebra measuring 1.8 x 1.9 cm there is associated pathologic fracture right side similar to prior study. There is uncovertebral degenerative changes throughout the cervical spine. There is 2 mm anterolisthesis of C4 over C5 from most likely degenerative changes. There is no prevertebral soft tissue swelling. Sagittal coronal reformatted images demonstrate no subluxation or bony abnormalities. IMPRESSION: DIFFUSE MULTILEVEL DEGENERATIVE DISC DISEASE C3-C7 WITH SPINAL CANAL NARROWING C5-C6 AND C7. LYTIC LESION WITHIN THE RIGHT ASPECT OF THE C2 VERTEBRAL BODY WITH ASSOCIATED NONDISPLACED PATHOLOGIC FRACTURE, NO SIGNIFICANT INTERVAL CHANGE IN COMPARISON WITH PRIOR STUDY. . Electronically signed by: Renato Aleman MD 12/13/2020 7:32 AM BROKERAGE COORDINATOR
--- NOTE | 2020-12-13 07:40 | CT ---
EXAM: CT Chest COMPARISON: CT chest November 27, 2020 INDICATION: MAIN pna TECHNIQUE: CT images through the chest without IV contrast. Multiplanar reformats. Automated exposure control was utilized on this examination as a dose lowering technique. CT CHEST FINDINGS: Heart and mediastinum: Heart size is normal with small pericardial effusion. Aortic valve replacement is noted. Right chest port and left chest pacemaker in place. Severe multivessel calcified atherosclerosis is present. Mediastinal lymph nodes are increased in number but not significantly increased in size and are favored to be reactive. Thyroid gland: Visualized portions are normal. Lungs: Severe emphysema with scattered bullae and subpleural fibrotic changes. Cavitation within previously consolidated area of the anterior left upper lobe is again noted. Stable small cavitating consolidation in the lingula and left lower lobe. Stable 1.9 cm subpleural nodule of the right lower lobe on series 4 image 81. Grossly stable 2.7 cm area of consolidation/pleural thickening of the medial right upper lobe on series 4 image 59. Stable pleural thickening measuring 2.0 cm on series 4 image 51, left upper lobe. Airways: No filling defects. There are scattered areas of bronchiectasis. Pleura: No pneumothorax. Small bilateral pleural effusions. Areas of scattered pleural thickening as noted above. Subphrenic structures: A 3.4 cm round mass adjacent to the left adrenal gland is noted on series 2 image 72. A similar 2.6 cm mass is noted at the right adrenal gland on series 2 image 67. Musculoskeletal and soft tissues: Thoracic spondylosis is present. Surgical changes of the posterior right seventh rib. Surgical changes of the right humerus. IMPRESSION: 1. Stable severe emphysema with scattered bullae and subpleural fibrotic changes. Areas of consolidation with central cavitation and several areas of subpleural thickening are stable from November 27. These are favored to represent pneumonia superimposed upon chronic emphysema/fibrosis, however metastatic disease is not excluded. Small bilateral pleural effusions are also noted. 2. Bilateral adrenal masses measuring 3.4 cm on the left and 2.6 cm on the right most likely represent metastases. 3. Severe atherosclerosis. 4. Small pericardial effusion. Electronically signed by: Valdez Rodriguez MD 12/13/2020 7:39 AM NEONATAL NURSE
[2020-12-13] MEDS: HYDROcodone 5MG/APAP 325MG 1 EA TAB PO PRN ×2 (07:42→20:34)
[2020-12-13] MEDS: IPRATROPIUM/ALBUTEROL 3 ML VIAL INH SCH ×4 (08:43→19:45)
[2020-12-13] MEDS: GABAPENTIN 400 MG CAP PO SCH ×3 (09:13→20:32)
[2020-12-13] MEDS: ALLOPURINOL 300 MG TAB PO SCH (09:13)
[2020-12-13] MEDS: CLOPIDOGREL 75 MG TAB PO SCH (09:13)
[2020-12-13] MEDS: BISACODYL TAB 5 MG TAB PO SCH (09:13)
[2020-12-13] MEDS: BIFIDOBACTERIUM INFANTIS 4 MG CAP PO SCH ×2 (09:13→20:32)
[2020-12-13] MEDS: ASPIRIN (CHEWABLE) 81 MG TAB PO SCH (09:13)
[2020-12-13] MEDS: guaiFENesin ER TAB 600 MG TAB PO SCH ×2 (09:13→20:32)
[2020-12-13] MEDS ORDERED: amLODIPine BESYLATE 5 MG TAB ONE (09:57)
--- NOTE | 2020-12-13 14:07 | PN ---
SUPERVISING PHYSICIAN: Maurisio Rubin MD DATE: 12/13/20 SUBJECTIVE: The patient is lying in bed. He is asleep. He awakens easily. He has no complaints of shortness of breath, nausea or vomiting. No chest pain. We discussed talking to neuro telemedicine in regards to his neck fracture and he understands he will hopefully have physical therapy after completion of that referral. OBJECTIVE: VITAL SIGNS: Temperature 98, heart rate 106, blood pressure 157/70, respiratory rate 22, O2 saturation 94% on 2 liters nasal cannula. RESPIRATORY: Somewhat diminished throughout. CARDIAC: Regular rate and rhythm. At times he is slightly tachycardic. NEUROLOGIC: Awake, alert and oriented times three. LABORATORY: WBCs 11,600, hemoglobin 9.8, hematocrit 30.4. He has a left shift on differential. Electrolytes are basically within normal limits. Creatinine 0.96. MICROBIOLOGY: Preliminary urine culture shows no growth after 24 hours. Preliminary blood cultures show no growth after 2 hours. RADIOLOGY: Chest x-ray shows stable exam, stable mostly peripheral airspace opacities in both lungs. Cervical spine CT shows diffuse multilevel degenerative disc disease, C3 through C7 with spinal canal narrowing at C5 to C6 and C7. Lytic lesion within the right aspect of the C2 vertebral body with associated nondisplaced pathologic fracture. No significant interval change in comparison with prior study. Chest CT shows 1) Stable severe emphysema with scattered bullae and subpleural fibrotic changes. Areas of consolidation with central capitation and several areas of subpleural thickening stable from 11/27/20. These are favored to represent pneumonia superimposed upon chronic emphysema/fibrosis, however, metastatic disease is not excluded. Small bilateral pleural effusions are also noted. 2) Bilateral adrenal masses measuring 3.4 cm on the left and 2.6 cm on the right, most likely representing metastasis. 3) Severe atherosclerosis. 4) Small pericardial effusion. ASSESSMENT: 1. Sepsis related to bilateral pneumonia, most likely community acquires. Heart rate is 108, respiratory rate 24, WBCs 17,600. 2. Altered mental status, most likely secondary to #1, improved. 3. Acute renal insufficiency with baseline creatinine of 0.8. Admitting creatinine was 1.21, slowly improving. 4. Neck pain secondary to a recent fall on 11/29/20. He has a C2 lytic, nondisplaced fracture. There are no other known injuries. 5. Lung cancer. He has finished radiation. He continues on chemotherapy. 6. Hypertension. PLAN: We will continue present supportive care including his present antibiotics. We will consult tele-neuro today to get recommendations on physical therapy. He will continue with his soft collar. It was reported by his primary care physician that he is much more comfortable with the soft collar than without it. I have ordered lab for in the morning. He is to have a CT of the chest with contrast as an outpatient, so we will get that in the next day so. We will continue to monitor and treat as needed. #[id number] [facility]
[2020-12-13] MEDS: LORATADINE 10 MG TAB PO SCH (20:33)
[2020-12-13] MEDS: FINASTERIDE 5 MG TAB PO SCH (20:33)
[2020-12-13] MEDS: TAMSULOSIN 0.4 MG CAP PO SCH (20:33)
[2020-12-13] MEDS: SIMVASTATIN 20 MG TAB PO SCH (20:33)
[2020-12-13] MEDS: FLUTICASONE PROP 0.05% NASAL 16 GM BTTL BNAS SCH (20:34)
[2020-12-13] MEDS: ENOXAPARIN SODIUM 40 MG/0.4 ML SYG SUBCU SCH (21:54)
[2020-12-13] MEDS: levoFLOXacin 750MG IV 750 MG in PREMIX BAG 1 BAG IVPB SCH (21:54)
[2020-12-14] MEDS: OMEPRAZOLE CAP 20 MG CAP PO SCH (05:45)
[2020-12-14] MEDS: LEVOTHYROXINE SODIUM 0.075 MG TAB PO SCH (05:45)
[2020-12-14] MEDS: CEFEPIME 2 GM in SODIUM CHL 0.9% 50ML MIN-BAG+ 50 ML IVPB SCH (08:06)
[2020-12-14] MEDS: CLOPIDOGREL 75 MG TAB PO SCH (08:07)
[2020-12-14] MEDS: guaiFENesin ER TAB 600 MG TAB PO SCH (08:07)
[2020-12-14] MEDS: ALLOPURINOL 300 MG TAB PO SCH (08:07)
[2020-12-14] MEDS: BIFIDOBACTERIUM INFANTIS 4 MG CAP PO SCH (08:07)
[2020-12-14] MEDS: GABAPENTIN 400 MG CAP PO SCH (08:07)
[2020-12-14] MEDS: ASPIRIN (CHEWABLE) 81 MG TAB PO SCH (08:07)
[2020-12-14] MEDS: BISACODYL TAB 5 MG TAB PO SCH (08:07)
[2020-12-14] MEDS: IPRATROPIUM/ALBUTEROL 3 ML VIAL INH SCH ×2 (08:18→13:05)
--- NOTE | 2020-12-14 10:30 | CT ---
EXAM DESCRIPTION: Chest w/Contrast CLINICAL HISTORY: 85 years Male, lung ca COMPARISON: CT chest 12/05/2020. TECHNIQUE: CT images through the chest with IV contrast. Multiplanar reformations provided. This exam was performed according to our departmental dose-optimization program, which includes automated exposure control, adjustment of the mA and/or kV according to patient size and/or use of iterative reconstruction technique. CT CHEST FINDINGS: Heart and mediastinum: Moderately large heart. Trace pericardial effusion. Unremarkable esophagus. Severe atherosclerosis. Mediastinal lymph nodes measure up to 10 mm short axis right paratracheal and up to 10 mm short axis subcarinal. No hilar adenopathy. Thyroid Gland: 8 mm hypodense right thyroid nodule. Lungs: Severe emphysematous changes bilaterally. Unchanged 2.0 cm ovoid opacity in the posterior right lower lobe. Unchanged thick-walled cavitary lesion in the lingula measuring up to 3.3 cm, unchanged in size at same site measurements. Unchanged spiculated mass in the left lower lobe measuring 2.0 cm, stable in size at same site measurements. Airways: Normal. Pleura: Small bilateral pleural effusions. No pneumothorax. Musculoskeletal and Soft Tissues: No acute fracture or aggressive appearing osseous lesion. : Chronic deformity to the posterior right ribs. Cardiac device in left chest wall.. Subphrenic Structures: Normal. IMPRESSION: 1. No acute abnormality of the chest. 2. Severe emphysema with unchanged posterior right lower lobe opacity, inferior lingula thick-walled cavitary mass, spiculated left lower lobe nodules. Again, these are new when compared to CT chest 05/25/2020 but not significantly changed compared to CT chest 11/27/2020. Although these may favor to be infectious or inflammatory, continued interval follow-up is recommended. If desired, PET/CT may be obtained for further workup. If indicated, these would be amenable to CT-guided biopsy for further evaluation as well. Electronically signed by: Luis Murillo MD 12/14/2020 10:29 AM [employer]
[2020-12-14 13:22] VITALS: BP 99/59; TEMP 97.3; O2SAT 100
--- NOTE | 2020-12-15 21:11 | DS ---
SUPERVISING PHYSICIAN: Maurisio Rubin M.D. DISCHARGE DIAGNOSIS: 1. Sepsis related to bilateral pneumonia, most likely community acquired. Heart rate on admission was 108, respiratory rate 24, WBCs 17,600. 2. Altered mental status, most likely secondary to #1 that has improved. 3. Acute renal insufficiency with baseline creatinine of 0.8. Admitting creatinine was 1.21. 4. Neck pain secondary to a recent fall on 11/29/20. He has a C2 nondisplaced lytic fracture. There are no other known injuries. 5. Lung cancer. He has finished radiation. He continues on chemotherapy. 6. Hypertension. HISTORY OF PRESENT ILLNESS: This is an 85-year-old male patient who has a past medical history of chronic obstructive pulmonary disease and lung cancer. He came to the Emergency Room due to altered mental status. It had been reported that he had been confused since earlier in the day. He was wearing a soft collar and had fallen and had some neck pain from 11/29/20. CT scan showed he had a C2 nondisplaced lytic fracture. In the Emergency Room his neuro status did improve. He was given some fluids and started on ceftriaxone. After being admitted to the Floor, he was changed to cefepime and Levaquin. Electrolytes were basically within normal limits. Lactic acid was 1.4. Troponin was elevated at 0.09, but there were no complaints of chest pain. There were no noted EKG changes. Creatinine was 1.21 and his baseline creatinine is usually about 0.8. He was admitted to the hospital in stable condition. HOSPITAL COURSE: He was started on the pneumonia guidelines. He was COVID negative. Cefepime and Levaquin were continued. He was also continued on aggressive pulmonary hygiene with bronchodilators as both p.r.n. and scheduled nebulizers. There was some concern about the C2 fracture. The patient had not been wearing his soft collar for a week or so, but started wearing it on his own because his neck felt much better with it. After admission, a cervical spine CT was done and there was not much change from the CT of the cervical spine from 11/29/20. Initially [facility] was consulted via Neuro Telemedicine and due to the C2 fracture they felt that it was a neurosurgery issue. Dr. Barrow in [place] was called. Based on reviewing the CT film, he felt that the area on C2 was due to the metastatic disease and he felt that some basic physical therapy would be appropriate as long as the patient continued to wear the soft collar. He said that he would be glad to consult for any issues on a further date. The patient's WBCs normalized. His vital signs were stable. He did have a followup CT of the chest that was to be ordered as an outpatient. Due to his lung cancer, today he will be discharged home in stable condition with home health and physical therapy. LABORATORY: WBCs at admitting were 17,600 and are now 8,700. H&H is stable at 9.8 and 30.2. He does have a left shift on his differential. Electrolytes have mostly been within normal limits with the exception of his calcium was slightly low at 8.2 and is now 8.5. BUN was 27 on admission and is now 16, creatinine was 1.21 and is now 0.9. Urinalysis was unremarkable. Preliminary blood cultures show no growth after 48 hours. Urine culture shows no growth after [address] in the Emergency Room showed no evidence of an acute intracranial process. Chest CT without contrast showed: 1. Stable, severe emphysema with scattered bullae and subpleural fibrotic changes. Areas of consolidation with central cavitation and several areas of subpleural thickening are stable from November 27. These are favored to represent pneumonia superimposed upon chronic emphysema/fibrosis, however metastatic disease is not excluded. Small bilateral pleural effusions are also noted. 2. Bilateral adrenal masses measuring 3.4 cm on the left and 2.6 cm on the right most likely represent metastases. 3. Severe atherosclerosis. 4. Small pericardial effusion. CT of the chest with contrast shows: 1. No acute abnormality of the chest. 2. Severe emphysema with unchanged posterior right lower lobe opacity, inferior lingula thick-walled cavitary mass, spiculated left lower lobe nodules. Again, these are new when compared to CT chest , but not significantly changed compared to CT chest 11/27/2020. Although these may favor to be infectious or inflammatory, continued interval followup is recommended. If desired, PET/CT may be obtained for further workup. If indicated, these would be amenable to CT-guided biopsy for further evaluation as well. His final chest x-ray shows stable exam, stable mostly peripheral airspace opacities in both lungs. DISCHARGE PLAN: The patient will be discharged home in stable condition. He will be with [facility]. Again, please note above Dr. Barrow's recommendations for physical therapy and the patient should continue to wear his soft collar. He is to followup with Dr. Malin within 1 to 2 weeks. He is to resume his previous diet and medications, increase his activity as per physical therapy. In addition to his home medications, he is also to have Cefdinir and Levaquin as well as Align an Guaifenesin. He is to return to the hospital or followup with Dr. Malin for any problems or complications. DISCHARGE MEDICATIONS: 1. Aspirin. 2. Levothyroxine. 3. Tamsulosin. 4. Simvastatin. 5. Gabapentin. 6. Fluticasone. 7. Finasteride. 8. Lonetree fatty acids. 9. Nu Remedy Plus. 10. Levocetirizine. 11. Plavix. 12. Vitamin C. 13. Hydrocodone. 14. Albuterol. 15. Allopurinol. 16. Align. 17. Guaifenesin. 18. Bisacodyl. 19. Fiber. 20. Cefdinir. 21. Levaquin. #[id number] [facility]
== END 2020-12-14 14:05 | disposition home health service (06) | DRG 871 ==
LOC: ER 18:40 → MS 21:25 → OBSVTOIN 21:25
PROVIDERS: ADMIT Nurse Practitioner; ATTEND Nurse Practitioner
PROC: B32T1ZZ Computerized Tomography (CT Scan) of Left Pulmonary Artery using Low Osmolar Contrast (ICD-10-PCS; principal; 2020-12-14)
PROC: B32S1ZZ Computerized Tomography (CT Scan) of Right Pulmonary Artery using Low Osmolar Contrast (ICD-10-PCS; 2020-12-14)
DX: A41.9 Sepsis, unspecified organism (principal); J18.9 Pneumonia, unspecified organism; C34.90 Malignant neoplasm of unspecified part of unspecified bronchus or lung; J44.0 Chronic obstructive pulmonary disease with (acute) lower respiratory infection; M84.48XD Pathological fracture, other site, subsequent encounter for fracture with routine healing; I10 Essential (primary) hypertension; N28.9 Disorder of kidney and ureter, unspecified; W19.XXXA Unspecified fall, initial encounter; Y92.9 Unspecified place or not applicable; I25.10 Atherosclerotic heart disease of native coronary artery without angina pectoris; E78.5 Hyperlipidemia, unspecified; E03.9 Hypothyroidism, unspecified; M10.9 Gout, unspecified; Z96.651 Presence of right artificial knee joint; Z95.2 Presence of prosthetic heart valve; Z95.0 Presence of cardiac pacemaker; Z88.5 Allergy status to narcotic agent; Z87.891 Personal history of nicotine dependence; Z79.82 Long term (current) use of aspirin; Z79.899 Other long term (current) drug therapy; Z79.02 Long term (current) use of antithrombotics/antiplatelets; Z79.891 Long term (current) use of opiate analgesic

== ENCOUNTER → 2021-01-10 | Outpatient (CLI) | payer MEDICARE ==
--- NOTE | 2021-01-11 17:02 | CT ---
EXAM: Abdomen/Pelvis w/Contrast (accession [id number]), Chest w/Contrast (accession [id number]) INDICATION: RESTAGING LUNG CA . COMPARISON: CT chest without contrast 05/25/[address] chest with contrast 12/14/2020 TECHNIQUE: CT of the chest, abdomen, and pelvis was performed following the administration of IV contrast. Multiple axial images and multiplanar reconstructions were generated. This exam was performed according to our departmental dose-optimization program, which includes automated exposure control, adjustment of the mA and/or kV according to patient size and/or use of iterative reconstruction technique. CHEST FINDINGS: Heart: Heart size is within normal limits. Abnormal contour of the cardiac apex with an appearance highly concerning for infiltrative metastatic disease involving the epicardium and myocardium. The cardiac mass measures up to approximately 7.2 x 4.8 x 5.7 cm (axial series 2 image 45). Great vessels: The caliber of the main pulmonary artery is within normal limits. The caliber of the aorta is within normal limits. Prosthetic aortic valve replacement is noted. Severe atherosclerosis in the thoracic aorta. Mediastinum: A centrally hypodense mass directly abuts the right lateral aspect of the ascending aorta and slightly compresses the superior vena cava, measuring up to at least approximately 3.9 x 3.5 x 5.2 cm (axial series 2 image 27). Multiple mildly enlarged mediastinal lymph nodes, increased in size from the prior study of 12/14/2020. Lungs: Severe emphysema with fibrosis, similar to the prior study. Progressive cavitary change at a mass in the lingula which abuts the cardiac apex and metastatic mass. This cavitary lesion measures up to 4.2 x 2.2 cm (axial series 8 image 86). Pleural-based mass in the left upper lobe, measuring up to 3.5 x 0.8 x 3.1 cm (axial series 8 image 43). Pleural-based mass in the right lower lobe measures up to 3.5 x 1.8 x 2.3 cm (axial series 8 image 81). Nodularity associated with a thin-walled cavitation in the anterior left upper lobe (axial series 8 image 38). Progressive cavitation of a 2.8 x 2.2 cm pulmonary nodule in the left lower lobe (axial series 8 image 95). No pleural effusion. No pneumothorax. Esophagus: Unremarkable appearance of the esophagus. Thyroid: Unremarkable appearance of the visualized portions of the thyroid gland. Bones: Osteopenia. No definite acute fracture is identified. Multiple right-sided remote rib deformities. No destructive osseous lesion. Reported changes in the spine. Body wall: Presumed gynecomastia noted in the right subareolar breast. ABDOMEN PELVIS FINDINGS: Liver: Unremarkable appearance of the liver. Gallbladder: Unremarkable appearance of the gallbladder. Pancreas: Unremarkable appearance of the pancreas. Spleen: Unremarkable appearance of the spleen. Adrenal glands: There are at least 2 right adrenal gland masses, measuring up to 2.3 cm and up to 3.5 cm, respectively. 4.0 cm left adrenal gland mass. Kidneys, ureters, bladder: No striated nephrograms or hydronephrosis. Multiple bilateral renal cysts. No obstructing renal stones. Unremarkable appearance of the visualized portions of the ureters. Mild irregularity of the urinary bladder wall, probably related to chronic urinary outlet obstruction. Stomach and bowel: Unremarkable appearance of the stomach. No dilated loops of small bowel. Colonic diverticulosis. The appendix is identified and appears normal. Prostate: Prostatic calcifications are noted. Peritoneum: No free fluid. No pneumoperitoneum. Lymph nodes: No lymphadenopathy. Vasculature: Severe atherosclerosis. Bones: Total right hip arthroplasty. Osteopenia. No definite acute fracture is identified. Severe degenerative changes in the spine. A sclerotic lesion in the L4 vertebral body probably represents a bone island, but indeterminate given other known metastatic disease. No other bone lesions are identified in the abdomen or pelvis. Body wall: 1.3 cm soft tissue nodule just beneath the skin surface in the anterior body wall at the level of the right hip (axial series 3 image 77). Indeterminate 2.2 cm rounded soft tissue nodule in the subcutaneous fat of the left buttock (axial series 3 image 61). IMPRESSION: 1. A 7.2 cm mass involves the myocardium at the cardiac apex, adjacent to a 4.2 cm cavitary pulmonary lesion in the lingula. 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 2. 3.9 cm centrally hypodense mass abutting the right lateral aspect of the ascending aorta and slightly compressing the superior vena cava, also compatible with metastasis. 3. Progressive cavitation of a 2.8 cm lung mass in the left lower lobe and multiple pleural-based lung masses as detailed above. 4. Multiple mildly enlarged mediastinal lymph nodes, compatible with metastatic lymphadenopathy. 5. Bilateral adrenal gland masses compatible with metastasis. 6. Several soft tissue nodules are noted in the subcutaneous fat of the body wall as discussed above, indeterminate. 7. Additional findings as described above. Electronically signed by: Julia Álvarez MD 01/11/2021 5:00 PM [facility]
== END ==
LOC: CT 11:08
PROVIDERS: ATTEND Obstetrics & Gynecology
DX: Z01.812 Encounter for preprocedural laboratory examination (principal); C34.12 Malignant neoplasm of upper lobe, left bronchus or lung; R19.09 Other intra-abdominal and pelvic swelling, mass and lump; I77.9 Disorder of arteries and arterioles, unspecified; E27.9 Disorder of adrenal gland, unspecified; R59.0 Localized enlarged lymph nodes; J43.9 Emphysema, unspecified; J84.10 Pulmonary fibrosis, unspecified; M95.4 Acquired deformity of chest and rib; M85.88 Other specified disorders of bone density and structure, other site; Z96.641 Presence of right artificial hip joint; Z95.2 Presence of prosthetic heart valve

== ENCOUNTER 2021-01-13 09:19 | Emergency (ER) | payer MEDICARE ==
[2021-01-13] MEDS ORDERED: KETOROLAC TROMETHAMINE INJ 30 MG/ML VIAL IV ONE (09:35)
[2021-01-13] MEDS ORDERED: PROCHLORPERAZINE INJ 10 MG/2 ML VIAL IV ONE (09:35)
[2021-01-13] MEDS ORDERED: MAGNESIUM SULFATE INJ 1 GM in SODIUM CHLORIDE 0.9% 100ML 100 ML IVPB ONE (09:35)
[2021-01-13] MEDS ORDERED: SODIUM CHLORIDE 0.9% 1000ML 1,000 ML IVS ONE (09:37)
--- NOTE | 2021-01-13 09:41 | ED.PDOC ---
History of Present Illness - General Chief Complaint: Headache Stated Complaint: headache x 2months Time Seen by Provider: 01/13/21 09:35 Source: patient, RN notes reviewed, Vital Signs reviewed, EMS notes reviewed, family - Exam Limitations: no limitations - History of Present Illness Initial Comments: Patient is an 85-year-old white male who presents with complaints of headaches for the last 2 months. The headaches are stabbing in nature. They are intermittent. At this time his headache is severe. It started about 6:00 this morning. Occasionally placing a wet rag on his head will improve the headache for short time. Nothing seems to make the headaches worse. There is no radiation of the pain. Timing/Duration: 4-6 hours Quality: severe, sharp Head Injury Location: frontal Recent Head Trauma: no recent headache/trauma, frequent headaches Improving Factors: other - Wet rag Worsening Factors: nothing Associated Symptoms: denies symptoms Allergies/Adverse Reactions: Allergies Morphine Allergy (Verified 12/11/20 22:21) Zolpidem [From Ambien] Adverse Reaction (Verified 12/11/20 22:21) adhesive tape Allergy (Uncoded 12/11/20 18:51) Home Medications: Ambulatory Orders Aspirin [Baby Aspirin] 81 mg PO QD 08/09/15 Fluticasone Furoate [Veramyst] 50 mcg NA BEDTIME 08/09/15 Gabapentin [Neurontin] 400 mg PO TID 08/09/15 Levothyroxine Sodium 75 mcg PO 0700 08/09/15 Simvastatin 20 mg PO BEDTIME 08/09/15 Tamsulosin HCl [Flomax] 0.4 mg PO BEDTIME 08/09/15 Finasteride 5 mg PO BEDTIME 08/10/16 Nu Remedy Plus 1 each PO BEDTIME 08/10/16 Benedict Xl 1 each PO QID 08/10/16 Ascorbic Acid [Vitamin C 500 mg] 1,000 mg PO DAILY 03/29/20 Clopidogrel Bisulfate [Plavix] 75 mg PO QD 03/29/20 Levocetirizine Dihydrochloride [Levocetirizine Dihydrochl] 5 mg PO BEDTIME 03/29/20 Albuterol Sulfate Nebs [Proventil Nebs] 3 ml NEB BID PRN 08/01/20 Allopurinol 300 mg PO DAILY 08/01/20 HYDROcodone 5MG/APAP 325MG [[place] 5/325] 1 tablet PO Q4HR PRN 08/01/20 Bisacodyl [Dulcolax] 5 mg PO DAILY 11/29/20 Fiber [Fiber Formula] 3 cap PO DAILY 11/29/20 Bifidobacterium Infantis [Align] 4 mg PO BID cap 12/14/20 Review of Systems - Review of Systems Constitutional: States: no symptoms reported, see HPI. Denies: chills, fever, malaise, weakness EENTM: States: no symptoms reported. Denies: eye pain, blurred vision, double vision Respiratory: States: no symptoms reported. Denies: cough, orthopnea, short of breath Cardiology: States: no symptoms reported. Denies: chest pain, palpitations, syncope Gastrointestinal/Abdominal: States: no symptoms reported. Denies: abdominal pain, constipation, diarrhea, nausea, vomiting Genitourinary: States: no symptoms reported. Denies: dysuria, frequency Musculoskeletal: States: no symptoms reported. Denies: back pain, joint pain, neck pain Skin: States: no symptoms reported. Denies: change in color, rash Neurological: States: see HPI, headache. Denies: tingling, tremors, weakness Endocrine: States: no symptoms reported. Denies: increased hunger, increased thirst, increased urine Hematologic/Lymphatic: States: no symptoms reported. Denies: blood clots, easy bleeding All other Systems: Reviewed and Negative, No Change from Baseline Past Medical History (General) - Patient Medical History Hx Seizures: No Hx Stroke: No Hx Dementia: No Hx Asthma: No Hx of COPD: Yes Hx Cardiac Disorders: No Hx Congestive Heart Failure: No Hx Pacemaker: Yes - 2017 Hx Hypertension: Yes Hx Thyroid Disease: No Hx Diabetes: No Hx Gastroesophageal Reflux: Yes Hx Renal Disease: No Hx Cancer: Yes - lung cancer Hx of HIV: No Hx Hepatitis C: No Hx MRSA: No - Vaccination History Hx Tetanus, Diphtheria Vaccination: Yes - unknown date Hx Influenza Vaccination: Yes - 2017 Hx Pneumococcal Vaccination: Yes - 2017 - Social History Hx Tobacco Use: No Hx Alcohol Use: No Hx Substance Use: No Hx Physical Abuse: No Hx Emotional Abuse: No Family Medical History - Family History Father Family History: No Known Living Status: Cause of : Old age Hx Family;Other: pt states he is unsure Physical Exam - Physical Exam General Appearance: Alert, Anxious, Obvious distress, Well Developed, Well Groomed, Well Hydrated, Well Nourished Eyes, Ears, Nose, Throat Exam: PERRL/EOMI, normal ENT inspection, pharynx normal Neck: non-tender, full range of motion, supple, normal inspection, trachea midline Cardiovascular/Chest: normal peripheral pulses, no edema, no gallop, no JVD, no murmur, tachycardia Respiratory: chest non-tender, lungs clear, normal breath sounds, no respiratory distress, no accessory muscle use Gastrointestinal/Abdominal: normal bowel sounds, non tender, soft, no organomegaly, no pulsatile mass Back Exam: normal inspection, no CVA tenderness, no vertebral tenderness Extremity: normal range of motion, non-tender, normal inspection, no pedal edema, no calf tenderness Mental Status: alert, oriented 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 01/13/21 13:37 Patient was found to have a mildly elevated troponin at 0.13. This is higher than he previously had. Patient absolutely denies any chest pain or shortness of breath at all. Second EKG states acute MN but I do not believe this to be the case as I suspect it is a known left bundle branch block. Plan on transfer patient to [facility] as his financial aid director, Dr. Lynch is there. Chest x-ray is concerning for a perihilar pneumonia. A CTA was performed. After the patient left the ED his CTA of the chest came back. It shows multiple masses in his chest and impinging upon the heart. I suspect this is from his cancer. All patient's labs and CT results were sent to [facility]. I did discuss the plan of care of transfer for further evaluation and treatment. The patient and his voiced understanding and agreement with the plan of care. Christos Jarquin M.D. #[id number] - Results/Orders Results/Orders: EKG Performed on [id number] @ 0910hrs: Demand pacemaker at 118 bpm, left atrial enlargement, left bundle branch block, abnormal EKG. No comparison EKG available at this time. Repeat EKG performed on 2020 at 1220 hrs.: Sinus rhythm with marked sinus arrhythmia with occasional PVCs and fusion complexes, left bundle branch block, old, abnormal EKG. EXAM: XR Chest, 1 View CLINICAL HISTORY: afib with rvr TECHNIQUE: Frontal view of the chest. COMPARISON: 12/13/2020 FINDINGS: Lungs: There is enlargement of the right hilar shadow. Diffuse coarse interstitial and parenchymal consolidation right greater than left unchanged. Pleural space: Stable right pleural effusion/thickening. No pneumothorax. Heart: Normal cardiac size and configuration. Mediastinum: No abnormality noted. Bones/joints: No osseous destruction or sclerosis noted. Tubes, lines and devices: Stable cardiac enlargement. Stable cardiac pacing wires in the right atrium and ventricle. Right subclavian central venous port terminates in the mid SVC. IMPRESSION: Interval enlargement of the right hilar shadow present. This could reflect a superimposed perihilar pneumonia. Vascular abnormality and adenopathy not excluded. Consider IV contrast CT chest. Appearance of the chest otherwise stable. Electronically signed by: Michelle Polanco MD 01/13/2021 11:33 AM 01/13/21 10:15 EKG STAT 01/13/21 10:55 Sodium Chloride 0.9% (Flush) [Saline Flush Syringe] 3 ml IV PRN PRN 01/13/21 11:39 Sodium Chloride 0.9% (Flush) [Saline Flush Syringe] 3 ml IV PRN PRN 01/13/21 12:18 EKG Assessment ONCE 01/13/21 12:30 EKG .ONCE 01/13/21 12:31 CTA Chest [CT] Stat 01/14/21 09:00 Pulse Ox Daily Laboratory Results - last 24 hr 01/13/21 01/13/21 11:03 11:03 WBC 16.4 H RBC 4.47 L Hgb 11.2 L Hct 35.4 L MCV 79.1 L MCH 25.0 L MCHC 31.6 L RDW 17.5 H Plt Count 203 MPV 7.5 Absolute Neuts (auto) 14.50 H Absolute Lymphs (auto) 1.00 Absolute Monos (auto) 0.70 Absolute Eos (auto) 0.10 Absolute Basos (auto) 0.20 H Neutrophils % 88.1 H Lymphocytes % 6.2 L Monocytes % 4.1 Eosinophils % 0.5 L Basophils % 1.1 PT 10.2 INR 1.03 PTT (SP) 25.4 Sodium 137 Potassium 4.0 Chloride 98 L Carbon Dioxide 26 Anion Gap 17.0 BUN 21 H Creatinine 0.92 BUN/Creatinine Ratio 22.8 H Random Glucose 134 H Serum Osmolality 278.8 Calcium 8.9 Magnesium 2.3 Total Bilirubin 0.3 Direct Bilirubin 0.1 Indirect Bilirubin 0.2 AST 18 ALT 19 Alkaline Phosphatase 54 Creatine Kinase 11 L CK-MB (CK-2) 2.5 CK-MB (CK-2) % Not Reportable Troponin I 0.13 H* B-Natriuretic Peptide 2020.0 H* Serum Total Protein 6.2 L Albumin 2.8 L TSH 2.36 EXAM DESCRIPTION: CTA Chest RadLex: CT CHEST ANGIOGRAPHY WITH IV CONTRAST CLINICAL HISTORY: tachycardia and worsening cxr; MAIN TECHNIQUE: CT angiogram of the chest using intravenous contrast. MIP reconstructions were performed. All CT scans at this facility use dose modulation, iterative reconstruction, and/or weight based dosing when appropriate to reduce radiation dose to as low as reas onably achievable. COMPARISON: CT scan done November 27, 2020 and chest x-ray done earlier today FINDINGS: Pulmonary arteries: The pulmonary arteries appear widely patent. There is no evidence for pulmonary embolism. Mediastinum: There is a mass seen along the right paratracheal stripe region measuring 4.3 cm x 4 cm in size. There are several small nonspecific subcentimeter lymph nodes seen within the mediastinum the largest measuring 7 mm just anterior to the trachea. There is diffuse atherosclerotic disease seen within the aorta. Aortic stent is seen to be in place. There appears to be a mass involving the base of the left ventricle with severe thickening of the wall of the ventricle measuring 6.7 cm x 4.6 cm in size this appears new from May 25, 2020 examination. There appears to be a mass seen within the lung parenchyma adjacent to this area measuring 3 cm x 2.6 cm. there is a small trace pericardial effusion. LUNGS: There is severe emphysematous changes seen in both lungs. There is a pleural-based mass seen within the left upper lobe measuring 3.4 cm x 1.7 cm there is a small pleural-based mass seen within the right upper lobe on image #76 measuring 7 mm. There is a 1.3 cm pulmonary nodule seen within the right upper lobe on image #80. There is a pleural-based mass seen within the right lower lobe on image #151 measuring 3.5 cm x 2 cm. There is a 1.8 cm mass within the left lower lobe on image #172. There is diffuse scarring seen in both lungs. visualized abdomen: There are bilateral adrenal masses on the left the mass measures 4.2 cm on the right the mass also measures 4.2 cm. The remainder of the visualized solid organs of the abdomen appear grossly normal however limited in their evaluation. Bones and soft tissues:The soft tissues and osseous structures a ppear unremarkable. IMPRESSION: Mass seen within the base of the left ventricle with severe thickening of the wall of the ventricle. With adjacent pulmonary mass. Concerning for invasion of the wall the left ventricle. Multiple pulmonary masses and pleural masses and mediastinal adenopathy. Soft tissue mass along the right paratracheal stripe region measures 4.3 cm x 4 cm, accounting for the abnormality seen on chest x-ray Bilateral adrenal masses. Severe emphysematous changes seen in both lungs. Electronically signed by: Marlon Moore MD 01/13/2021 1:28 PM ASSISTANT ACCOUNT EXECUTIVE Vital Signs 01/13/21 01/13/21 01/13/21 09:26 10:30 10:55 Temperature 96.0 F L Pulse Rate [ 115 H 115 H left brachial] Respiratory 22 21 Rate Blood Pressure 146/92 132/86 [left brachial] O2 Sat by Pulse 96 98 95 Oximetry 01/13/21 01/13/21 01/13/21 11:01 12:00 12:36 Temperature 96.4 F L Pulse Rate [ 124 H 63 left brachial] Respiratory 19 20 Rate Blood Pressure 148/115 147/78 [left brachial] O2 Sat by Pulse 95 97 97 Oximetry 01/13/21 13:15 Temperature 96.2 F L Pulse Rate [ 19 L left brachial] Respiratory 18 Rate Blood Pressure 174/95 [left brachial] O2 Sat by Pulse 96 Oximetry Departure - Departure Clinical Impression: NSTEMI (non-ST elevated myocardial infarction), Tachycardia, Chest mass, Lung mass Leukocytosis Qualifiers: Leukocytosis type: unspecified Qualified Code(s): D72.829 - Elevated white blood cell count, unspecified Headache Qualifiers: Headache type: unspecified Headache chronicity pattern: chronic headache Intractability: not intractable Qualified Code(s): R51.9 - Headache, unspecified Time of Disposition: 12:30 Disposition: Transfer to Hospital Condition: Fair Departure Forms: ED Discharge - Pt. Copy, Patient Portal Self Enrollment Instructions: DI for Headache Diet: resume usual diet Activity: as per physical therapy Referrals: Jamison Malin MD [Primary Care Provider] - 1-2 Weeks Home Medications: Ambulatory Orders Aspirin [Baby Aspirin] 81 mg PO QD 08/09/15 Fluticasone Furoate [Veramyst] 50 mcg NA BEDTIME 08/09/15 Gabapentin [Neurontin] 400 mg PO TID 08/09/15 Levothyroxine Sodium 75 mcg PO 0700 08/09/15 Simvastatin 20 mg PO BEDTIME 08/09/15 Tamsulosin HCl [Flomax] 0.4 mg PO BEDTIME 08/09/15 Finasteride 5 mg PO BEDTIME 08/10/16 Nu Remedy Plus 1 each PO BEDTIME 08/10/16 Benedict Xl 1 each PO QID 08/10/16 Ascorbic Acid [Vitamin C 500 mg] 1,000 mg PO DAILY 03/29/20 Clopidogrel Bisulfate [Plavix] 75 mg PO QD 03/29/20 Levocetirizine Dihydrochloride [Levocetirizine Dihydrochl] 5 mg PO BEDTIME 03/29/20 Albuterol Sulfate Nebs [Proventil Nebs] 3 ml NEB BID PRN 08/01/20 Allopurinol 300 mg PO DAILY 08/01/20 HYDROcodone 5MG/APAP 325MG [[place] 5/325] 1 tablet PO Q4HR PRN 08/01/20 Bisacodyl [Dulcolax] 5 mg PO DAILY 11/29/20 Fiber [Fiber Formula] 3 cap PO DAILY 11/29/20 Bifidobacterium Infantis [Align] 4 mg PO BID cap 12/14/20 Transfer to Outside Facility - Transfer Information Decision to Transfer Date: 01/13/21 Decision to Transfer Time: 12:15 Reason for Transfer: required specialist not available Accepting Provider:: Dr. Ackerman Accepting Facility: [facility]
[2021-01-13] MEDS ORDERED: fentaNYL CITRATE INJ 50 MCG/ML 2 ML AMP IV ONE (10:47)
[2021-01-13] MEDS ORDERED: SODIUM CHLORIDE 0.9% (FLUSH) 10 ML SYG IV PRN ×2 (10:55→11:39)
[2021-01-13] MEDS ORDERED: METOPROLOL TARTRATE INJ 5 MG/5 ML VIAL IV ONE (11:03)
--- NOTE | 2021-01-13 11:34 | RAD ---
EXAM: XR Chest, 1 View CLINICAL HISTORY: afib with rvr TECHNIQUE: Frontal view of the chest. COMPARISON: 12/13/2020 FINDINGS: Lungs: There is enlargement of the right hilar shadow. Diffuse coarse interstitial and parenchymal consolidation right greater than left unchanged. Pleural space: Stable right pleural effusion/thickening. No pneumothorax. Heart: Normal cardiac size and configuration. Mediastinum: No abnormality noted. Bones/joints: No osseous destruction or sclerosis noted. Tubes, lines and devices: Stable cardiac enlargement. Stable cardiac pacing wires in the right atrium and ventricle. Right subclavian central venous port terminates in the mid SVC. IMPRESSION: Interval enlargement of the right hilar shadow present. This could reflect a superimposed perihilar pneumonia. Vascular abnormality and adenopathy not excluded. Consider IV contrast CT chest. Appearance of the chest otherwise stable. Electronically signed by: Michelle Polanco MD 01/13/2021 11:33 AM ARTIFICIAL BREEDING RANCH SUPERVISOR
[2021-01-13] MEDS ORDERED: ASPIRIN (CHEWABLE) 81 MG TAB PO ONE (12:14)
[2021-01-13] MEDS ORDERED: NITROGLYCERIN 2% 1 GM UD TOP ONE (12:15)
--- NOTE | 2021-01-13 13:30 | CT ---
EXAM DESCRIPTION: CTA Chest RadLex: CT CHEST ANGIOGRAPHY WITH IV CONTRAST CLINICAL HISTORY: tachycardia and worsening cxr; MAIN TECHNIQUE: CT angiogram of the chest using intravenous contrast. MIP reconstructions were performed. All CT scans at this facility use dose modulation, iterative reconstruction, and/or weight based dosing when appropriate to reduce radiation dose to as low as reasonably achievable. COMPARISON: CT scan done November 27, 2020 and chest x-ray done earlier today FINDINGS: Pulmonary arteries: The pulmonary arteries appear widely patent. There is no evidence for pulmonary embolism. Mediastinum: There is a mass seen along the right paratracheal stripe region measuring 4.3 cm x 4 cm in size. There are several small nonspecific subcentimeter lymph nodes seen within the mediastinum the largest measuring 7 mm just anterior to the trachea. There is diffuse atherosclerotic disease seen within the aorta. Aortic stent is seen to be in place. There appears to be a mass involving the base of the left ventricle with severe thickening of the wall of the ventricle measuring 6.7 cm x 4.6 cm in size this appears new from May 25, 2020 examination. There appears to be a mass seen within the lung parenchyma adjacent to this area measuring 3 cm x 2.6 cm. there is a small trace pericardial effusion. LUNGS: There is severe emphysematous changes seen in both lungs. There is a pleural-based mass seen within the left upper lobe measuring 3.4 cm x 1.7 cm there is a small pleural-based mass seen within the right upper lobe on image #76 measuring 7 mm. There is a 1.3 cm pulmonary nodule seen within the right upper lobe on image #80. There is a pleural-based mass seen within the right lower lobe on image #151 measuring 3.5 cm x 2 cm. There is a 1.8 cm mass within the left lower lobe on image #172. There is diffuse scarring seen in both lungs. visualized abdomen: There are bilateral adrenal masses on the left the mass measures 4.2 cm on the right the mass also measures 4.2 cm. The remainder of the visualized solid organs of the abdomen appear grossly normal however limited in their evaluation. Bones and soft tissues:The soft tissues and osseous structures appear unremarkable. IMPRESSION: Mass seen within the base of the left ventricle with severe thickening of the wall of the ventricle. With adjacent pulmonary mass. Concerning for invasion of the wall the left ventricle. Multiple pulmonary masses and pleural masses and mediastinal adenopathy. Soft tissue mass along the right paratracheal stripe region measures 4.3 cm x 4 cm, accounting for the abnormality seen on chest x-ray Bilateral adrenal masses. Severe emphysematous changes seen in both lungs. Electronically signed by: Marlon Moore MD 01/13/2021 1:28 PM GUIDE DOG INSTRUCTOR
[2021-01-13 13:32] VITALS: BP 174/95; TEMP 96.2; O2SAT 96
== END 2021-01-13 13:15 | disposition short-term general hospital (02) ==
LOC: ER 09:19
DX: I21.4 Non-ST elevation (NSTEMI) myocardial infarction (principal); D72.829 Elevated white blood cell count, unspecified; R51.9 Headache, unspecified; R00.0 Tachycardia, unspecified; R91.8 Other nonspecific abnormal finding of lung field; R22.2 Localized swelling, mass and lump, trunk; I44.7 Left bundle-branch block, unspecified; I51.7 Cardiomegaly; I49.3 Ventricular premature depolarization; R94.31 Abnormal electrocardiogram [ECG] [EKG]; J44.9 Chronic obstructive pulmonary disease, unspecified; I10 Essential (primary) hypertension; K21.9 Gastro-esophageal reflux disease without esophagitis; Z95.0 Presence of cardiac pacemaker; Z85.118 Personal history of other malignant neoplasm of bronchus and lung; Z79.02 Long term (current) use of antithrombotics/antiplatelets; Z79.82 Long term (current) use of aspirin; Z88.5 Allergy status to narcotic agent; Z88.8 Allergy status to other drugs, medicaments and biological substances
CPT/HCPCS: 36415; 71045; 71275; 80048; 80076; 82550; 82553; 83880; 84443; 84484; 85025; 85610; 85730; 93005; 94760; J0780; J3010; J3475; J7030; J7050